=== PATIENT | male | born 1970 | race Two or more races ===

== ENCOUNTER 2024-02-06 07:05 | Day surgery (SDC) | payer OTHER ==
[2024-02-04 11:35] LABS: Urine Bacteria None Seen /hpf (None Seen)
[2024-02-04 12:28] LABS: Basophils # (auto) 0 10 ^3/uL (0-0.2); Basophils % (auto) 0.1 % (0.0-2.0); Eosinophils # (auto) 0 10 ^3/uL (0-0.8); Neutrophils # (auto) 8.6 10 ^3/uL (1.6-8.6); White Blood Cell 10.5 10^3/uL (4.4-10.8)
[2024-02-04 12:31] LABS: Eosinophils % (auto) 0.2 % (0.0-7.0); Lymphocytes # (auto) 0.7 10 ^3/uL (0.4-5.4); Lymphocytes % (auto) 7.1 % (10.0-50.0); Mean Corpuscular Hemoglobin 35.4 pg (28.0-32.0); Mean Corpuscular Hgb Conc. 34.2 g/dL (32.0-36.0); Mean Corpuscular Volume 103.3 fL (80.0-100.0); Monocytes # (auto) 1.1 10 ^3/uL (0-1.3); Monocytes % (auto) 10.5 % (0.0-12.0); Neutrophils % (auto) 82.1 % (37.0-80.0); Nucleated Red Blood Cells % 0.3 %; Red Blood Cells 6.05 10^6/uL (4.5-5.90)
[2024-02-04 12:39] LABS: Urine Blood Negative /uL (Negative); Urine Clarity Clear (Clear); Urine Color Yellow (Yellow); Urine Protein, UAD TRACE (Negative); Urine Specific Gravity 1.015 (1.001-1.035); Urine Urobilinogen 3 mg/dL (Negative); Urine WBC 1 /hpf (0 - 3); Urine pH 6.5 (5.0-9.0)
[2024-02-04 12:48] LABS: INR 1.25 (0.9-1.15); Partial Thromboplastin Time 25.1 SEC (24.5-34.5)
[2024-02-04 13:00] LABS: Alanine Aminotransferase 98 U/L (7-40); Albumin 3.8 g/dL (3.2-4.8); Alkaline Phosphatase 66 U/L (46-116); Anion Gap 4 (5-15); Aspartate Aminotransferase 37 U/L (13-40); BUN/Creatinine Ratio 11.1 (10.0-20.0); Blood Urea Nitrogen 11 mg/dL (9-23); Calcium 8.7 mg/dL (8.5-10.1); Carbon Dioxide 26 mmol/L (20-30); Chloride 106 mmol/L (98-107); Glucose 106 mg/dL (74-106); Sodium 136 mmol/L (136-145)
[2024-02-04 13:01] LABS: Bilirubin, Total 1.3 mg/dL (0.2-1.0); Total Protein 5.9 g/dL (5.7-8.2)
[2024-02-04 13:03] LABS: Hematocrit 62.5 % (41.0-53.0)
[2024-02-04 13:07] LABS: Hemoglobin 21.4 g/dL (13.5-17.5)
[2024-02-04 13:29] LABS: Macrocytosis Slight; Platelet Estimate Decreased
[~2024-02-06] VITALS: Ht 180.3 cm; Wt 68.0 kg
[~2024-02-06 07:05] MED LIST: ASPI1TAB20 PO; CARV3.1240 PO; LISI40TA16 PO; ROSU5TAB5 PO
[2024-02-06] MEDS ORDERED: ceFAZolin 2 GM/D5W50ml 50 ML IV ONE (07:14)
[2024-02-06] MEDS ORDERED: LIDOCAINE 2% (LOCAL ANESTH.) PF 5ml SDV ONE ×2 (07:23→08:10)
[2024-02-06] MEDS ORDERED: PROPOFOL 10 MG/ML 20 ML IV ONE ×3 (07:23→08:09)
[2024-02-06] MEDS ORDERED: fentaNYL CITRATE 100 MCG/2 ML VL ONE (07:23)
[2024-02-06] MEDS ORDERED: GLYCOPYRROLATE 0.2 MG/ML 1ML VIAL ONE (07:23)
[2024-02-06] MEDS ORDERED: DexAMETHasone SOD PHOS 10MG/1ML VIAL INJ ONE (07:23)
[2024-02-06] MEDS ORDERED: KETAMINE 50mg/ML 1ml syringe ONE (07:23)
[2024-02-06] MEDS ORDERED: ONDANSETRON HCL 4 MG/2 ML VIAL ONE (07:23)
[2024-02-06] MEDS ORDERED: KETOROLAC TROMETH 30 MG/ML 1ML VIAL ONE (07:23)
[2024-02-06] MEDS ORDERED: BUPIVACAINE W/ EPINEPH 0.5% INJ 50ML MDV IJ ONE (07:23)
[2024-02-06] MEDS ORDERED: POVIDONE IODINE 10 % TOPICAL OINT 30GM TOP ONE (07:24)
[2024-02-06] MEDS: CELECOXIB 100 MG CAP PO ONE (07:25)
[2024-02-06] MEDS: GABAPENTIN 400 MG CAP PO ONE (07:25)
[2024-02-06] MEDS: ACETAMINOPHEN IV 1000 MG/100ML (10MG/ML) IV ONE (07:25)
[2024-02-06] MEDS ORDERED: LIDOCAINE HCL 2% TOP JELLY 5ML TOP ONE (08:13)
[2024-02-06 08:33] VITALS: TEMP 99.3; O2SAT 99
[2024-02-06] MEDS ORDERED: ACE3T PO (08:37)
[2024-02-06] MEDS ORDERED: fentaNYL CITRATE 100 MCG/2 ML VL IV PRN (08:45)
[2024-02-06] MEDS ORDERED: LABETALOL HCL 5 MG/ML 4ML SYRINGE IV PRN (08:45)
[2024-02-06] MEDS ORDERED: NALOXONE HCL 0.4 MG/ML VIAL IV PRN (08:45)
[2024-02-06] MEDS ORDERED: hydrALAZINE HCL 20 MG/ML VL IV PRN (08:45)
[2024-02-06] MEDS ORDERED: ONDANSETRON HCL 4 MG/2 ML VIAL IV PRN (08:45)
[2024-02-06] MEDS ORDERED: FLUMAZENIL 0.1 MG/ML INJ 10ML MDV IV PRN (08:45)
[2024-02-06] MEDS ORDERED: ePHEDrine SULFATE 50 MG/ML AMP IV PRN (08:45)
[2024-02-06] MEDS ORDERED: HYDROmorphone HCL 2 MG/ML VL/or syr ONE (08:54)
[2024-02-06] MEDS: HYDROmorphone HCL 2 MG/ML VL/or syr IV PRN (08:57)
[2024-02-06] MEDS: oxyCODONE HCL 5MG TAB PO PRN (09:45)
[2024-02-06 10:10] VITALS: BP 138/85; PULSE 63; RESP 11; O2SAT 98
== END 2024-02-06 10:20 | disposition home or self-care (01) ==
LOC: SUR 07:05
PROVIDERS: ATTEND Surgery
DX: K40.90 Unilateral inguinal hernia, without obstruction or gangrene, not specified as recurrent (principal); I10 Essential (primary) hypertension; I25.2 Old myocardial infarction; G89.29 Other chronic pain; E78.5 Hyperlipidemia, unspecified; F17.210 Nicotine dependence, cigarettes, uncomplicated; Z79.01 Long term (current) use of anticoagulants; Z79.82 Long term (current) use of aspirin; Z79.899 Other long term (current) drug therapy; Z98.61 Coronary angioplasty status; Z98.890 Other specified postprocedural states
CPT/HCPCS: 36415; 49505; 80053; 81001; 85025; 85610; 85730; 86850; 86900; 86901; J0131; J0690; J1100; J1170; J1885; J2001; J2405; J2704; C1781

== ENCOUNTER 2024-10-21 10:04 | Inpatient (IN) | payer BC, OTHER ==
[2024-10-21] VITALS (36 sets, daily range): BP systolic 56–150; BP diastolic 58–100; PULSE 69–127; RESP 16–30; TEMP 97.6–100.4; O2SAT 79–100
[~2024-10-21] VITALS: Ht 182.9 cm; Wt 80.1 kg
[~2024-10-21 10:04] MED LIST changes: +ACE3T PO
[2024-10-21] MEDS ORDERED: EPINEPHrine HCL 250 ML IV ONE (10:09)
[2024-10-21] MEDS ORDERED: NOREPINEPHRINE 8 MG/250ML KIT 250 ML IV ONE (10:10)
[2024-10-21] MEDS: NOREPINEPHRINE 8 MG/250ML KIT 250 ML IV SCH (10:19)
[2024-10-21] MEDS ORDERED: NOREPINEPHRINE 8 MG/250ML KIT 250 ML IV SCH (10:30)
[2024-10-21 10:31] LABS: Urine Bacteria None Seen /hpf (None Seen)
[2024-10-21] MEDS: PROPOFOL 100 ML IV SCH (10:40)
--- NOTE | 2024-10-21 10:48 | RESUS ---
CODE BLUE ASSESSSMENT History of Events History of Events: Patient brought to ER via EMS as a secure code blue Patient was found down and unresponsive by co workers at an imaging center. Per EMS, co workers reported no palpable pulse. CPR was initiated by patients co workers. AED applied and delivered 2 shocks prior to EMS arrival. EN route to ER patient remained asystole. Epi x4 given en route to ER Initial Information Date: Oct 21, 2024 Time: 10:03 Location of Arrest: In Field Arrest Witnessed: Yes CPR started by whom: Bystander Pre-Hospital Care: ACLS Type of arrest: Cardiac Spontaneous Respirations: No Monitoring: Pulse Oximetry, Telemetry Crash Cart Opened and Supplies: Yes Airway Ventilation Breathing at Onset: Assisted Oxygen Delivery Method: Ambu-Bag Artificial Ventilation: Bag/Mask Intubation Time: 10:08 Intubation Size: 8.0 cuffed Intubated by: Dr Hidalgo Intubation Attempts: 1 Intubated orally: Yes Confirmation: Auscultation, Exhaled CO2 Comments: PATIENT SUCCESSFULLY INTUBATED AFTER ROSC ACHIEVED Circulation Circulation #1: Time: 10:03 Circulation Comment: asystole Circulation #2: Time: 10:05 Pulse Rate (adult): 127 Blood Pressure Systolic: 216 Blood Pressure Diastolic: 130 Temperature (Fahrenheit): 97.9 Circulation Comment: sinus tachycardia Procedure - IV Procedure - IV : IV start time: 10:03 IV Side: Right IV Location: Antecubital IV Catheter Type: Peripheral IV IV Placed: In Hospital IV Placed by YELITZA HIGGINS IV Line Care: Saline Flush Procedure - Intraosseous Site of Intraosseous: Tibia aletha-medial Intraosseous inserted by: EMS Medications & Response Medications and Responses #1: Medication Time: 10:03 ADULT Medications Given ADULT: Epinephrine 1 mg Route of Administration: IV EKG Rhythm: Asystole Medications and Responses #2: Medication Time: 10:04 ADULT Medications Given ADULT: Sodium Bacarbinate 50 meq, Calcium Chloride 10 mL Route of Administration: IV Medications and Responses #3: Medication Time: 10:06 ADULT Medications Given ADULT: Sodium Bacarbinate 50 meq Route of Administration: IV EKG Rhythm: Sinus Tachycardia Procedure - Central Venous Cat Central venous catheter time: 10:15 Central venous catheter site: Rt Femoral Central Venous Catheter Insert: DR HIDALGO Nurses Notes [place] Coma Scale Eye Opening: None (1) [place] Coma Scale Verbal: None (1) [place] Coma Scale Motor: None (1) [place]ow Total: 3 Pupil Reaction: Sluggish Bedside Blood Glucose: 185 Time Code Ended Time Code Ended: 10:05 Post Arrest Status: Ventilated Outcome of code: Successful Code Team Present: DR GYPSY HIDALGO RN RONALDO RN PADMINI PELAYO RT AMY LAP CUTTER TRUER OPERATOR CASSIUS TORREHS IZABELA RN PIERCE ROSC Time of ROSC: 10:05 Izabela Bowman Oct 21, 2024 10:48
[2024-10-21 10:49] LABS: Basophils # (auto) 0 10 ^3/uL (0-0.2); Basophils % (auto) 0.3 % (0.0-2.0); Eosinophils # (auto) 0.1 10 ^3/uL (0-0.8); Eosinophils % (auto) 1.1 % (0.0-7.0); Hematocrit 61.8 % (41.0-53.0); Hemoglobin 19.7 g/dL (13.5-17.5); Lymphocytes # (auto) 3.6 10 ^3/uL (0.4-5.4); Lymphocytes % (auto) 30.4 % (10.0-50.0); Mean Corpuscular Hemoglobin 31.7 pg (28.0-32.0); Mean Corpuscular Hgb Conc. 31.9 g/dL (32.0-36.0); Mean Corpuscular Volume 99.1 fL (80.0-100.0); Monocytes # (auto) 1.1 10 ^3/uL (0-1.3); Monocytes % (auto) 9.3 % (0.0-12.0); Neutrophils # (auto) 6.9 10 ^3/uL (1.6-8.6); Neutrophils % (auto) 58.9 % (37.0-80.0); Platelet Count (auto) 95 10^3/uL (140-450); Red Blood Cells 6.23 10^6/uL (4.5-5.90); Red Cell Distribution Width 16.2 % (11.8-14.3); White Blood Cell 11.7 10^3/uL (4.4-10.8)
[2024-10-21] MEDS: PROPOFOL 100 ML IV ONE (10:50)
[2024-10-21] MEDS: fentaNYL Drip 2500mCg/250mlNS 250 ML IV ONE (10:58)
[2024-10-21] MEDS: MIDAZOLAM DRIP 50 mg/50mL 50 ML IV ONE (10:58)
[2024-10-21] MEDS: fentaNYL Drip 2500mCg/250mlNS 250 ML IV SCH (11:00)
[2024-10-21] MEDS: MIDAZOLAM DRIP 50 mg/50mL 50 ML IV SCH (11:04)
[2024-10-21 11:07] LABS: Urine Blood TRACE /uL (Negative); Urine Clarity Turbid (Clear); Urine Color Yellow (Yellow); Urine Mucus FEW (None Seen); Urine Protein, UAD 1+ (Negative); Urine Specific Gravity 1.016 (1.001-1.035); Urine Squamous Epithelial Cell None Seen /hpf (<5); Urine Urobilinogen 2 mg/dL (Negative); Urine WBC 7 /HPF (0-3); Urine pH 6.5 (5.0-9.0)
[2024-10-21 11:20] LABS: Alkaline Phosphatase 101 U/L (46-116); Anion Gap 19 (5-15); BUN/Creatinine Ratio 6.2 (10.0-20.0); Calcium 10.2 mg/dL (8.7-10.4); Carbon Dioxide 22 mmol/L (20-31); Lipase 52 U/L (12-53); Potassium 3.7 mmol/L (3.5-5.1); Sodium 138 mmol/L (136-145)
[2024-10-21 11:21] LABS: Albumin 3.9 g/dL (3.2-4.8); Bilirubin, Total 0.6 mg/dL (0.2-1.0); Total Protein 6.4 g/dL (5.7-8.2)
[2024-10-21 11:23] LABS: Lactic Acid w/Reflex 9.2 mmol/L (0.4-2.0)
--- NOTE | 2024-10-21 11:32 | ED.PDOC ---
CPR-HPI HPI Comments Camden Lewis is a 54-year-old male patient who presents to the ED via EMS due to cardiac arrest. 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 When EMS arrived on scene hospital monitor showed PEA and one opportunity and afterwards only asystole, administer 4 epinephrine and intubated with laryngeal mask. Upon arrival to the ED hospital monitor evidence asystole, when epinephrine, two bicarbonate in one calcium was administered, obtaining ROSC after two rounds of CPR. Patient was intubated with the endotracheal tube 8., right femoral A-line and central line was placed as well, patient required norepinephrine, propofol, fentanyl and Versed at this point. Planning to complete [place] CT to rule out pulmonary embolism and aortic dissection. Could not obtain review of systems due to clinical status. Obtain past medical history from son who was at bedside Past medical history: Hypertension, questionable diabetes, COPD/emphysema, [place] in 2023 with placement of two stents, chronic back pain secondary to spinal fusion Surgical history: PCI with two stents placement in 2023 Family history: Noncontributory Social history: Lives in [place]. Recently stopped smoking two months ago due to diagnosis of emphysema (40 pack-year history of smoking). Ethanol abuse (drinks Tequila most days, son can not quantify). Medicine all CBD. Denies other drug abuse Allergies: Denies Home medication: Medical CBD, opiates, questionable warfarin, Plavix Chief Complaint: CPR Time Seen by MD: 11:21 Primary Care Provider: UNKNOWN Allergies: Coded Allergies: NO KNOWN ALLERGIES (Unverified , 10/21/24) Mode of Arrival: EMS Physical Exam General Appearance: No Apparent Distress, Other (Post ROSC) HEENT: Other (Patient's pupil are pint point under fentanyl. Sluggish corneal photo reflex) Neck: Full Range of Motion, Non-Tender, Normal, Normal Inspection Respiratory: Lungs Clear, Other (Patient requires endotracheal intubation with mechanical assisted ventilation) Cardiovascular: No Edema, No JVD, No Murmur, No Gallop, Normal Peripheral Pulses, Regular Rate/Rhythm Breast Exam: Deferred Gastrointestinal: No Organomegaly, Non Tender, No Pulsatile Mass, Normal Bowel Sounds, Soft Genitalia: Deferred Pelvic: Deferred Rectal: Deferred Extremities: No calf tenderness, Normal capillary refill, Normal inspection, Normal range of motion, Non-tender, No pedal edema Neurologic: Other (Post ROSC, non responsive) Cerebellar Function: NOT DONE Reflexes: NOT DONE Skin: Cyanosis Lymphatic: No Adenopathy EKG EKG : Comments Initially sinus tachycardia with incomplete LBBB Was a procedure done? Was a procedure done?: Yes Sedation Sedation?: No Informed consent obtained: No Arterial Puncture Indication: Assess ventilatory status, Assess acid-base status Procedure: Sterile Preparation, Arterial Punct Obtained Location: Right Femoral Informed consent obtained: No Risks/benefits/alt described: No UTO Consent Could not obtain informed consent due to clinical status of cardiac arrest and no family at bedside. Procedure supervised by Dr. Malhotra Central Line Recorder of insertion practice: Bit Welder Occupation of setter off: Other (Resdient) Indication: Hypotension, CVP monitoring, Volume resuscitation Room prepared for procedure: Yes Bit Welder performed hand hygien: Yes Maximal sterile barrier precau: Mask/Eye shield, Sterile gown, Cap, Sterlie gloves, Large sterlie drape Skin Preparation: Chlorhexidine gluconate Skin preparation completely dr: Yes Insertion site: Right, Femoral, Line secured Central line catheter type: [id number] dialysis Number of lumens: 3 Central line exchanged over a: No Antiseptic ointment applied to: Yes Post Assessment: Proper placement Informed consent obtained: No Risks/benefits/alt described: No UTO Consent Could not obtain informed consent due to clinical status. Procedure supervised by Dr. Malhotra Intubation Indication: Respiratory Insufficiency, Airway Protection Prep: Preoxygenation Pretreated with: Nothing Medicated with: Nothing Intubation Approach: Orotracheal Intubation size: cm (8) Informed consent obtained: No Risks/benefits/alt described: No UTO Consent Could not obtain informed consent due to clinical status, patient came in for cardiac arrest and no family at bedside. Switch laryngeal mask to endotracheal tube after obtaining ROSC. Procedure mixing supervisor Dr. Malhotra Differential Dx CPR Differential Diagnosis: Cardiopulmonary arrest, Cardiac Tamponade, Cardiogenic shock, Electrolyte disorder, Heart Block, Myocardial Infarction, Pneumothorax, Pulmonary Embolus, Respiratory Failure, Ruptured Aortic Aneurysm X-Ray, Labs, Meds, VS Vital Signs Date Time Temp Pulse Resp B/P (MAP) Pulse Ox O2 Delivery O2 Flow Rate FiO2 10/21/24 12:00 97.9 93 30 90/63 93 70 97.9 10/21/24 11:40 93 30 93 70 10/21/24 10:48 208.2 127 Ambu-Bag 10/21/24 10:29 90 20 90/63 (72) 90 100 10/21/24 10:21 82 16 56/60 (59) 87 100 10/21/24 10:07 127 10/21/24 10:04 97.9 Lab Test 10/21/24 12:53 10/21/24 12:44 10/21/24 11:00 10/21/24 10:25 Range/Units Lactic Acid Level 2.2 *H 0.4-2.0 mmol/L Troponin I High Sensitivity 291 *H </=54 ng/L Blood Gas Specimen Type Arterial Arterial Blood Gas Sample Site Arterial line Arterial line Blood Gas Patient Temperature 37.0 37.0 Arterial Blood Date Drawn [id number] Arterial Blood pH 7.341 L 7.192 *L 7.350-7.450 Arterial Blood Partial Pressure CO2 43.4 61.0 *H 35.0-48.0 mmHg Arterial Blood Partial Pressure O2 102.5 368.4 *H 83.0-108.0 mmHg Arterial Blood HCO3 22.9 22.9 21.0-28.0 mmol/L Elvin Test N/a N/a Blood Gas Total Hemoglobin > 21.00 *H > 21.00 *H 13.5-17.5 g/dL Blood Gas Set Respiration Rate 24.0 20.0 Blood Gas Modality Vent - ac Vent - ac FiO2 % 70.0 100.0 Blood Gas Tidal Volume 500.0 500.0 Blood Gas PEEP or CPAP 5.0 8.0 Blood Gas Critical Value Read Back Yes Yes Blood Gas Notified Whom . pollo espinosa m. md Blood Gas Notified Time [id number] Blood Gas Notified By Residence Leasing Agent john chinchilla hedis abstractor Urine Color Yellow Yellow Urine Clarity Turbid H Clear Urine pH 6.5 5.0-9.0 Urine Specific [place] 1.016 1.001-1.035 Urine Protein 1+ H Negative Urine Ketones Trace Negative Urine Blood Trace H Negative /uL Urine Nitrite Negative Negative Urine Bilirubin Negative Negative Urine Urobilinogen 2 H Negative mg/dL Urine Leukocyte Esterase 1+ Negative /uL Urine RBC 15 0 - 3 /hpf Urine Microscopic WBC 7 H 0-3 /HPF Urine Squamous Epithelial Cells None seen <5 /hpf Urine Bacteria None seen None Seen /hpf Urine Mucus Few None Seen Urine Glucose Normal Normal mg/dL Urine Opiates Screen Neg NEGATIVE Urine Fentanyl Screen Neg NEGATIVE Urine Barbiturates Screen Neg NEGATIVE Urine Phencyclidine Screen Neg NEGATIVE Urine Amphetamines Screen Neg NEGATIVE Urine Benzodiazepines Screen Neg NEGATIVE Urine Cocaine Screen Neg NEGATIVE Urine Cannabinoids Screen Pos NEGATIVE Test 10/21/24 10:23 Range/Units White Blood Count 11.7 H 4.4-10.8 10^3/uL Red Blood Count 6.23 H 4.5-5.90 10^6/uL Hemoglobin 19.7 H 13.5-17.5 g/dL Hematocrit 61.8 H 41.0-53.0 % Mean Corpuscular Volume 99.1 80.0-100.0 fL Mean Corpuscular Hemoglobin 31.7 28.0-32.0 pg Mean Corpuscular Hemoglobin Concent 31.9 L 32.0-36.0 g/dL Red Cell Distribution Width 16.2 H 11.8-14.3 % Platelet Count 95 L 140-450 10^3/uL Mean Platelet Volume 10.6 6.9-10.8 fL Neutrophils (%) (Auto) 58.9 37.0-80.0 % Lymphocytes (%) (Auto) 30.4 10.0-50.0 % Monocytes (%) (Auto) 9.3 0.0-12.0 % Eosinophils (%) (Auto) 1.1 0.0-7.0 % Basophils (%) (Auto) 0.3 0.0-2.0 % Neutrophils # (Auto) 6.9 1.6-8.6 10 ^3/uL Lymphocytes # (Auto) 3.6 0.4-5.4 10 ^3/uL Monocytes # (Auto) 1.1 0-1.3 10 ^3/uL Eosinophils # (Auto) 0.1 0-0.8 10 ^3/uL Basophils # (Auto) 0 0-0.2 10 ^3/uL Nucleated Red Blood Cells 0.0 % Sodium Level 138 136-145 mmol/L Potassium Level 3.7 3.5-5.1 mmol/L Chloride Level 97 L 98-107 mmol/L Carbon Dioxide Level 22 20-31 mmol/L Anion Gap 19 H 5-15 Blood Urea Nitrogen 8 L 9-23 mg/dL Creatinine 1.30 0.700-1.30 mg/dL Glomerular Filtration Rate Calc 65 >90 mL/min BUN/Creatinine Ratio 6.2 L 10.0-20.0 Serum Glucose 233 H 74-106 mg/dL Lactic Acid Level 9.2 *H 0.4-2.0 mmol/L Calcium Level 10.2 8.7-10.4 mg/dL Total Bilirubin 0.6 0.2-1.0 mg/dL Aspartate Amino Transferase (AST) 66 H 13-40 U/L Alanine Aminotransferase (ALT) 53 H 7-40 U/L Alkaline Phosphatase 101 46-116 U/L Troponin I High Sensitivity 16 </=54 ng/L B-Type Natriuretic Peptide 93.92 0-100 pg/mL Total Protein 6.4 5.7-8.2 g/dL Albumin 3.9 3.2-4.8 g/dL Lipase 52 12-53 U/L X-Ray, Labs, Meds, VS Comment Obtained laboratory work up, urine, chest x-ray, head CT and [place] CT abdomen pelvis and chest. Time of 1ST Reevaluation: 13:44 Reevaluation 1ST: Unchanged Patient Education/Counseling: Diagnosis, Treatment, Pt Unresponsive Family Education/Counseling: Diagnosis, Treatment, Prognosis Departure 1 Departure Time of Disposition: 13:44 Impression: Primary Impression: Cardiac arrest Disposition: ADMITTED INPATIENT Admit to: ICU Condition: Critical Additional Instructions: Completed complementary workup, ruled out STEMI, intracranial bleed, pulmonary embolism and aortic dissection. Pending echocardiogram to evaluate tamponade. Recommend admission patient for further workup and for eventual repeat of his CT in 48 hours to evaluate anoxic brain injury. Of completing CT and during echocardiogram, patient presented to episodes of lower GI bleed, send stool occult blood and indicated rectal tube. Patient has poor prognosis Critical Care Note Critical Care Time?: No Heart Score Heart Score: Heart Score Response (Comments) Value History N/A 0 EKG N/A 0 Age N/A 0 Risk Factors N/A 0 Troponin N/A 0 Total 0 Stability Stability form required: ANGELO Rowell RESIDENT Oct 21, 2024 11:32
[2024-10-21 11:34] LABS: Alanine Aminotransferase 53 U/L (7-40); Aspartate Aminotransferase 66 U/L (13-40); Blood Urea Nitrogen 8 mg/dL (9-23); Chloride 97 mmol/L (98-107); Glucose 233 mg/dL (74-106)
[2024-10-21 11:35] LABS: Amphetamine Screen, Urine Neg (NEGATIVE); Barbiturate Scree,Urine Neg (NEGATIVE); Benzodiazephine Screen, Urine Neg (NEGATIVE); Cannabinoid Screen, Urine Pos (NEGATIVE); Cocaine Screen, Urine Neg (NEGATIVE); Opiate Scree,Urine Neg (NEGATIVE); Phencyclidine Screen, Urine Neg (NEGATIVE)
--- NOTE | 2024-10-21 11:47 | DVH ---
EXAM: XY CHEST XRAY 1 VIEW HISTORY: OG and ET tube placement COMPARISON: None TECHNIQUE: Portable AP views of the chest were performed. FINDINGS: Endotracheal tube is identified with its tip 7.5 cm above the joy. OG tube is identified with its tip at least 11 cm distal to the GE junction. Probable emphysematous changes of the upper lobes. The re is mild interstitial prominence centrally and in the lung bases. Probable left lung base scarring. No pneumothorax. The heart is borderline enlarged. There are postoperative changes of ACDF. IMPRESSION: 1. Endotracheal and OG tubes as above. The endotracheal tube could be advanced 3 cm followed by repea t chest x-ray. 2. Interstitial prominence centrally and in the lung bases which may be due to reactive airways disea se or mild CHF.
[2024-10-21] MEDS: IOHEXOL 350 MG/ML 100ML IJ ONE (11:49)
--- NOTE | 2024-10-21 12:23 | DVH ---
EXAM: CT HEAD WITHOUT CONTRAST HISTORY: cardiac arrest COMPARISON: None TECHNIQUE: Axial images of the head were obtained and reformatted in coronal and sagittal planes. All CT scans at this medical facility are performed using dose modulation techniques as appropriate t o a performed exam including the following: Automated exposure control was utilized; adjustment of th e MA and/or KV according to patient size; and use of iterative reconstruction technique. CT Dose: CTDI volume is 66 mGy. Dose-length product is 1180 mGy*cm FINDINGS: There is no evidence of acute intracranial hemorrhage, mass, mass effect midline shift. There is no h ydrocephalus or extra-axial fluid collection. Li-white matter differentiation is maintained. There is intravascular contrast noted. There is patchy mucosal thickening in the ethmoid and sphenoid sinuses. The mastoid air cells are cl ear. The calvarium is intact. IMPRESSION: 1. No acute intracranial process. HS:Y
--- NOTE | 2024-10-21 13:25 | DVH ---
CTA CHEST and CT ABDOMEN AND PELVIS CLINICAL HISTORY: cardiac arrest, please do PE study and angio of abdomen TECHNIQUE: Multiple contiguous axial images of the chest, abdomen and pelvis with intravenous contras t. The images were reformatted degenerate coronal and sagittal reconstructions. 100 cc of Omnipaque 300 contrast was injected intravenously. All CT scans at this medical facility are performed using dose modulation techniques as appropriate t o a performed exam including the following:Automated exposure control was utilized; adjustment of the MA and/or KV according to patient size; and use of iterative reconstruction technique. Radiation Dose Information: CT Dose: CTDI volume is 15 mGy. Dose-length product is 05/06/2073 mGy*cm FINDINGS: There is no evidence of a pulmonary arterial filling defect to suggest pulmonary embolism. The main p ulmonary artery appears normal in size. The thoracic aorta demonstrates normal caliber. The heart si ze is within normal limits. There is no pericardial effusion. There are moderate upper lobe predominant emphysematous changes in the lungs. There is curvilinear sc arring versus atelectasis in the bilateral posterior lung bases. There is no focal lung consolidation . There is no pleural effusion or pneumothorax. There is no evidence of mediastinal mass or lymphadenopathy. There is no axillary lymphadenopathy. An endotracheal tube terminates above the joy. There is an NG tube in the esophagus terminating in t he stomach. The liver, gallbladder, pancreas, kidneys, adrenal glands, and spleen appear within normal limits. There is no evidence of abdominal lymphadenopathy. There is no free fluid or free air. The stomach grossly appears unremarkable.The small and large bowel loops demonstrate normal caliber a nd appear within normal limits. Air intermixed with stool is seen throughout the colon. There are calcified atherosclerotic changes in the abdominal aorta. The IVC appears within normal li mits. There is a Smith catheter in the bladder which is poorly filled. There is small amount of air in the bladder. Pelvic organ appears within normal limits. There is no evidence of a pelvic mass or lymphad enopathy. There is no free fluid collection. There is a central venous catheter in the right common f emoral vein. There is no acute osseous abnormality. IMPRESSION: 1. There is no evidence of a pulmonary arterial filling defect to suggest pulmonary embolism. 2. Moderate upper lobe predominant emphysematous changes in the lungs. There is scarring versus atele ctasis in the bilateral lung bases. 3. There is no acute process in the abdomen and pelvis. HS:Y
[2024-10-21] MEDS: AMIODARONE 360mg/200mL PREMIX 200 ML IV ONE (14:28)
--- NOTE | 2024-10-21 14:29 | ECG ---
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
--- NOTE | 2024-10-21 14:43 | ECG ---
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
[2024-10-21] MEDS ORDERED: ONDANSETRON HCL 4 MG/2 ML VIAL IV PRN (14:45)
[2024-10-21] MEDS ORDERED: DEXTROSE (50%) 50ML SYRG IV PRN (14:45)
[2024-10-21] MEDS: AMIODARONE 360mg/200mL PREMIX 200 ML IV NR (14:45)
[2024-10-21] MEDS ORDERED: IBUPROFEN 100MG/5ML ORAL SUSP 100 MG/5 ML UD GT PRN (14:45)
--- NOTE | 2024-10-21 15:07 | DVHINCON2 ---
Date Seen: Oct 21, 2024 Referring Physician MD Roscoe Reason for Consultation Cardiac arrest History of Present Illness This is a 54-year-old man who presented to the emergency room via EMS as a secure code blue secondary to cardiopulmonary arrest. At time of assessment the patient was found mechanically ventilated, chemically sedated, and off vasopressors. Information obtained from records and medical staff which report the patient was found unresponsive by coworkers at an imaging center with CPR initiated and AED shocks x 2 delivered prior to EMS arrival. ACLS protocol was implemented by EMS including 4 rounds of Epinephrine. ROSC was subsequently achieved with the patient being emergently endotracheally intubated upon arrival to the Emergency Room. During admission the patient transitioned from a sinus rhythm to sustained pulseless ventricular tachycardia undergoing defibrillation at 200 J with successful ROSC. Cardiology consulted STAT for further evaluation. Upon arrival the patient underwent an initial twelve lead electrocardiogram revealing a sinus tachycardia rhythm with ischemia present to anteroseptal and inferior wall. Post 2nd cardiac arrest 12 lead electrocardiogram revealed global ischemia mostly to inferior wall. Troponin levels are trending up with latest in the 200s ng/L. Per , the patient complaint of SOB, chest discomfort, and poor appetite yesterday. Significant medical history includes coronary artery disease status post PTCA including two CATALINO (2016, 2020) on ASA therapy, hypertension, dyslipidemia, chronic thrombocytopenia, prediabetes, peripheral neuropathy, chronic back pain, anxiety, depression, history of GI bleed, PUD, and a smoking history of 30 pack-years. Past Medical History Past medical history reviewed. No other significant than mentioned above. Past Surgical History PTCA including two CATALINO (2017, 2020) Hernia repair Vertebral fusion Anterior cervical vertebral fusion Right shoulder Lumbar Family History Family history reviewed. Social History Unable to retrieve at this time. Allergies: Coded Allergies: NO KNOWN ALLERGIES (Unverified , 10/21/24) Home Meds Home medications reviewed. Current Medications Current Medications Medications (Trade) Dose Ordered Sig/Abundio Route PRN Reason Start Time Stop Time Status Last Admin Norepinephrine Bitartrate 250 ml @ 3.75 mls/hr Q24H IV 10/21/24 10:30 10/21/24 10:32 DC Propofol 100 ml @ 2.4 mls/hr Q24H IV 10/21/24 10:45 Norepinephrine Bitartrate 250 ml @ 3.75 mls/hr Q24H IV 10/21/24 11:00 Midazolam HCl 50 ml @ 1 mls/hr Q24H IV 10/21/24 11:00 Fentanyl Citrate 250 ml @ 2.5 mls/hr Q24H IV 10/21/24 11:00 Sodium Chloride 1,000 ml @ 100 mls/hr Q10H IV 10/21/24 11:30 Ondansetron HCl (Zofran) 4 mg Q4HP PRN IV NAUSEA / VOMITING 10/21/24 14:45 Diagnostic Test (Pha) (Accu-Chek Comfort Curve T) 1 strip ACHS 10/21/24 17:00 Insulin Human Regular (InsuLIN R) ACHS SC 10/21/24 17:00 Dextrose 50 ml UD PRN IV Blood Sugar LESS THAN 60 10/21/24 14:45 Ceftriaxone Sodium 50 ml @ 100 mls/hr DAILY@09 IV 10/22/24 09:00 Ibuprofen (MOTRIN 100MG/5 mL ORAL SUSP) 600 mg Q6HP PRN GT TEMP GREATER THAN 100.4 10/21/24 14:45 Heparin Sodium (Porcine) 5,000 units Q12HR SC 10/21/24 22:00 Review of Systems Constitutional: No symptom reported Ears, Nose, & Throat: No symptom reported Eyes: No symptom reported Neurological: No symptoms reported Pulmonary/Respiratory: SOB Cardiovascular: Cardiopulmonary arrest, chest pain Gastrointestinal: No symptom reported Genitourinary: No symptom reported Musculoskeletal: No symptom reported Skin: No symptom reported Psychiatric: No symptom reported Endocrine: No symptom reported Hemotologic/Lymphatic: No symptom reported Vital Signs Vital Signs Date Time Temp Pulse Resp B/P (MAP) Pulse Ox O2 Delivery O2 Flow Rate FiO2 10/21/24 14:28 88 10/21/24 12:00 97.9 30 90/63 93 70 97.9 10/21/24 10:48 Ambu-Bag Physical Exam General Appearance: Withdrawn. Chemically sedated. Off vasopressors. Mechanically ventilated Head Exam: Normal inspection Neck Exam: Normal inspection. Normal alignment Pulmonary/Respiratory: Clear bilateral breath sounds. Mechanically ventilated with 30% FiO2 Cardiovascular/Chest: Regular rate and rhythm. S1, S2. Sinus rhythm with global ischemia present mostly to inferior wall Peripheral Pulses: 2+ Radial (R). 2+ Radial (L). 2+ Pedal (R). 2+ Pedal (L) Abdominal Exam: Normal bowel sounds. Soft. Ankle Exam: Negative ankle edema Lower extremities: Negative lower extremity edema Neuro/Mental Status: Chemically sedated. Withdrawn Thoughts/Psych: Unable to assess at this time Appearance: In no acute distress Skin Exam: Normal inspection. Normal color. Warm. Dry Labs/Diagnostic Data Labs Test 10/21/24 14:38 10/21/24 12:53 10/21/24 12:44 10/21/24 10:25 Range/Units Lactic Acid Level 2.2 *H 0.4-2.0 mmol/L Blood Gas Specimen Type Arterial Blood Gas Sample Site Arterial line Blood Gas Patient Temperature 37.0 Arterial Blood Date Drawn [id number] Arterial Blood pH 7.341 L 7.350-7.450 Arterial Blood Partial Pressure CO2 43.4 35.0-48.0 mmHg Arterial Blood Partial Pressure O2 102.5 83.0-108.0 mmHg Arterial Blood HCO3 22.9 21.0-28.0 mmol/L Elvin Test N/a Blood Gas Total Hemoglobin > 21.00 *H 13.5-17.5 g/dL Blood Gas Set Respiration Rate 24.0 Blood Gas Modality Vent - ac FiO2 % 70.0 Blood Gas Tidal Volume 500.0 Blood Gas PEEP or CPAP 5.0 Blood Gas Critical Value Read Back Yes Blood Gas Notified Whom pollo Panda Blood Gas Notified Time [id number] Blood Gas Notified By Walter frank Urine Color Yellow Yellow Urine Clarity Turbid H Clear Urine pH 6.5 5.0-9.0 Urine Specific [place] 1.016 1.001-1.035 Urine Protein 1+ H Negative Urine Ketones Trace Negative Urine Blood Trace H Negative /uL Urine Nitrite Negative Negative Urine Bilirubin Negative Negative Urine Urobilinogen 2 H Negative mg/dL Urine Leukocyte Esterase 1+ Negative /uL Urine RBC 15 0 - 3 /hpf Urine Microscopic WBC 7 H 0-3 /HPF Urine Squamous Epithelial Cells None seen <5 /hpf Urine Bacteria None seen None Seen /hpf Urine Mucus Few None Seen Urine Glucose Normal Normal mg/dL Urine Opiates Screen Neg NEGATIVE Urine Fentanyl Screen Neg NEGATIVE Urine Barbiturates Screen Neg NEGATIVE Urine Phencyclidine Screen Neg NEGATIVE Urine Amphetamines Screen Neg NEGATIVE Urine Benzodiazepines Screen Neg NEGATIVE Urine Cocaine Screen Neg NEGATIVE Urine Cannabinoids Screen Pos NEGATIVE Test 10/21/24 10:23 Range/Units Eosinophils (%) (Auto) 1.1 0.0-7.0 % Eosinophils # (Auto) 0.1 0-0.8 10 ^3/uL Basophils # (Auto) 0 0-0.2 10 ^3/uL Nucleated Red Blood Cells 0.0 % Sodium Level 138 136-145 mmol/L Potassium Level 3.7 3.5-5.1 mmol/L Chloride Level 97 L 98-107 mmol/L Carbon Dioxide Level 22 20-31 mmol/L Anion Gap 19 H 5-15 Blood Urea Nitrogen 8 L 9-23 mg/dL Creatinine 1.30 0.700-1.30 mg/dL Glomerular Filtration Rate Calc 65 >90 mL/min BUN/Creatinine Ratio 6.2 L 10.0-20.0 Serum Glucose 233 H 74-106 mg/dL Calcium Level 10.2 8.7-10.4 mg/dL Total Bilirubin 0.6 0.2-1.0 mg/dL Aspartate Amino Transferase (AST) 66 H 13-40 U/L Alanine Aminotransferase (ALT) 53 H 7-40 U/L Alkaline Phosphatase 101 46-116 U/L B-Type Natriuretic Peptide 93.92 0-100 pg/mL Total Protein 6.4 5.7-8.2 g/dL Albumin 3.9 3.2-4.8 g/dL Lipase 52 12-53 U/L Assessment Non ST-elevation myocardial infarction Pulseless ventricular fibrillation arrest Cardiopulmonary arrest with ROSC Rule out progressive coronary artery disease Coronary artery disease status post PTCA x2 CATALINO, on ASA Ischemic cardiomyopathy with LVEF <40% Thrombocytopenia Hypertension Dyslipidemia Pre-DM HX of tobacco use Plan/Recommendation (Dr. Davis) The patient with ventricular tachycardia arrest has been emergently scheduled for a cardiac catheterization and coronary angiogram at first available. All risks and benefits of the procedure were discussed with next of kin () as we ll as rest of family who agreed to proceed with intervention. All questions answered. In the meantime, continue with a transthoracic echocardiogram to evaluate cardiac function. Initiate heparin drip per pharmacy protocol including loading dose as well as nitroglycerin drip. Monitor H&H and platelet count closely. Rest of plan per clinical course. Thank you for allowing us to participate in this patient's care. Please call if you have any questions or concerns. Critical care time: 50 min. This medical document was created using an electronic medical record system with voice recognition software and computerized dictation system. Although this document has been carefully reviewed, there might still be some phonetic and typographical errors. Occasional wrong-word or ``sound-alike substitutions may have occurred due to the inherent limitations of voice recognition software. These areas are purely typographical due to imperfections of the software programs and do not reflect any compromise in the patient's medical care. Please read the chart carefully and recognize, using context, where these substitutions have occurred. Plan discussed with: Spouse, Daughter, Son, Other NYHA Physical activity limitations: Class3(Marked) ordinary Date of Service: Oct 21, 2024 Billing Provider: PATRICIA SUMMERS Cardiology Common Codes: 61292-[id number] CARE 30-74 MIN PATRICIA SUMMERS Oct 21, 2024 15:07
[2024-10-21 15:08] LABS: Basophils # (auto) 0 10 ^3/uL (0-0.2); Eosinophils # (auto) 0 10 ^3/uL (0-0.8); Eosinophils % (auto) 0.1 % (0.0-7.0)
[2024-10-21 15:09] LABS: Basophils % (auto) 0.3 % (0.0-2.0); Hemoglobin 20.1 g/dL (13.5-17.5); Lymphocytes # (auto) 0.8 10 ^3/uL (0.4-5.4); Lymphocytes % (auto) 4.9 % (10.0-50.0); Mean Corpuscular Hemoglobin 30.9 pg (28.0-32.0); Mean Corpuscular Hgb Conc. 32.3 g/dL (32.0-36.0); Mean Corpuscular Volume 95.6 fL (80.0-100.0); Monocytes # (auto) 1.5 10 ^3/uL (0-1.3); Monocytes % (auto) 9.2 % (0.0-12.0); Neutrophils # (auto) 14.4 10 ^3/uL (1.6-8.6); Neutrophils % (auto) 85.5 % (37.0-80.0); Nucleated Red Blood Cells % 0.1 %; Platelet Count (auto) 116 10^3/uL (140-450); Red Cell Distribution Width 14.8 % (11.8-14.3); White Blood Cell 16.8 10^3/uL (4.4-10.8)
[2024-10-21] MEDS ORDERED: NITROGLYCERIN 50MG/250ML 250 ML IV ONE (15:15)
[2024-10-21] MEDS ORDERED: HEPARIN DRIP/D5W 100UNITS/ML 250 ML IV SCH (15:15)
[2024-10-21] MEDS: HEPARIN IN NS 1000Units/500mL 1,500 ML ONE (15:26)
[2024-10-21] MEDS: IODIXANOL 320MG/ML 100ML BTL IV ONE (15:26)
--- NOTE | 2024-10-21 15:26 | RESUS ---
CODE BLUE ASSESSSMENT History of Events History of Events: PT WENT INTO PULSELESS VTACH. CPR INTIATED. Initial Information Date: Oct 21, 2024 Time: : Location of Arrest: ER Arrest Witnessed: Yes CPR started initial time: : CPR started by whom: Hospital Staff Type of arrest: Cardiac Pulse Present: No Monitoring: ECG, Pulse Oximetry, Capnography, Telemetry Crash Cart Opened and Supplies: Yes Airway Ventilation Breathing at Onset: Assisted Artificial Ventilation: Bag/Endo tube Circulation Circulation : Time: 14: Pulse Rate (adult): 79 Blood Pressure Systolic: 152 Blood Pressure Diastolic: 96 Defibrillation Defbrillation : EKG Rhythm: V-Tachycardia Compressions: Manual Time Defibrillator Shocked Pt.: : Defib. Joules: 200 Pulse Present: No Medications & Response Medications and Responses : Medication Time: 14: ADULT Medications Given ADULT: Amiodarone 300 mg Route of Administration: IV Heart Rate: 79 EKG Rhythm: Sinus Rhythm Nurses Notes Petty Coma Scale Eye Opening: None (1) Petty Coma Scale Verbal: None (1) Petty Coma Scale Motor: None (1) Time Code Ended Time Code Ended: 14:26 Post Arrest Status: Ventilated Outcome of code: Successful Code Team Present: RONALDO PELAYO RN RT DR BETANCUR ROSC Time of ROSC: 14:25 CASSIUS CUMMINGS Oct 21, 2024 15:26
[2024-10-21] MEDS: LIDOCAINE 2%HCL (LOCAL ANESTH.) INJ 20ML MDV ONE (15:34)
[2024-10-21] MEDS: ANGIOMAX 250 MG VIAL IV ONE (15:34)
[2024-10-21] MEDS: SODIUM CHL 0.9% 50 ML ONE (15:34)
[2024-10-21 15:36] LABS: Hematocrit 62.1 % (41.0-53.0)
[2024-10-21] MEDS: VERAPAMIL 2.5MG/ML INJ 2ML VIAL IV ONE ×2 (15:37→16:05)
[2024-10-21 15:44] LABS: LDL Cholesterol 41 mg/dL (< 100)
[2024-10-21 15:45] LABS: Cholesterol 102 mg/dL (< 200)
[2024-10-21] MEDS ORDERED: MORPHINE SULFATE INJ 2 MG/ml SYRG IV PRN (15:45)
[2024-10-21] MEDS ORDERED: NITROGLYCERIN 0.4 MG SL TAB SL PRN (15:45)
--- NOTE | 2024-10-21 15:45 | DVHHP2 ---
History of Present Illness Reason for Visit: Cardiac arrest History of Present Illness The patient is a 54-year-old male with past medical history of emphysema, COPD, UT, and hypertension who presented to [facility] ED for evaluation of cardiac arrest. Family member reports patient was complaining of chest pain this morning before he went to work, not feeling good. 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 Initial CPR started and connected AED that administered one shock. When EMS arrived on scene, hooking machine operator showed PEA, 1 opportunity, and afterwards only asystole. Patient was administer 4 epinephrine and intubated with laryngeal mask. On arrival to the ED hooking machine operator evidence asystole, when epinephrine, two bicarbonate in one calcium was administered, obtaining ROSC after two rounds of CPR. Patient was intubated with the endotracheal tube 8. Patient was seen and evaluated in the ED, laboratory data shows WBC 11.7, hemoglobin 19.7, hematocrit 61.8, platelets 02326, sodium 138, potassium 3.7, BUN 8, creatinine 1.30, glucose 233, lactic acid 9.2 trending down to 2.2, lipase 52, AST 66, ALT 53, troponin to 291, blood pressure 90/63, heart rate 127 trending down to 94, temperature 97.9 F, O2 saturation 93% on ventilator. Urinalysis positive for urinary tract infection. CT of the chest/abdomen/pelvis shows no evidence of pulmonary arterial filling defect to suggest pulmonary embolism, no acute process in the abdomen and pelvis; moderate upper lobe predominant emphysematous changes in the lungs, there is scarring versus atelectasis in the bilateral lung bases. Patient was started on IV antibiotic regimen Rocephin, please see medication orders section in the computer. Cardiology will follow the patient, angiogram scheduled for today. On my assessment, patient is fully intubated, no diaphoresis, no diarrhea, no vomiting, no fever, no chills. Patient was admitted for further evaluation and medical management. Past Medical History COPD, DM, Emphysema (40 pack-year history of smoking). UT, hypertension As reported by family member Past Surgical History Stent placement x2 Family History Reviewed, noncontributory to the management of this case. Past Social History Patient lives at home, quit smoking cigarettes 2 months ago, Ethanol abuse (drinks Tequila most days, son cannot quantify), no illicit drugs abuse on file. Review of Systems Constitutional: Yes: Weakness; No: Fever, Chills, Sweats, Malaise, Other Eyes: No: Pain, Vision change, Conjunctivae inflammation, Eyelid inflammation, Other, Redness ENT: No: Ear pain, Ear discharge, Nose pain, Nose discharge, Nose congestion, Mouth pain, Mouth swelling, Throat pain, Throat swelling, Other Respiratory: Shortness of breath; No: Cough, Dry, SOB with excertion, Wheezing, Hemoptysis, Pleuritic Pain, Sputum, Wheezing, Other Cardiovascular: Chest Pain, Other (Cardiac arrest); No: Palpitations, Orthopne a, Paroxysmal Noc. Dyspnea, Edema, Lt Headedness Gastrointestinal: No: Nausea, Vomiting, Abdominal Pain, Diarrhea, Constipation, Melena, Hematochezia, Other Genitourinary: No Dysuria, No Frequency, No Incontinence, No Hematuria, No Retention, No Other Musculoskeletal: No: other, neck pain, shoulder pain, arm pain, back pain, hand pain, leg pain, foot pain Skin: No: Rash, Lesions, Jaundice, Bruising, Other Neurological: Weakness, Other (Altered level of consciousness); No: Numbness, Incoordination, Change in speech, Confusion, Seizures Allergies: Coded Allergies: NO KNOWN ALLERGIES (Unverified , 02/01/24) Medications Current Medications Medications Dose Ordered Sig/Abundio Route Start Time Stop Time Status Last Admin Dose Admin Propofol 100 ml @ 2.4 mls/hr Q24H IV 10/21/24 10:45 Norepinephrine Bitartrate 250 ml @ 3.75 mls/hr Q24H IV 10/21/24 11:00 Midazolam HCl 50 ml @ 1 mls/hr Q24H IV 10/21/24 11:00 Fentanyl Citrate 250 ml @ 2.5 mls/hr Q24H IV 10/21/24 11:00 Sodium Chloride 1,000 ml @ 100 mls/hr Q10H IV 10/21/24 11:30 Ondansetron HCl 4 mg Q4HP PRN IV 10/21/24 14:45 Diagnostic Test (Pha) 1 strip ACHS 10/21/24 17:00 Insulin Human Regular ACHS SC 10/21/24 17:00 Dextrose 50 ml UD PRN IV 10/21/24 14:45 Ceftriaxone Sodium 50 ml @ 100 mls/hr DAILY@09 IV 10/22/24 09:00 Ibuprofen 600 mg Q6HP PRN GT 10/21/24 14:45 Heparin Sodium (Porcine) 5,000 units Q12HR SC 10/21/24 22:00 Heparin Sodium/ Dextrose 250 ml @ 10 mls/hr Q24H IV 10/21/24 15:15 Exam Vital Signs Vital Signs Date Time Temp Pulse Resp B/P (MAP) Pulse Ox O2 Delivery O2 Flow Rate FiO2 10/21/24 15:26 79 79 10/21/24 13:48 21 150/98 (115) 100 50 10/21/24 12:00 97.9 97.9 10/21/24 10:48 Ambu-Bag General Appearance: Other (Fully intubated) HEENT: Atraumatic, EOMI, Mucous membr. moist/pink Respiratory: Normal air movement, Other (On ventilator) Cardiovascular: Regular rate, Normal S1, Normal S2, No murmurs Abdominal: Normal bowel sounds, Soft, No tenderness, No hepatospenomegaly, No masses Extremities: No clubbing, No cyanosis, No edema, Normal pulses, No tenderness/swelling Skin: No rashes, No breakdown, No significant lesion Neuro: Other (Generalized weakness) Psych/Mental Status: Other (Unobtainable) Labs/Xrays Labs Test 10/21/24 14:38 10/21/24 14:31 10/21/24 12:53 10/21/24 12:44 Range/Units White Blood Count 16.8 #H 4.4-10.8 10^3/uL Red Blood Count 6.50 H 4.5-5.90 10^6/uL Hemoglobin 20.1 H 13.5-17.5 g/dL Hematocrit 62.1 H 41.0-53.0 % Mean Corpuscular Volume 95.6 80.0-100.0 fL Mean Corpuscular Hemoglobin 30.9 28.0-32.0 pg Mean Corpuscular Hemoglobin Concent 32.3 32.0-36.0 g/dL Red Cell Distribution Width 14.8 H 11.8-14.3 % Platelet Count 116 L 140-450 10^3/uL Mean Platelet Volume 10.4 6.9-10.8 fL Neutrophils (%) (Auto) 85.5 H 37.0-80.0 % Lymphocytes (%) (Auto) 4.9 L 10.0-50.0 % Monocytes (%) (Auto) 9.2 0.0-12.0 % Eosinophils (%) (Auto) 0.1 0.0-7.0 % Basophils (%) (Auto) 0.3 0.0-2.0 % Neutrophils # (Auto) 14.4 H 1.6-8.6 10 ^3/uL Lymphocytes # (Auto) 0.8 0.4-5.4 10 ^3/uL Monocytes # (Auto) 1.5 H 0-1.3 10 ^3/uL Eosinophils # (Auto) 0 0-0.8 10 ^3/uL Basophils # (Auto) 0 0-0.2 10 ^3/uL Nucleated Red Blood Cells 0.1 % Iron Level 151 65-175 ug/dL Total Iron Binding Capacity 296 250-425 ug/dL Percent Iron Saturation 51.0 20-55 % Troponin I High Sensitivity 462 *H </=54 ng/L Lactic Acid Level 2.2 *H 0.4-2.0 mmol/L Blood Gas Specimen Type Arterial Blood Gas Sample Site Arterial line Blood Gas Patient Temperature 37.0 Arterial Blood Date Drawn [id number] Arterial Blood pH 7.341 L 7.350-7.450 Arterial Blood Partial Pressure CO2 43.4 35.0-48.0 mmHg Arterial Blood Partial Pressure O2 102.5 83.0-108.0 mmHg Arterial Blood HCO3 22.9 21.0-28.0 mmol/L Elvin Test N/a Blood Gas Total Hemoglobin > 21.00 *H 13.5-17.5 g/dL Blood Gas Set Respiration Rate 24.0 Blood Gas Modality Vent - ac FiO2 % 70.0 Blood Gas Tidal Volume 500.0 Blood Gas PEEP or CPAP 5.0 Blood Gas Critical Value Read Back Yes Blood Gas Notified Whom pollo Panda Blood Gas Notified Time [id number] Blood Gas Notified By Household Cook john frank Test 10/21/24 10:25 10/21/24 10:23 Range/Units Urine Color Yellow Yellow Urine Clarity Turbid H Clear Urine pH 6.5 5.0-9.0 Urine Specific Cades 1.016 1.001-1.035 Urine Protein 1+ H Negative Urine Ketones Trace Negative Urine Blood Trace H Negative /uL Urine Nitrite Negative Negative Urine Bilirubin Negative Negative Urine Urobilinogen 2 H Negative mg/dL Urine Leukocyte Esterase 1+ Negative /uL Urine RBC 15 0 - 3 /hpf Urine Microscopic WBC 7 H 0-3 /HPF Urine Squamous Epithelial Cells None seen <5 /hpf Urine Bacteria None seen None Seen /hpf Urine Mucus Few None Seen Urine Glucose Normal Normal mg/dL Urine Opiates Screen Neg NEGATIVE Urine Fentanyl Screen Neg NEGATIVE Urine Barbiturates Screen Neg NEGATIVE Urine Phencyclidine Screen Neg NEGATIVE Urine Amphetamines Screen Neg NEGATIVE Urine Benzodiazepines Screen Neg NEGATIVE Urine Cocaine Screen Neg NEGATIVE Urine Cannabinoids Screen Pos NEGATIVE Sodium Level 138 136-145 mmol/L Potassium Level 3.7 3.5-5.1 mmol/L Chloride Level 97 L 98-107 mmol/L Carbon Dioxide Level 22 20-31 mmol/L Anion Gap 19 H 5-15 Blood Urea Nitrogen 8 L 9-23 mg/dL Creatinine 1.30 0.700-1.30 mg/dL Glomerular Filtration Rate Calc 65 >90 mL/min BUN/Creatinine Ratio 6.2 L 10.0-20.0 Serum Glucose 233 H 74-106 mg/dL Calcium Level 10.2 8.7-10.4 mg/dL Total Bilirubin 0.6 0.2-1.0 mg/dL Aspartate Amino Transferase (AST) 66 H 13-40 U/L Alanine Aminotransferase (ALT) 53 H 7-40 U/L Alkaline Phosphatase 101 46-116 U/L B-Type Natriuretic Peptide 93.92 0-100 pg/mL Total Protein 6.4 5.7-8.2 g/dL Albumin 3.9 3.2-4.8 g/dL Lipase 52 12-53 U/L PATIENT: DEBBIE SANTORO ACCT: [id number] UNIT: [id number] : 1970 LOC: ER ROOM / BED: / AGE / SEX: 54 / M ADM STATUS: REG ER SERVICE [id number] ORDERING PHYSICIAN: MOUNIKA BETANCUR MD PROCEDURE(s): CAPIV - CT CHEST/AB/PL W CON- IV ONLY REASON: cardiac arrest, please do PE study and angio of abdomen ORDER NUMBER(s): [id number], ACCESSION NUMBER(s): [id number] CTA CHEST and CT ABDOMEN AND PELVIS CLINICAL HISTORY: cardiac arrest, please do PE study and angio of abdomen TECHNIQUE: Multiple contiguous axial images of the chest, abdomen and pelvis with intravenous contrast. The images were reformatted degenerate coronal and sagittal reconstructions. 100 cc of Omnipaque 300 contrast was injected intravenously. All CT scans at this medical facility are performed using dose modulation techniques as appropriate to a performed exam including the following:Automated exposure control was utilized; adjustment of the MA and/or KV according to patient size; and use of iterative reconstruction technique. Radiation Dose Information: CT Dose: CTDI volume is 15 mGy. Dose-length product is 05/06/2073 mGy*cm FINDINGS: There is no evidence of a pulmonary arterial filling defect to suggest pulmonary embolism. The main pulmonary artery appears normal in size. The thoracic aorta demonstrates normal caliber. The heart size is within normal limits. There is no pericardial effusion. There are moderate upper lobe predominant emphysematous changes in the lungs. There is curvilinear scarring versus atelectasis in the bilateral posterior lung bases. There is no focal lung consolidation. There is no pleural effusion or pneumothorax. There is no evidence of mediastinal mass or lymphadenopathy. There is no axillary lymphadenopathy. An endotracheal tube terminates above the joy. Ther e is an NG tube in the esophagus terminating in the stomach. The liver, gallbladder, pancreas, kidneys, adrenal glands, and spleen appear within normal limits. There is no evidence of abdominal lymphadenopathy. There is no free fluid or free air. The stomach grossly appears unremarkable.The small and large bowel loops demonstrate normal caliber and appear within normal limits. Air intermixed with stool is seen throughout the colon. There are calcified atherosclerotic changes in the abdominal aorta. The IVC appears within normal limits. There is a Smith catheter in the bladder which is poorly filled. There is small amount of air in the bladder. Pelvic organ appears within normal limits. There is no evidence of a pelvic mass or lymphadenopathy. There is no free fluid collection. There is a central venous catheter in the right common femoral vein. There is no acute osseous abnormality. IMPRESSION: 1. There is no evidence of a pulmonary arterial filling defect to suggest pulmonary embolism. 2. Moderate upper lobe predominant emphysematous changes in the lungs. There is scarring versus atelectasis in the bilateral lung bases. 3. There is no acute process in the abdomen and pelvis. ORDERING PHYSICIAN: MOUNIKA BETANCUR MD PROCEDURE(s): HWOCT - HEAD WITHOUT CONTRAST REASON: cardiac arrest ORDER NUMBER(s): [id number], ACCESSION NUMBER(s): [id number] EXAM: CT HEAD WITHOUT CONTRAST HISTORY: cardiac arrest COMPARISON: None TECHNIQUE: Axial images of the head were obtained and reformatted in coronal and sagittal planes. All CT scans at this medical facility are performed using dose modulation techniques as appropriate to a performed exam including the following: Automated exposure control was utilized; adjustment of the MA and/or KV according to patient size; and use of iterative reconstruction technique. CT Dose: CTDI volume is 66 mGy. Dose-length product is 1180 mGy*cm FINDINGS: There is no evidence of acute intracranial hemorrhage, mass, mass effect midline shift. There is no hydrocephalus or extra-axial fluid collection. Li-white matter differentiation is maintained. There is intravascular contrast noted. There is patchy mucosal thickening in the ethmoid and sphenoid sinuses. The mastoid air cells are clear. The calvarium is intact. IMPRESSION: 1. No acute intracranial process. ORDERING PHYSICIAN: MOUNIKA BETANCUR MD PROCEDURE(s): CXR1 - CHEST XRAY 1 VIEW REASON: OG and ET tube placement ORDER NUMBER(s): [id number], ACCESSION NUMBER(s): [id number] EXAM: XY CHEST XRAY 1 VIEW HISTORY: OG and ET tube placement COMPARISON: None TECHNIQUE: Portable AP views of the chest were performed. FINDINGS: Endotracheal tube is identified with its tip 7.5 cm above the joy. OG tube is identified with its tip at least 11 cm distal to the GE junction. Probable emphysematous changes of the upper lobes. There is mild interstitial prominence centrally and in the lung bases. Probable left lung base scarring. No pneumothorax. The heart is borderline enlarged. There are postoperative changes of ACDF. IMPRESSION: 1. Endotracheal and OG tubes as above. The endotracheal tube could be advanced 3 cm followed by repeat chest x-ray. 2. Interstitial prominence centrally and in the lung bases which may be due to reactive airways disease or mild CHF. Assessment/Plan Assessment/Plan Cardiac arrest Hyperglycemia Urinary tract infection Elevated troponin Leukocytosis, unspecified Thrombocytopenia Generalized weakness Polycythemia vera Elevated lactic acid level Plan 1. Admit to intensive care unit 2. Breathing treatment 3. Pain control management 4. IV antibiotic management 5. Management of fluids and electrolytes 6. Consultation for cardiology/pulmonology 7. Diagnostic test CT of the chest/abdomen/pelvis 8. DVT prophylaxis on heparin 9. Repeat labs CBC, CMP in a.m. 10. Home medication reviewed and reconciled 11. Continue with current medical management 12. Treatment plan discussed with patient and RN. Patient is fully intubated. Plan discussed with: Patient, Son, Other (RN) My Orders Orders - SLIM CASTANON DNP Procedure Category Date Status Time * Cardiology Consult CONS 10/21/24 Transmitted 14:31 Allergies ANGEL 10/21/24 In Process 14:31 Code Status CODE 10/21/24 Transmitted 14:31 Oxygen Per Hour RT 10/21/24 Transmitted 14:31 Ondansetron Hcl PHA 10/21/24 In Process (Zofran) 14:45 Fall Risk Precautions ANGEL 10/21/[address] 14:31 Complete Blood Count LAB 10/22/24 Verified 04:00 Comprehensive LAB 10/22/24 Verified Metabolic Panel 04:00 Npo (Nothing By DIET 10/21/24 Transmitted Mouth) Diet Dinner Condition: Critical ANGEL 10/21/24 In Process 14:31 Sequential ANGEL 10/21/24 In Process Compression Device Glucose Blood PHA 10/21/24 In Process (Accu-Chek Comfort 17:00 Insulin R (Human) PHA 10/21/24 In Process (Insulin R) 17:00 Dextrose 50% Syringe PHA 10/21/24 In Process 14:45 Ceftriaxone 1gm/50ml PHA 10/22/24 In Process D5w (Rocephin) 09:00 Ibuprofen 100mg/5 Ml PHA 10/21/24 In Process Oral Susp (Motrin 1 14:45 Heparin Sodium PHA 10/21/24 In Process (Porcine) 22:00 Admit ADMIT 10/21/24 Transmitted 15:41 Nitroglycerin PHA 10/21/24 Transmitted Sublingual (Ntrostat 15:45 Morphine Sulfate PHA 10/21/24 Transmitted Injection 15:45 Notify Of Changes ANGEL 10/21/24 Transmitted From Base 15:41 [place] Regulator For ANGEL 10/21/24 Transmitted 24 Hours 15:41 Emergency Dysrhythmia ANGEL 10/21/24 Transmitted Protocol 15:41 Rhythm Strips Once ANGEL 10/21/24 Transmitted Every Shift 15:41 Oxygen By Nasal RT 10/21/24 Transmitted Cannula 15:41 Problem List: (1) Cardiac arrest (2) Urinary tract infection (3) Polycythemia vera (4) Elevated lactic acid level (5) Generalized weakness (6) Elevated troponin (7) Hyperglycemia (8) Leukocytosis, unspecified (9) Thrombocytopenia Date of Service: Oct 21, 2024 Billing Provider: SLIM CASTANON DNP Common Visit Codes: 99972-[id number] INP/OBS CARE (HIGH) SLIM CASTANON DNP Oct 21, 2024 15:45
[2024-10-21] MEDS: HEPARIN SODIUM (PORCINE) 5000 UNITS/ML 1ML VIAL ONE (15:46)
[2024-10-21 15:56] LABS: HDL Cholesterol 36 mg/dL (40-59); Triglycerides 163 mg/dL (< 150)
[2024-10-21] MEDS: TICAGRELOR 90 MG TAB ONE (16:39)
[2024-10-21] MEDS: ASPirin 325 MG TAB ONE (16:40)
[2024-10-21] MEDS ORDERED: SODIUM BICARB 8.4% 50Meq/50ml SYR INJ IV ONE (16:49)
[2024-10-21] MEDS: InsuLIN REG 1unit/0.01ml Soln (100units/ml) SC SCH (17:19)
[2024-10-21] MEDS: ACCU-CHEK COMFORT CURVE STRIP VI SCH (17:19)
[2024-10-21] MEDS ORDERED: CALCIUM CHLOR(10%) 100MG/ML 10ML SYRINGE IV ONE (17:24)
[2024-10-21] MEDS: cefTRIAXone 1GM/50ML D5W 50 ML IV ONE (17:27)
--- NOTE | 2024-10-21 17:34 | DVHOP2 ---
Operative Report - 2 Report Details Date: 10/21/24 Preop Diagnosis: Sudden syndrome Postop Diagnosis: . CAD. Severe cardiomyopathy Surgeon: Indio Davis MD Anesthesiologist: Patient on ventilator. Conscious sedation and propofol infusion Anesthesia: General Consent: The patient was informed of the risks and benefits of the procedure. These include but are not limited to complications of anesthesia, postoperative infection, incomplete relief of symptoms, recurrence of symptoms, damage to blood vessels, nerves and tendons, deep venous thrombosis, pulmonary embolism a nd possible need for repeat surgery in the future. Complications: No complications Estimated Blood Loss: 10 cc Findings: CAD. Cardiomyopathy. Indications for Surgery: Acute cardiac arrest Name of Procedure Performed Bilateral cine coronary angiography. Left ventriculography. PTCA and stenting of the circumflex coronary artery. Procedure Details Procedure Details: Prior local anesthesia with 2% lidocaine to the right wrist and full informed consent obtained patient was prepped and draped in usual fashion followed by placement of a six [place] sheath into the radial artery through which a 3.5 EBU guiding catheter was used for ventriculography and cannulation of both right and left coronary ostium as well as angioplasty of the Circumflex coronary artery. Hemodynamics: Aortic blood pressure was 90/50 MmHg. with an end-diastolic of 7 mmHg. There was no gradient across the aortic valve on pullback. Coronary anatomy: RCA is a Medium vessel it is normal in its proximal mid and distal segments PDA and posterolateral branches are normal. Left main is large and normal. Left anterior descending coronary artery is a large vessel it is normal in its proximal mid and distal segments. It has sluggish flow throughout. Noted endothelial dysfunction. Septals are free of significant disease. The 2nd diagonal has a 60-70% ostial lesion. It does not appear to be flow limiting. The circumflex is a large vessel it is normal in its proximal and mid section. The 1st obtuse marginal branch distally has a long tubular 80-90% stenosis. Prior to that there is a stent without in stent restenosis. Ventriculography performed in the DOE projection shows severe global hypokinesis with an EF of 25-30% at best. Angioplasty was performed for which a Specter wire was placed across the area of stenosis in the circumflex and a two 5 x 20 mm balloon was used to pre dilate followed by a 3-0 by 26 mm sabine Medtronic drug-eluting stent was used. This was inflated distally at approximately nine atmospheres. Proximally we post dilated with 14 atmospheres. There was excellent antegrade flow without thrombus formation and/ or dissection. Impression: Normal left ventricular end-diastolic pressure at rest with markedly decreased left ventricular ejection fraction and a dilated left ventricle. Significant CAD involving the circumflex with a de Ene lesion in the circumflex marginal distal to the previously stented segment. Recommendations: Dual antiplatelet therapy. Risk factor modification to continue. Guarded prognosis. Condition Critical Disposition Still a Patient Date of Service: Oct 21, 2024 Billing Provider: INDIO DAVIS Sr., MD Cardiology Common Codes: [id number] INP/OBS CARE (High) Cardiology Procedure Codes: 24253-[id number] VESSEL W/I VASC FAM, 95075 -PTCA W/STENT PLACEMENT, 21281-WQFN FOR STEMI W/STENT INDIO DAVIS Sr., MD Oct 21, 2024 17:34
[2024-10-21] MEDS: SODIUM CHLORIDE 0.9% 500 ML IV ONE (17:45)
[2024-10-21] MEDS: SODIUM CHLORIDE 0.9% 1,000 ML IV SCH (17:48)
[2024-10-21] MEDS: OCTREOTIDE ACETATE 100 MCG in SODIUM CHL 0.9% 50 ML IV ONE (17:53)
[2024-10-21] MEDS: OCTREOTIDE ACETATE 500 MCG in SODIUM CHL 0.9% 99 ML IV SCH (18:04)
[2024-10-21 18:37] LABS: Hematocrit 65.8 % (41.0-53.0)
--- NOTE | 2024-10-21 18:38 | DVHSR ---
APPROVED REPORT EXAM: Two-dimensional and M-mode echocardiogram with Doppler and color Doppler. Blood Pressure: 90/63 mmHg INDICATION Post cardiac arrest s/p ROSC RISK FACTORS Height: 6'0", Weight: 176 DIMENSIONS LVDd5.7 (3.8-5.7cm)LA (2D) (1.9-4.0cm)Aortic Root3.6 (2.0-3.7cm) LVDs5.3 (2.5-4.0cm)LA (MM) (1.9-4.0cm)Aortic Cusp Exc1.9 (1.5-2.0cm) EF (%) 20.0 (55-70%)Rt. Atrium (1.9-4.0cm)Asc. Aorta cm IVSd1.1 (0.7-1.1cm)RV (D) (1.8-2.4cm) PWd0.9 (0.7-1.1cm) Mitral Valve MitralMitral Stenosis E wave0.83m/sMV Mean GR.mmHg E/A ratio0.02D MVAcm2 Aortic Valve Aortic ValveAortic Stenosis V10.69m/Neal Mean GR.2mmHg V21.07m/Neal Peak GR.5mmHg LVOT Diameter2.2 (1.8-2.4cm)Doppler AVA2.45cm2 Pulmonic Valve V20.76m/s Tricuspid Valve TR Velocity2.55m/s [id number] Other Information Technically limited study due to body habitus, patient lying flat and on vent. Conclusion Technically good study. Sinus rhythm. Left ventricular enlargement. Left atrial enlargement. Valves appear to be structurally normal. Left ventricular function is markedly diminished. EF is around 20-25% at best with severe global hyp okinesis especially of the inferior and lateral nicholson. Dopplers unremarkable. No pericardial effusion masses or vegetations discernible.
[2024-10-21 18:39] LABS: Hemoglobin 21.4 g/dL (13.5-17.5)
[2024-10-21] MEDS: AMIODARONE 360mg/200mL PREMIX 200 ML IV SCH (19:11)
[2024-10-21 19:46] LABS: INR 2.41 (0.9-1.15); Prothrombin Time 23.4 sec (9.3-11.8)
[2024-10-21 19:47] LABS: Partial Thromboplastin Time 68.4 SEC (24.5-34.5)
--- NOTE | 2024-10-21 19:57 | DVHINCON2 ---
Date of service: Oct 21, 2024 Referring Physician Darya kramer Reason for Consultation Rectal bleeding History of Present Illness This is a 54-year-old man who presented to the emergency room via EMS as a secure code blue secondary to cardiopulmonary arrest. The patient was found unresponsive by coworkers at an imaging center with CPR initiated and AED shocks x 2 delivered prior to EMS arrival. ACLS protocol was implemented by EMS including 4 rounds of Epinephrine. ROSC was subsequently achieved with the patient being emergently endotracheally intubated upon arrival to the Emergency Room. During admission the patient transitioned from a sinus rhythm to sustained pulseless ventricular tachycardia undergoing defibrillation at 200 J with successful ROSC. Pt had ischemia present to anteroseptal and inferior wall. Post 2nd cardiac arrest 12 lead electrocardiogram revealed global ischemia mostly to inferior wall. Troponin levels are trending up with latest in the 200s ng/L. Per , the patient complaint of SOB, chest discomfort, and poor appetite yesterday. Pt underwent urgent cardiac catheterization with angioplasty and stent placement EF 25 % GI was consulted due to moderate diarrhoea requiring rectal tube followed by rectal bleeding. Nurse reports a small amount of bleeding which mostly appears old. Hb is stable at 21 ! 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 Allergies: Coded Allergies: NO KNOWN ALLERGIES (Unverified , 02/01/24) Home Meds Active Scripts Acetaminophen W/ Codeine (Tylenol W/Cod #3) 1 Tab Tb, 1 TAB PO Q4HP PRN for 10 Days, #50 TAB Prov:KAR DOS SANTOS DIRECTOR OCCUPATIONAL 02/06/24 Reported Medications Lisinopril (Lisinopril) 40 Mg Tab, 40 MG PO DAILY, TAB 02/01/24 Aspirin (Aspir-81) 81 Mg Tab, 81 MG PO DAILY, TAB 02/01/24 Rosuvastatin Calcium (Crestor) 5 Mg Tab, 5 MG PO QPM, TAB 02/01/24 Carvedilol (Carvedilol) 3.125 Mg Tab, 3.125 MG PO BID, TAB 02/01/24 Current Medications Current Medications Medications (Trade) Dose Ordered Sig/Abundio Route PRN Reason Start Time Stop Time Status Last Admin Norepinephrine Bitartrate 250 ml @ 3.75 mls/hr Q24H IV 10/21/24 10:30 10/21/24 10:32 DC Propofol 100 ml @ 2.4 mls/hr Q24H IV 10/21/24 10:45 10/21/24 10:40 Norepinephrine Bitartrate 250 ml @ 3.75 mls/hr Q24H IV 10/21/24 11:00 10/21/24 17:01 DC 10/21/24 10:19 Midazolam HCl 50 ml @ 1 mls/hr Q24H IV 10/21/24 11:00 10/21/24 19:35 Fentanyl Citrate 250 ml @ 2.5 mls/hr Q24H IV 10/21/24 11:00 10/21/24 11:00 Sodium Chloride 1,000 ml @ 100 mls/hr Q10H IV 10/21/24 11:30 10/21/24 17:48 Ondansetron HCl (Zofran) 4 mg Q4HP PRN IV NAUSEA / VOMITING 10/21/24 14:45 Diagnostic Test (Pha) (Accu-Chek Comfort Curve T) 1 strip ACHS 10/21/24 17:00 10/21/24 17:19 Insulin Human Regular (InsuLIN R) ACHS SC 10/21/24 17:00 10/21/24 17:19 Dextrose 50 ml UD PRN IV Blood Sugar LESS THAN 60 10/21/24 14:45 Ceftriaxone Sodium 50 ml @ 100 mls/hr DAILY@09 IV 10/22/24 09:00 Ibuprofen (MOTRIN 100MG/5 mL ORAL SUSP) 600 mg Q6HP PRN GT TEMP GREATER THAN 100.4 10/21/24 14:45 10/21/24 17:52 DC Heparin Sodium (Porcine) 5,000 units Q12HR SC 10/21/24 22:00 10/21/24 17:52 DC Heparin Sodium/ Dextrose 250 ml @ 10 mls/hr Q24H IV 10/21/24 15:15 10/21/24 17:01 DC Nitroglycerin (Ntrostat Sublingual) 0.4 mg Q5MINP PRN SL FOR CHEST PAIN 10/21/24 15:45 Morphine Sulfate 2 mg Q30M PRN IV FOR CHEST PAIN 10/21/24 15:45 Aspirin 81 mg DAILY PO 10/22/24 10:00 Ticagrelor (Brilinta) 90 mg BID PO 10/21/24 22:00 Octreotide Acetate 500 mcg/ Sodium Chloride 100 ml @ 10 mls/hr Q10H IV 10/21/24 17:00 10/21/24 18:04 Norepinephrine Bitartrate 32 mg/ Sodium Chloride 250 ml @ 0.938 mls/ hr Q24H IV 10/21/24 17:00 Vasopressin 20 units/Sodium Chloride 100 ml @ 9 mls/hr Q11H7M IV 10/21/24 17:00 Vital Signs Vital Signs Date Time Temp Pulse Resp B/P (MAP) Pulse Ox O2 Delivery O2 Flow Rate FiO2 10/21/24 19:35 128/93 10/21/24 18:22 70 24 100 10/21/24 17:07 97.6 97.6 10/21/24 15:49 50 10/21/24 10:48 Ambu-Bag Physical Exam General Appearance: Other (Fully intubated);sedated in quality lab technician ic Cardiovascular: Regular rate, Normal S1, Normal S2, No murmurs Abdominal: Normal bowel sounds, Soft, No tenderness, No hepatospenomegaly, No masses Extremities: No clubbing, No cyanosis, No edema, Normal pulses, No tenderness/swelling Rectal tube in place Labs/Diagnostic Data Labs Test 10/21/24 17:54 10/21/24 17:13 10/21/24 14:38 10/21/24 14:31 Range/Units Hemoglobin 21.4 *H 13.5-17.5 g/dL Hematocrit 65.8 H 41.0-53.0 % Fibrinogen 357 177-375 mg/dL Troponin I High Sensitivity 951 *H </=54 ng/L POC Glucose 142 H 70-106 mg/dl White Blood Count 16.8 #H 4.4-10.8 10^3/uL Red Blood Count 6.50 H 4.5-5.90 10^6/uL Mean Corpuscular Volume 95.6 80.0-100.0 fL Mean Corpuscular Hemoglobin 30.9 28.0-32.0 pg Mean Corpuscular Hemoglobin Concent 32.3 32.0-36.0 g/dL Red Cell Distribution Width 14.8 H 11.8-14.3 % Platelet Count 116 L 140-450 10^3/uL Mean Platelet Volume 10.4 6.9-10.8 fL Neutrophils (%) (Auto) 85.5 H 37.0-80.0 % Lymphocytes (%) (Auto) 4.9 L 10.0-50.0 % Monocytes (%) (Auto) 9.2 0.0-12.0 % Eosinophils (%) (Auto) 0.1 0.0-7.0 % Basophils (%) (Auto) 0.3 0.0-2.0 % Neutrophils # (Auto) 14.4 H 1.6-8.6 10 ^3/uL Lymphocytes # (Auto) 0.8 0.4-5.4 10 ^3/uL Monocytes # (Auto) 1.5 H 0-1.3 10 ^3/uL Eosinophils # (Auto) 0 0-0.8 10 ^3/uL Basophils # (Auto) 0 0-0.2 10 ^3/uL Nucleated Red Blood Cells 0.1 % Iron Level 151 65-175 ug/dL Total Iron Binding Capacity 296 250-425 ug/dL Percent Iron Saturation 51.0 20-55 % Triglycerides Level 163 H < 150 mg/dL Cholesterol Level 102 < 200 mg/dL LDL Cholesterol 41 < 100 mg/dL HDL Cholesterol 36 L 40-59 mg/dL Folic Acid 18.22 >5.38 ng/mL Thyroid Stimulating Hormone (TSH) 0.85 0.55-4.78 uIU/mL Test 10/21/24 12:53 10/21/24 12:44 10/21/24 10:25 10/21/24 10:23 Range/Units Lactic Acid Level 2.2 *H 0.4-2.0 mmol/L Blood Gas Specimen Type Arterial Blood Gas Sample Site Arterial line Blood Gas Patient Temperature 37.0 Arterial Blood Date Drawn [id number] Arterial Blood pH 7.341 L 7.350-7.450 Arterial Blood Partial Pressure CO2 43.4 35.0-48.0 mmHg Arterial Blood Partial Pressure O2 102.5 83.0-108.0 mmHg Arterial Blood HCO3 22.9 21.0-28.0 mmol/L Elvin Test N/a Blood Gas Total Hemoglobin > 21.00 *H 13.5-17.5 g/dL Blood Gas Set Respiration Rate 24.0 Blood Gas Modality Vent - ac FiO2 % 70.0 Blood Gas Tidal Volume 500.0 Blood Gas PEEP or CPAP 5.0 Blood Gas Critical Value Read Back Yes Blood Gas Notified Whom pollo Panda Blood Gas Notified Time [id number] Blood Gas Notified By Director Prospect john frank Urine Color Yellow Yellow Urine Clarity Turbid H Clear Urine pH 6.5 5.0-9.0 Urine Specific [place] 1.016 1.001-1.035 Urine Protein 1+ H Negative Urine Ketones Trace Negative Urine Blood Trace H Negative /uL Urine Nitrite Negative Negative Urine Bilirubin Negative Negative Urine Urobilinogen 2 H Negative mg/dL Urine Leukocyte Esterase 1+ Negative /uL Urine RBC 15 0 - 3 /hpf Urine Microscopic WBC 7 H 0-3 /HPF Urine Squamous Epithelial Cells None seen <5 /hpf Urine Bacteria None seen None Seen /hpf Urine Mucus Few None Seen Urine Glucose Normal Normal mg/dL Urine Opiates Screen Neg NEGATIVE Urine Fentanyl Screen Neg NEGATIVE Urine Barbiturates Screen Neg NEGATIVE Urine Phencyclidine Screen Neg NEGATIVE Urine Amphetamines Screen Neg NEGATIVE Urine Benzodiazepines Screen Neg NEGATIVE Urine Cocaine Screen Neg NEGATIVE Urine Cannabinoids Screen Pos NEGATIVE Sodium Level 138 136-145 mmol/L Potassium Level 3.7 3.5-5.1 mmol/L Chloride Level 97 L 98-107 mmol/L Carbon Dioxide Level 22 20-31 mmol/L Anion Gap 19 H 5-15 Blood Urea Nitrogen 8 L 9-23 mg/dL Creatinine 1.30 0.700-1.30 mg/dL Glomerular Filtration Rate Calc 65 >90 mL/min BUN/Creatinine Ratio 6.2 L 10.0-20.0 Serum Glucose 233 H 74-106 mg/dL Calcium Level 10.2 8.7-10.4 mg/dL Total Bilirubin 0.6 0.2-1.0 mg/dL Aspartate Amino Transferase (AST) 66 H 13-40 U/L Alanine Aminotransferase (ALT) 53 H 7-40 U/L Alkaline Phosphatase 101 46-116 U/L B-Type Natriuretic Peptide 93.92 0-100 pg/mL Total Protein 6.4 5.7-8.2 g/dL Albumin 3.9 3.2-4.8 g/dL Lipase 52 12-53 U/L CT CHEST ABD PELVIS IMPRESSION: 1. There is no evidence of a pulmonary arterial filling defect to suggest pulmonary embolism. 2. Moderate upper lobe predominant emphysematous changes in the lungs. There is scarring versus atelectasis in the bilateral lung bases. 3. There is no acute process in the abdomen and pelvis. Problems(with codes): (1) Rectal bleeding (2) Cardiomyopathy (3) CAD (coronary artery disease) (4) Thrombocytopenia (5) Elevated lactic acid level (6) Elevated troponin (7) Leukocytosis, unspecified (8) Generalized weakness (9) Polycythemia vera (10) Urinary tract infection (11) Cardiac arrest Plan/Recommendation Plan At this point in time the patient's bleeding is of small amount and is H&H is stable Continue conservative management and monitoring of his lab tests Patient is in a critical condition and not stable for any endoscopic workup IV Protonix 40 mg daily Patient is currently on Brilinta and aspirin Overall his prognosis is guarded We will review history with his if he has had a previous colonoscopy Plan discussed with: Other (ICU Nurse Heidi) TON YORK MD Oct 21, 2024 19:57
[2024-10-21] MEDS ORDERED: HEPARIN SODIUM (PORCINE) 5000 UNITS/ML 1ML VIAL SC SCH (22:00)
[2024-10-21 22:12] LABS: Hematocrit 61.5 % (41.0-53.0); Hemoglobin 20.2 g/dL (13.5-17.5)
[2024-10-21 22:29] LABS: INR 1.33 (0.9-1.15); Partial Thromboplastin Time 30.8 SEC (24.5-34.5); Prothrombin Time 13.7 sec (9.3-11.8)
[2024-10-21] MEDS: TICAGRELOR 90 MG TAB PO SCH (23:00)
[2024-10-21] MEDS: NOREPINEPHRINE BITARTRATE 32 MG in SODIUM CHL 0.9% 218 ML IV SCH (23:30)
[2024-10-22] VITALS (109 sets, daily range): BP systolic 88–136; BP diastolic 56–88; PULSE 64–101; RESP 17–32; TEMP 97.4–100; O2SAT 93–100
[2024-10-22] MEDS: VASOPRESSIN 20 UNITS in SODIUM CHL 0.9% 99 ML IV SCH (01:48)
[2024-10-22 03:52] LABS: Eosinophils # (auto) 0 10 ^3/uL (0-0.8); Hemoglobin 19.3 g/dL (13.5-17.5); Lymphocytes # (auto) 0.7 10 ^3/uL (0.4-5.4); Red Cell Distribution Width 15.1 % (11.8-14.3)
[2024-10-22 03:59] LABS: Basophils # (auto) 0.2 10 ^3/uL (0-0.2); Basophils % (auto) 1.1 % (0.0-2.0); Eosinophils % (auto) 0.2 % (0.0-7.0); Lymphocytes % (auto) 3.6 % (10.0-50.0); Mean Corpuscular Hemoglobin 31.4 pg (28.0-32.0); Mean Corpuscular Hgb Conc. 32.9 g/dL (32.0-36.0); Mean Corpuscular Volume 95.5 fL (80.0-100.0); Monocytes % (auto) 5.4 % (0.0-12.0); Neutrophils # (auto) 16.3 10 ^3/uL (1.6-8.6); Neutrophils % (auto) 89.7 % (37.0-80.0); Platelet Count (auto) 110 10^3/uL (140-450); Red Blood Cells 6.14 10^6/uL (4.5-5.90); White Blood Cell 18.1 10^3/uL (4.4-10.8)
[2024-10-22 04:08] LABS: Albumin 3.2 g/dL (3.2-4.8); Alkaline Phosphatase 69 U/L (46-116); Anion Gap 14 (5-15); BUN/Creatinine Ratio 8.7 (10.0-20.0); Bilirubin, Total 0.6 mg/dL (0.2-1.0); Blood Urea Nitrogen 10 mg/dL (9-23); Chloride 106 mmol/L (98-107); Potassium 4.9 mmol/L (3.5-5.1); Sodium 139 mmol/L (136-145); Total Protein 5.7 g/dL (5.7-8.2)
[2024-10-22 04:21] LABS: Hematocrit 58.6 % (41.0-53.0)
[2024-10-22] MEDS: OCTREOTIDE ACETATE 100 MCG/ML VL ONE (04:29)
[2024-10-22 04:38] LABS: Alanine Aminotransferase 43 U/L (7-40); Aspartate Aminotransferase 70 U/L (13-40); Calcium 8.5 mg/dL (8.7-10.4); Carbon Dioxide 19 mmol/L (20-31); Glucose 124 mg/dL (74-106)
--- NOTE | 2024-10-22 06:22 | DVH ---
EXAM: XR Chest, 1 View CLINICAL INDICATION: intubated TECHNIQUE: Frontal view of the chest. COMPARISON: None FINDINGS: LUNGS AND PLEURAL SPACES: Bibasilar atelectasis or pneumonia. No pneumothorax. HEART: Unremarkable. No cardiomegaly. MEDIASTINUM: Unremarkable. Normal mediastinal contour. BONES/JOINTS: Unremarkable. No acute fracture. TUBES, LINES AND DEVICES: The endotracheal tube (ETT) is in satisfactory position. Enteric tube ti p in the stomach. OTHER FINDINGS: None. . . .. IMPRESSION: Bibasilar atelectasis or pneumonia.
--- NOTE | 2024-10-22 09:05 | DVHPN2 ---
Consult Progress Note Date Seen: Oct 22, 2024 Subjective Other Systems: No overnight cardiac events reported Objective vital signs Vital Sign Date Time Temp Pulse Resp B/P (MAP) Pulse Ox O2 Delivery O2 Flow Rate FiO2 10/22/24 08:47 101/57 10/22/24 08:05 72 25 98 50 10/22/24 06:56 Mechanical Ventilator+ 10/22/24 04:15 98.8 98.8 Total Intake and Output 10/21/24 10/21/24 10/22/24 15:00 23:00 07:00 Intake Total 1567.70 ml 1095.311 ml Output Total 850 ml 2740 ml Balance 717.70 ml -1644.689 ml medications Current Medications Medications Dose Ordered Sig/Abundio Route Start Time Stop Time Status Last Admin Dose Admin Propofol 100 ml @ 2.4 mls/hr Q24H IV 10/21/24 10:45 10/22/24 04:31 9.6 MLS/HR Midazolam HCl 50 ml @ 1 mls/hr Q24H IV 10/21/24 11:00 10/22/24 08:47 15 MLS/HR Fentanyl Citrate 250 ml @ 2.5 mls/hr Q24H IV 10/21/24 11:00 10/22/24 06:56 10 MLS/HR Sodium Chloride 1,000 ml @ 100 mls/hr Q10H IV 10/21/24 11:30 10/22/24 01:46 100 MLS/HR Ondansetron HCl 4 mg Q4HP PRN IV 10/21/24 14:45 Diagnostic Test (Pha) 1 strip ACHS 10/21/24 17:00 10/22/24 06:56 1 STRIP Insulin Human Regular ACHS SC 10/21/24 17:00 10/21/24 17:19 2 UNITS Dextrose 50 ml UD PRN IV 10/21/24 14:45 Ceftriaxone Sodium 50 ml @ 100 mls/hr DAILY@09 IV 10/22/24 09:00 Nitroglycerin 0.4 mg Q5MINP PRN SL 10/21/24 15:45 Morphine Sulfate 2 mg Q30M PRN IV 10/21/24 15:45 Aspirin 81 mg DAILY PO 10/22/24 10:00 Ticagrelor 90 mg BID PO 10/21/24 22:00 Octreotide Acetate 500 mcg/ Sodium Chloride 100 ml @ 10 mls/hr Q10H IV 10/21/24 17:00 10/22/24 01:46 10 MLS/HR Norepinephrine Bitartrate 32 mg/ Sodium Chloride 250 ml @ 0.938 mls/ hr Q24H IV 10/21/24 17:00 10/22/24 08:42 3.75 MLS/HR Vasopressin 20 units/Sodium Chloride 100 ml @ 9 mls/hr Q11H7M IV 10/21/24 17:00 Examination: GENERAL:Abnormal, LUNGS:Abnormal (Mechanically ventilated), CVS:Abnormal (SR with T-wave inversion on monitor. On single-vasopressor), ABDOMEN:Abnormal (Rectal tube with dark tarry loose stool. Suction canister with coffee ground contents), NEURO:Abnormal (Chemically sedated) laboratory and microbiology Laboratory Tests 10/22/24 03:10 Test 10/22/24 03:10 Range/Units Serum Glucose 124 #H 74-106 mg/dL Problem List/Assessment/Plan Problem List/Assessment/Plan Non ST-elevation myocardial infarction s/p PCI to the LCx x 1DES Pulseless ventricular fibrillation arrest Cardiopulmonary arrest with ROSC Coronary artery disease status post PTCA x2 CATALINO, on ASA Ischemic cardiomyopathy with LVEF <20-25% Thrombocytopenia Hypertension Dyslipidemia Pre-DM HX of tobacco use Alcohol dependance Plan/Recommendation (Dr. Davis) The patient with ventricular tachycardia arrest underwent a cardiac catheterization and coronary angiogram with successful balloon angioplasty and stent placement of the LCx. Intra-procedure the patient developed an upper/lower GI bleed. Transthoracic echocardiogram revealed an EF of 20-25% with severe global hypokinesis of the inferior and lateral nicholson. Continue DAPT with Brillinta therapy as discussed with Dr. Davis. Initiate lipid-lowering agent when off NGT to LIS. Continue vasopressor for hemodynamic support. Monitor H&H and platelet count closely. Continue GI recommendations. DVT/VTE prophylaxis with SCDs. Rest of plan per clinical course. Thank you for allowing us to participate in this patient's care. Please call if you have any questions or concerns. Critical care time: 30 min. This medical document was created using an electronic medical record system with voice recognition software and computerized dictation system. Although this document has been carefully reviewed, there might still be some phonetic and typographical errors. Occasional wrong-word or ``sound-alike substitutions may have occurred due to the inherent limitations of voice recognition software. These areas are purely typographical due to imperfections of the software programs and do not reflect any compromise in the patient's medical care. Please read the chart carefully and recognize, using context, where these substitutions have occurred. Plan discussed with: Other Date of Service: Oct 22, 2024 Billing Provider: PATRICIA SUMMERS Cardiology Common Codes: 52472-GJRVEBJO CARE 30-74 MIN PATRICIA SUMMERS Oct 22, 2024 09:05
[2024-10-22] MEDS: ASPirin 81 mg TAB PO SCH (09:30)
[2024-10-22] MEDS: cefTRIAXone 1GM/50ML D5W 50 ML IV SCH (09:31)
[2024-10-22] MEDS ORDERED: VANCOMYCIN PER PHARMACY 0 MG IV SCH (11:15)
[2024-10-22] MEDS: PIPERACILLIN-TAZOB 3.375GM 100 ML IV SCH (12:00)
--- NOTE | 2024-10-22 13:52 | DVHPN2 ---
Progress Note Date Seen: Oct 22, 2024 Resident Creating Document: TY REYNOLDS RESIDENT Medical Necessity Reason Pt with a Central, PICC or Fol: Yes The following are medically ne: Central Line, Smith Catheter Subjective Review of Systems This is a 54-year-old man who presented to the emergency room via EMS as a secure code blue secondary to cardiopulmonary arrest. The patient was found unresponsive by coworkers at an imaging center with CPR initiated and AED shocks x 2 delivered prior to EMS arrival. ACLS protocol was implemented by EMS including 4 rounds of Epinephrine. ROSC was subsequently achieved with the patient being emergently endotracheally intubated upon arrival to the Emergency Room. During admission the patient transitioned from a sinus rhythm to sustained pulseless ventricular tachycardia undergoing defibrillation at 200 J with successful ROSC. Pt had ischemia present to anteroseptal and inferior wall. Post 2nd cardiac arrest 12 lead electrocardiogram revealed global ischemia mostly to inferior wall. Troponin levels are trending up with latest in the 200s ng/L. Per , the patient complaint of SOB, chest discomfort, and poor appetite yesterday. Pt underwent urgent cardiac catheterization with angioplasty and stent placement EF 25 % GI was consulted due to moderate diarrhoea requiring rectal tube followed by rectal bleeding. Nurse reports a small amount of bleeding which mostly appears old. Hb is stable at 21 ! 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 500cc of coffee ground emesis overnight, 210cc since am. Objective vital signs Vital Sign Date Time Temp Pulse Resp B/P (MAP) Pulse Ox O2 Delivery O2 Flow Rate FiO2 10/22/24 12:39 105/59 10/22/24 12:00 72 10/22/24 12:00 50 10/22/24 12:00 98.2 20 97 98.2 10/22/24 12:00 Mechanical Ventilator+ Total Intake and Output 10/21/24 10/21/24 10/22/24 14:59 22:59 06:59 Intake Total 1404.04 ml 1258.971 ml Output Total 850 ml 2740 ml Balance 554.04 ml -1481.029 ml medications Current Medications Medications Dose Ordered Sig/Abundio Route Start Time Stop Time Status Last Admin Dose Admin Propofol 100 ml @ 2.4 mls/hr Q24H IV 10/21/24 10:45 10/22/24 04:31 9.6 MLS/HR Midazolam HCl 50 ml @ 1 mls/hr Q24H IV 10/21/24 11:00 10/22/24 12:39 10 MLS/HR Fentanyl Citrate 250 ml @ 2.5 mls/hr Q24H IV 10/21/24 11:00 10/22/24 06:56 10 MLS/HR Diagnostic Test (Pha) 1 strip ACHS 10/21/24 17:00 10/22/24 11:30 1 STRIP Insulin Human Regular ACHS SC 10/21/24 17:00 10/21/24 17:19 2 UNITS Dextrose 50 ml UD PRN IV 10/21/24 14:45 Aspirin 81 mg DAILY PO 10/22/24 10:00 10/22/24 09:30 81 MG Ticagrelor 90 mg BID PO 10/21/24 22:00 10/22/24 09:30 90 MG Norepinephrine Bitartrate 32 mg/ Sodium Chloride 250 ml @ 0.938 mls/ hr Q24H IV 10/21/24 17:00 10/22/24 08:42 3.75 MLS/HR Vasopressin 20 units/Sodium Chloride 100 ml @ 9 mls/hr Q11H7M IV 10/21/24 17:00 Pantoprazole Sodium 40 mg DAILY IV 10/23/24 10:00 Vancomycin HCl 0 ml @ 0 mls/hr UD IV 10/22/24 11:15 UNV Piperacillin Sod/ Tazobactam Sod 100 ml @ 25 mls/hr Q6HR IV 10/22/24 12:00 Enteral Nutritional Formula 1,000 ml 30ML/HR GT 10/22/24 11:15 Docusate Sodium 100 mg BID GT 10/22/24 22:00 Vancomycin HCl 250 ml @ 250 mls/hr Q1H IV 10/22/24 14:00 10/22/24 15:59 Examination Patient lying in bed, intubated and mechanically ventilated General: Well-built, afebrile, palor, mucosae are moist Cardiovascular: Regular S1 and S2. No murmurs, gallops or rubs. No JVD elevation. No pedal edema Respiratory: Normal B/L air entry on room air. Clear lung sounds on auscultation Abdomen: Soft, nontender, nondistended, normoactive bowel sounds, no rebound tenderness, no organomegaly, no masses Genitourinary: Deferred MSK/skin: Skin is dry and warm laboratory and microbiology Laboratory Tests 10/22/24 03:10 Test 10/22/24 03:10 Range/Units Serum Glucose 124 #H 74-106 mg/dL Microbiology Date/Time Source Procedure Growth Status 10/21/24 10:25 Voided Urine Urine Culture - Preliminary Resulted Labs and/or images reviewed: Labs reviewed by me, Image(s) reviewed by me Problem List/Assessment/Plan Problem List/Assessment/Plan Active UGIB NSTEMI status post PCI with 1 CATALINO 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 Continue supportive management for now. H&H stable. Continue NGT to LIS Pantoprazole 40 mg IV b.i.d. Follow up with hepatitis panel Patient is currently on Brilinta and aspirin Avoid anticoagulation Overall his prognosis is guarded We will review history with his if he has had a previous colonoscopy Case discussed with nurse and Dr. Coto Plan discussed with: Patient TY REYNOLDS RESIDENT Oct 22, 2024 13:52
[2024-10-22] MEDS: PANTOPRAZOLE 40 MG/10 ML VIAL INJ IV ONE (14:11)
[2024-10-22] MEDS: PIPERACILLIN-TAZO 4.5GM 100 ML IV ONE (14:11)
[2024-10-22] MEDS: VANCOMYCIN 1GM/250ML KIT 250 ML IV SCH (15:51)
[2024-10-22 15:52] LABS: Base Excess -4.3 mmol/L (-2.0-3.0)
--- NOTE | 2024-10-22 19:01 | DVH ---
INDICATION: Transaminitis TECHNIQUE: Multiple real-time sonographic images were obtained of the right upper quadrant. COMPARISON: None FINDINGS: The liver demonstrates homogenous echotexture without focal mass lesions. The liver measure s 17 cm. There is no intrahepatic or extrahepatic ductal dilatation. The common duct measures 4 mm . The gallbladder is without evidence of stone or sludge. The gallbladder wall measures 2 mm and is w ithin normal limits. The right kidney measures 12.1 cm. The right kidney is normal in contour, size, and shape. The ech ogenicity is normal. There is no hydronephrosis. The pancreas is not well visualized due to overlying bowel gas. IMPRESSION: No sonographic evidence of gallstones or acute cholecystitis.
--- NOTE | 2024-10-22 22:25 | DVHPNRES ---
Progress Note Date Seen: Oct 22, 2024 Resident Creating Document: RIKI CORDERO RESIDENT Medical Necessity Reason Pt with a Central, PICC or Fol: Yes The following are medically ne: Central Line, Smith Catheter Subjective Review of Systems pt seen and examined at bedside currently sedated and intubated ROS could not be done as pt is sedated and intubated Objective vital signs Vital Sign Date Time Temp Pulse Resp B/P (MAP) Pulse Ox O2 Delivery O2 Flow Rate FiO2 10/22/24 21:51 99 27 126/70 (88) 93 30 10/22/24 21:15 99.0 210.2 10/22/24 20:00 Mechanical Ventilator+ Total Intake and Output 10/21/24 10/21/24 10/22/24 15:00 23:00 07:00 Intake Total 1567.70 ml 1260.321 ml Output Total 850 ml 2740 ml Balance 717.70 ml -1479.679 ml medications Current Medications Medications Dose Ordered Sig/Abundio Route Start Time Stop Time Status Last Admin Dose Admin Propofol 100 ml @ 2.4 mls/hr Q24H IV 10/21/24 10:45 10/22/24 15:57 2.4 MLS/HR Midazolam HCl 50 ml @ 1 mls/hr Q24H IV 10/21/24 11:00 10/22/24 17:08 7 MLS/HR Fentanyl Citrate 250 ml @ 2.5 mls/hr Q24H IV 10/21/24 11:00 10/22/24 06:56 10 MLS/HR Diagnostic Test (Pha) 1 strip ACHS 10/21/24 17:00 10/22/24 17:19 1 STRIP Insulin Human Regular ACHS SC 10/21/24 17:00 10/22/24 17:19 3 UNITS Dextrose 50 ml UD PRN IV 10/21/24 14:45 Aspirin 81 mg DAILY PO 10/22/24 10:00 10/22/24 09:30 81 MG Ticagrelor 90 mg BID PO 10/21/24 22:00 10/22/24 09:30 90 MG Norepinephrine Bitartrate 32 mg/ Sodium Chloride 250 ml @ 0.938 mls/ hr Q24H IV 10/21/24 17:00 10/22/24 08:42 3.75 MLS/HR Vasopressin 20 units/Sodium Chloride 100 ml @ 9 mls/hr Q11H7M IV 10/21/24 17:00 Vancomycin HCl 0 ml @ 0 mls/hr UD IV 10/22/24 11:15 Piperacillin Sod/ Tazobactam Sod 100 ml @ 25 mls/hr Q6HR IV 10/22/24 12:00 10/22/24 18:20 25 MLS/HR Enteral Nutritional Formula 1,000 ml 30ML/HR GT 10/22/24 11:15 Docusate Sodium 100 mg BID GT 10/22/24 22:00 Atorvastatin Calcium 40 mg HS PO 10/22/24 22:00 Pantoprazole Sodium 40 mg BID IV 10/22/24 22:00 Vancomycin HCl 250 ml @ 200 mls/hr Q12H IV 10/23/24 05:00 Examination Examination General Appearance: Sedated and intubated HEENT: EOMI Respiratory: Clear to auscultation, Normal air movement Cardiovascular: Regular rate, Normal S1, Normal S2 Abdominal: Normal bowel sounds Extremities: No cyanosis, No edema, Normal pulses, No tenderness/swelling Skin: No rashes, No breakdown Neuro: Sedated intubated laboratory and microbiology Laboratory Tests 10/22/24 03:10 Test 10/22/24 03:10 Range/Units Serum Glucose 124 #H 74-106 mg/dL Microbiology Date/Time Source Procedure Growth Status 10/21/24 14:56 Blood Blood Culture - Preliminary NO GROWTH AFTER 24 HOURS OF INCUBATION. Resulted 10/21/24 10:25 Voided Urine Urine Culture - Preliminary Resulted 10/21/24 10:24 Sputum Gram Stain - Final Resulted 10/21/24 10:24 Sputum Respiratory Culture - Preliminary Resulted Labs and/or images reviewed: Labs reviewed by me, Image(s) reviewed by me Problem List/Assessment/Plan Problem List/Assessment/Plan Assessment/plan Neurology # sedation Versed, propofol, fentanyl Cardiology # shock likely cardiogenic Currently on norepinephrine drip # cardiac arrest status post ROSC due to ? Arrhythmia ? ACS -had cardiac arrest 2 times -head CT # acute on chronic heart failure with reduced ejection fraction ischemic cardiopathy, ? Alcoholic cardiomyopathy Echocardiogram Currently on IV norepinephrine drip # coronary artery disease, history of CT status post PCI 2 times -continue aspirin and Brilinta -continue statin # NSTEMI status post cardiac catheterization and PCI -continue statins Continue aspirin and Brilinta -cardiac catheterization report: Bilateral cine coronary angiography. Left ventriculography. PTCA and stenting of the circumflex coronary artery. Respiratory # acute hypoxic respiratory failure due to cardiac arrest Currently on mechanical ventilator #? acute exacerbation of COPD -currently on mechanical ventilator GI # GI bleed, upper GI/lower GI bleed, history of upper GI ulcers as per family, history of hemorrhoids -IV Protonix b.i.d. Discontinue octreotide drip considering no evidence of cirrhosis on imaging GI on board # history of gastric/duodenal ulcers -IV Protonix b.i.d. # history of hemorrhoids Monitor CBC # transaminitis likely due to alcohol use disorder -monitor Infectious disease # sepsis with septic shock likely due to? Aspiration pneumonia, the source of infection not ruled out yet IV antibiotic Pancultures Hematology # polycythemia likely secondary to excessive smoking Monitor CBC # coagulopathy -monitor # thrombocytopenia, likely chronic as per past medical history -Monitor Nephrology # metabolic acidosis with compensatory respiratory alkalosis Monitor ABG in the a.m. Psychiatry # tobacco use disorder We will rehabilitation services counselor on cessation once he is alert # alcohol use disorder We will rehabilitation services counselor on cessation once he is alert # cannabis use disorder We will rehabilitation services counselor on cessation once patient is alert DVT prophylaxis Lovenox Currently on hold because of GI bleed SCDs PUD prophylaxis IV Protonix 40 mg b.i.d. Nutrition NPO considering GI bleed Bowel regimen NPO considering GI bleed Lines Right femoral triple-lumen catheter Right femoral A-line Drips Norepinephrine Fentanyl Propofol Versed Code status discussed with the family for greater than 21 minutes, full code Case discussion with Dr. fraga Critical care time excluding procedures 97 minutes Plan discussed with: Other My Orders My Orders Orders - RIKI CORDERO RESIDENT Procedure Category Date Status Time Vancomycin Per PHA 10/22/24 In Process Pharmacy 11:15 Piperacillin-Tazob PHA 10/22/24 In Process 3.375gm (Zosyn 3.375g 12:00 Mrsa Screen MARIA VICTORIA 10/22/24 In Process 18:00 Nutritional PHA 10/22/24 In Process Supplements (Jevity 11:15 Docusate Sodium PHA 10/22/24 In Process Liquid (Colace Liquid) 22:00 Vancomycin PHA 10/23/24 In Process 1.25gm/250ml 05:00 Vancomycin,[facility] 10/24/24 Verified 04:00 Vancomycin Per ANGEL 10/24/24 In Process Pharmacy Protoc 05:00 Covid19 Antigen [facility] 10/22/24 Logged Rapid Influenza A&B LAB 10/22/24 Logged 21:40 Date of Service: Oct 22, 2024 Billing Provider: NICK FRAGA MD Common Visit Codes: 78698-[id number] CARE 30-74 MIN, 59575-[id number] CARE-EACH +30MIN RIKI CORDERO RESIDENT Oct 22, 2024 22:25 NICK FRAGA MD Oct 23, 2024 11:41
[2024-10-22] MEDS: DOCUSATE ORAL LIQUID 100 MG/10 ML UD GT SCH (23:07)
[2024-10-22] MEDS: PANTOPRAZOLE 40 MG/10 ML VIAL INJ IV SCH (23:07)
[2024-10-22] MEDS: ATORVASTATIN 20 MG TAB PO SCH (23:07)
[2024-10-22] MEDS: AMIODARONE 360mg/200mL PREMIX 200 ML IV SCH (23:30)
[2024-10-23] VITALS (105 sets, daily range): BP systolic 92–147; BP diastolic 51–88; PULSE 68–99; RESP 18–26; TEMP 96.4–100; O2SAT 92–100
[2024-10-23 00:22] LABS: COVID19 ANTIGEN SOFIA FIA NEGATIVE (NEGATIVE)
[2024-10-23 03:37] LABS: Rapid Influenza A Negative (Negative); Rapid Influenza B Negative (Negative)
[2024-10-23 03:41] LABS: Alanine Aminotransferase 32 U/L (7-40); Albumin 3.2 g/dL (3.2-4.8); Alkaline Phosphatase 57 U/L (46-116); Anion Gap 10 (5-15); BUN/Creatinine Ratio 9.9 (10.0-20.0); Bilirubin, Total 0.7 mg/dL (0.2-1.0); Blood Urea Nitrogen 9 mg/dL (9-23); Calcium 8.8 mg/dL (8.7-10.4); Carbon Dioxide 23 mmol/L (20-31); Chloride 106 mmol/L (98-107); Magnesium 1.7 mg/dL (1.6-2.6); Sodium 139 mmol/L (136-145)
[2024-10-23 03:46] LABS: Basophils # (auto) 0.1 10 ^3/uL (0-0.2); Basophils % (auto) 0.7 % (0.0-2.0); Eosinophils # (auto) 0 10 ^3/uL (0-0.8)
[2024-10-23 03:48] LABS: Eosinophils % (auto) 0.2 % (0.0-7.0); Hematocrit 54.8 % (41.0-53.0); Hemoglobin 18.1 g/dL (13.5-17.5); Lymphocytes # (auto) 0.9 10 ^3/uL (0.4-5.4); Lymphocytes % (auto) 5.8 % (10.0-50.0); Mean Corpuscular Hemoglobin 31.4 pg (28.0-32.0); Mean Corpuscular Hgb Conc. 32.9 g/dL (32.0-36.0); Mean Corpuscular Volume 95.4 fL (80.0-100.0); Monocytes # (auto) 1.1 10 ^3/uL (0-1.3); Monocytes % (auto) 7.1 % (0.0-12.0); Neutrophils # (auto) 12.8 10 ^3/uL (1.6-8.6); Neutrophils % (auto) 86.2 % (37.0-80.0); Nucleated Red Blood Cells % 0.1 %; Platelet Count (auto) 100 10^3/uL (140-450); Red Blood Cells 5.75 10^6/uL (4.5-5.90); Red Cell Distribution Width 15.5 % (11.8-14.3); White Blood Cell 14.9 10^3/uL (4.4-10.8)
[2024-10-23 04:02] LABS: Aspartate Aminotransferase 112 U/L (13-40); Glucose 133 mg/dL (74-106); Potassium 3.5 mmol/L (3.5-5.1); Total Protein 5.5 g/dL (5.7-8.2)
[2024-10-23] MEDS: POTASSIUM CHL 20MEQ/100ML 100 ML IV SCH (05:08)
[2024-10-23] MEDS: MAGNESIUM SULFATE 1GM/100ML 100 ML IV SCH (05:08)
--- NOTE | 2024-10-23 05:09 | DVH ---
CHEST RADIOGRAPH Indication: intubated Technique: Single frontal view of the chest was obtained Comparison: XY CHEST PORTABLE on DOS: 10/22/24 FINDINGS: Lines and Tubes: Endotracheal tube terminates 5.4 cm above the joy. The enteric tube courses below the left hemidiaphragm and the tip extends outside the field of view. Lungs: Bibasilar consolidation. Pleura: No effusion. No pneumothorax. Cardiomediastinal contours: Unremarkable Bones: No acute osseous abnormality. ACDF. IMPRESSION: 1. Bibasilar consolidation which may reflect atelectasis or pneumonia. No significant interval change .
[2024-10-23] MEDS: VANCOMYCIN 1.25GM/250ML 250 ML IV SCH (05:46)
--- NOTE | 2024-10-23 07:12 | ECG ---
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
[2024-10-23] MEDS: AMIODARONE 360mg/200mL PREMIX 200 ML IV ONE (08:00)
[2024-10-23 08:14] LABS: Base Excess -0.9 mmol/L (-2.0-3.0)
[2024-10-23] MEDS: AMIODARONE 360mg/200mL PREMIX 200 ML IV SCH (08:47)
[2024-10-23 08:57] LABS: Hepatitis B Surface Antibody Positive (Negative); Hepatitis B Surface Antigen Negative (Negative)
[2024-10-23 09:17] LABS: Hepatitis C Antibody Negative (Negative)
[2024-10-23 09:39] LABS: INR 1.18 (0.9-1.15); Partial Thromboplastin Time 29.4 SEC (24.5-34.5); Prothrombin Time 12.3 sec (9.3-11.8)
[2024-10-23] MEDS ORDERED: PANTOPRAZOLE 40 MG/10 ML VIAL INJ IV SCH (10:00)
[2024-10-23 11:37] LABS: Potassium 3.8 mmol/L (3.5-5.1)
--- NOTE | 2024-10-23 11:40 | DVHPN2 ---
Progress Note Date Seen: Oct 23, 2024 Resident Creating Document: TY REYNOLDS RESIDENT Medical Necessity Reason Pt with a Central, PICC or Fol: Yes The following are medically ne: Central Line, Smith Catheter Subjective Review of Systems This is a 54-year-old man who presented to the emergency room via EMS as a secure code blue secondary to cardiopulmonary arrest. The patient was found unresponsive by coworkers at an imaging center with CPR initiated and AED shocks x 2 delivered prior to EMS arrival. ACLS protocol was implemented by EMS including 4 rounds of Epinephrine. ROSC was subsequently achieved with the patient being emergently endotracheally intubated upon arrival to the Emergency Room. During admission the patient transitioned from a sinus rhythm to sustained pulseless ventricular tachycardia undergoing defibrillation at 200 J with successful ROSC. Pt had ischemia present to anteroseptal and inferior wall. Post 2nd cardiac arrest 12 lead electrocardiogram revealed global ischemia mostly to inferior wall. Troponin levels are trending up with latest in the 200s ng/L. Per , the patient complaint of SOB, chest discomfort, and poor appetite yesterday. Pt underwent urgent cardiac catheterization with angioplasty and stent placement EF 25 % GI was consulted due to moderate diarrhoea requiring rectal tube followed by rectal bleeding. Nurse reports a small amount of bleeding which mostly appears old. Hb is stable at 21 ! 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 20 cc of coffee-ground emesis. Episode of V-tach last night. Dark brown stool in the rectal vault. Okay to start enteral feeding. Objective vital signs Vital Sign Date Time Temp Pulse Resp B/P (MAP) Pulse Ox O2 Delivery O2 Flow Rate FiO2 10/23/24 11:00 119/65 10/23/24 09:53 84 24 96 30 10/23/24 09:51 Mechanical Ventilator 10/23/24 09:45 99.7 211.5 Total Intake and Output 10/22/24 10/22/24 10/23/24 15:00 23:00 07:00 Intake Total 754.081 ml 697.28 ml 896.314 ml Output Total 730 ml 930 ml Balance 754.081 ml -32.72 ml -33.686 ml medications Current Medications Medications Dose Ordered Sig/Abundio Route Start Time Stop Time Status Last Admin Dose Admin Propofol 100 ml @ 2.4 mls/hr Q24H IV 10/21/24 10:45 10/23/24 06:36 7.2 MLS/HR Midazolam HCl 50 ml @ 1 mls/hr Q24H IV 10/21/24 11:00 10/23/24 06:36 7 MLS/HR Fentanyl Citrate 250 ml @ 2.5 mls/hr Q24H IV 10/21/24 11:00 10/23/24 06:35 10 MLS/HR Diagnostic Test (Pha) 1 strip ACHS 10/21/24 17:00 10/23/24 07:29 1 STRIP Insulin Human Regular ACHS SC 10/21/24 17:00 10/23/24 05:28 2 UNITS Dextrose 50 ml UD PRN IV 10/21/24 14:45 Aspirin 81 mg DAILY PO 10/22/24 10:00 10/23/24 08:57 81 MG Ticagrelor 90 mg BID PO 10/21/24 22:00 10/23/24 08:57 90 MG Norepinephrine Bitartrate 32 mg/ Sodium Chloride 250 ml @ 0.938 mls/ hr Q24H IV 10/21/24 17:00 10/22/24 08:42 3.75 MLS/HR Vasopressin 20 units/Sodium Chloride 100 ml @ 9 mls/hr Q11H7M IV 10/21/24 17:00 Vancomycin HCl 0 ml @ 0 mls/hr UD IV 10/22/24 11:15 Piperacillin Sod/ Tazobactam Sod 100 ml @ 25 mls/hr Q6HR IV 10/22/24 12:00 10/23/24 08:28 25 MLS/HR Enteral Nutritional Formula 1,000 ml 30ML/HR GT 10/22/24 11:15 Docusate Sodium 100 mg BID GT 10/22/24 22:00 10/23/24 08:57 100 MG Atorvastatin Calcium 40 mg HS PO 10/22/24 22:00 10/22/24 23:07 40 MG Pantoprazole Sodium 40 mg BID IV 10/22/24 22:00 10/23/24 08:57 40 MG Vancomycin HCl 250 ml @ 200 mls/hr Q12H IV 10/23/24 05:00 10/23/24 05:46 200 MLS/HR Examination Patient lying in bed, intubated and mechanically ventilated General: Well-built, afebrile, palor, mucosae are moist Cardiovascular: Regular S1 and S2. No murmurs, gallops or rubs. No JVD elevation. No pedal edema Respiratory: Normal B/L air entry on room air. Clear lung sounds on auscultation Abdomen: Soft, nontender, nondistended, normoactive bowel sounds, no rebound tenderness, no organomegaly, no masses Genitourinary: Deferred MSK/skin: Skin is dry and warm laboratory and microbiology Laboratory Tests 10/23/24 02:53 Test 10/23/24 02:53 Range/Units Serum Glucose 133 H 74-106 mg/dL Microbiology Date/Time Source Procedure Growth Status 10/21/24 14:56 Blood Blood Culture - Preliminary NO GROWTH AFTER 24 HOURS OF INCUBATION. 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 Continue supportive management for now. H&H stable. Okay to start enteral feeding, started 10 cc/hour and advanced as tolerated. WBC trending down, hemoglobin stable at 18. Pantoprazole 40 mg IV b.i.d. Follow up with hepatitis panel Patient is currently on Brilinta and aspirin Avoid anticoagulation Overall his prognosis is guarded We will review history with his if he has had a previous colonoscopy Attempted to call family, unable to reach out Case discussed with nurse and Dr. Coto Plan discussed with: Other (Nurse) My Orders My Orders Orders - TY REYNOLDS Procedure Category Date Status Time Pantoprazole PHA 10/22/24 In Process (Protonix) 22:00 LIVER US 10/22/24 Resulted 17:37 Mrsa Screen MARIA VICTORIA 10/23/24 Logged 09:47 TY REYNOLDS Oct 23, 2024 11:40
[2024-10-23 11:42] LABS: Magnesium 2.1 mg/dL (1.6-2.6)
[2024-10-23] MEDS ORDERED: AMIODARONE 360mg/200mL PREMIX 200 ML IV SCH (12:00)
--- NOTE | 2024-10-23 13:16 | DVHPN2 ---
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 Objective vital signs Vital Sign Date Time Temp Pulse Resp B/P (MAP) Pulse Ox O2 Delivery O2 Flow Rate FiO2 10/23/24 12:00 122/74 10/23/24 11:52 80 24 100 30 10/23/24 09:51 Mechanical Ventilator 10/23/24 09:45 99.7 211.5 Total Intake and Output 10/22/24 10/22/24 10/23/24 15:00 23:00 07:00 Intake Total 754.081 ml 697.28 ml 896.314 ml Output Total 730 ml 930 ml Balance 754.081 ml -32.72 ml -33.686 ml medications Current Medications Medications Dose Ordered Sig/Abundio Route Start Time Stop Time Status Last Admin Dose Admin Propofol 100 ml @ 2.4 mls/hr Q24H IV 10/21/24 10:45 10/23/24 06:36 7.2 MLS/HR Midazolam HCl 50 ml @ 1 mls/hr Q24H IV 10/21/24 11:00 10/23/24 06:36 7 MLS/HR Fentanyl Citrate 250 ml @ 2.5 mls/hr Q24H IV 10/21/24 11:00 10/23/24 06:35 10 MLS/HR Diagnostic Test (Pha) 1 strip ACHS 10/21/24 17:00 10/23/24 11:30 1 STRIP Insulin Human Regular ACHS SC 10/21/24 17:00 10/23/24 05:28 2 UNITS Dextrose 50 ml UD PRN IV 10/21/24 14:45 Aspirin 81 mg DAILY PO 10/22/24 10:00 10/23/24 08:57 81 MG Ticagrelor 90 mg BID PO 10/21/24 22:00 10/23/24 08:57 90 MG Norepinephrine Bitartrate 32 mg/ Sodium Chloride 250 ml @ 0.938 mls/ hr Q24H IV 10/21/24 17:00 10/22/24 08:42 3.75 MLS/HR Vasopressin 20 units/Sodium Chloride 100 ml @ 9 mls/hr Q11H7M IV 10/21/24 17:00 Vancomycin HCl 0 ml @ 0 mls/hr UD IV 10/22/24 11:15 Piperacillin Sod/ Tazobactam Sod 100 ml @ 25 mls/hr Q6HR IV 10/22/24 12:00 10/23/24 12:57 25 MLS/HR Enteral Nutritional Formula 1,000 ml 30ML/HR GT 10/22/24 11:15 Docusate Sodium 100 mg BID GT 10/22/24 22:00 10/23/24 08:57 100 MG Atorvastatin Calcium 40 mg HS PO 10/22/24 22:00 10/22/24 23:07 40 MG Pantoprazole Sodium 40 mg BID IV 10/22/24 22:00 10/23/24 08:57 40 MG Vancomycin HCl 250 ml @ 200 mls/hr Q12H IV 10/23/24 05:00 10/23/24 05:46 200 MLS/HR Examination: GENERAL:Abnormal, LUNGS:Abnormal (Mechanically ventilated), CVS:Abnormal (Episodes of V-tach on monitor), NEURO:Abnormal (Chemically sedated) laboratory and microbiology Laboratory Tests 10/23/24 11:00 10/23/24 02:53 Test 10/23/24 02:53 Range/Units Serum Glucose 133 H 74-106 mg/dL Problem List/Assessment/Plan Problem List/Assessment/Plan Non ST-elevation myocardial infarction s/p PCI to the LCx x 1 CATALINO Pulseless ventricular fibrillation arrest Sustained ventricular tachycardia status post direct current cardioversion Cardiopulmonary arrest with ROSC Coronary artery disease status post PTCA x2 CATALINO, on ASA Ischemic cardiomyopathy with LVEF <20-25% Thrombocytopenia Hypertension Dyslipidemia Pre-DM HX of tobacco use Alcohol dependance Plan/Recommendation (Dr. Davis) The patient with ventricular tachycardia arrest underwent a cardiac catheterization and coronary angiogram with successful balloon angioplasty and stent placement of the LCx. Intra-procedure the patient developed an upper/lower GI bleed. Transthoracic echocardiogram revealed an EF of 20-25% with severe global hypokinesis of the inferior and lateral nicholson. Continue DAPT with Brillinta therapy as discussed with Dr. Davis. Continue lipid-lowering agent. Patient now off of vasopressor therapy. The patient had an episode of sustained V-tach overnight in which the patient was cardioverted. He now remains in normal sinus rhythm and is on an amiodarone drip. Monitor H&H and platelet count closely. Continue GI recommendations. DVT/VTE prophylaxis with SCDs. Rest of plan per clinical course. Thank you for allowing us to participate in this patient's care. Please call if you have any questions or concerns. Critical care time: 30 min. This medical document was created using an electronic medical record system with voice recognition software and computerized dictation system. Although this document has been carefully reviewed, there might still be some phonetic and typographical errors. Occasional wrong-word or ``sound-alike substitutions may have occurred due to the inherent limitations of voice recognition software. These areas are purely typographical due to imperfections of the software programs and do not reflect any compromise in the patient's medical care. Please read the chart carefully and recognize, using context, where these substitutions have occurred. Plan discussed with: Other (Bedside RN) Date of Service: Oct 23, 2024 Billing Provider: YANNICK VILLALTA Common Visit Codes: [id number] CARE 30-74 MIN YANNICK VILLALTA Oct 23, 2024 13:16
[2024-10-23] MEDS: Jevity 1.2 Cal/Fiber 1 Liter GT SCH (13:38)
[2024-10-23] MEDS ORDERED: AMIODARONE HCL (50 MG/ ML) 3 ML VIAL IV ONE (13:38)
--- NOTE | 2024-10-23 14:57 | ECG ---
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
[2024-10-23] MEDS: POTASSIUM CHL 20MEQ/100ML 100 ML IV ONE (21:06)
--- NOTE | 2024-10-23 21:13 | DVHPNRES ---
Progress Note Date Seen: Oct 23, 2024 Resident Creating Document: RIKI CORDERO RESIDENT Medical Necessity Reason Pt with a Central, PICC or Fol: Yes The following are medically ne: Central Line, Smith Catheter Subjective Review of Systems pt seen and examined at bedside currently sedated and intubated pt had an episode of VTACH last night where he had sync cardioversion and later Amiodarone was increased to 1 from 0.5 ROS could not be done as pt is sedated and intubated Objective vital signs Vital Sign Date Time Temp Pulse Resp B/P (MAP) Pulse Ox O2 Delivery O2 Flow Rate FiO2 10/23/24 20:18 72 24 131/83 (99) 99 30 10/23/24 19:00 99.5 211.1 10/23/24 18:00 Mechanical Ventilator+ Total Intake and Output 10/22/24 10/22/24 10/23/24 15:00 23:00 07:00 Intake Total 754.081 ml 697.28 ml 896.314 ml Output Total 730 ml 930 ml Balance 754.081 ml -32.72 ml -33.686 ml medications Current Medications Medications Dose Ordered Sig/Abundio Route Start Time Stop Time Status Last Admin Dose Admin Propofol 100 ml @ 2.4 mls/hr Q24H IV 10/21/24 10:45 10/23/24 14:47 2.4 MLS/HR Midazolam HCl 50 ml @ 1 mls/hr Q24H IV 10/21/24 11:00 10/23/24 06:36 7 MLS/HR Fentanyl Citrate 250 ml @ 2.5 mls/hr Q24H IV 10/21/24 11:00 10/23/24 06:35 10 MLS/HR Diagnostic Test (Pha) 1 strip ACHS 10/21/24 17:00 10/23/24 17:43 1 STRIP Insulin Human Regular ACHS SC 10/21/24 17:00 10/23/24 05:28 2 UNITS Dextrose 50 ml UD PRN IV 10/21/24 14:45 Aspirin 81 mg DAILY PO 10/22/24 10:00 10/23/24 08:57 81 MG Ticagrelor 90 mg BID PO 10/21/24 22:00 10/23/24 08:57 90 MG Norepinephrine Bitartrate 32 mg/ Sodium Chloride 250 ml @ 0.938 mls/ hr Q24H IV 10/21/24 17:00 10/22/24 08:42 3.75 MLS/HR Vasopressin 20 units/Sodium Chloride 100 ml @ 9 mls/hr Q11H7M IV 10/21/24 17:00 Vancomycin HCl 0 ml @ 0 mls/hr UD IV 10/22/24 11:15 Piperacillin Sod/ Tazobactam Sod 100 ml @ 25 mls/hr Q6HR IV 10/22/24 12:00 10/23/24 17:15 25 MLS/HR Enteral Nutritional Formula 1,000 ml 30ML/HR GT 10/22/24 11:15 10/23/24 13:38 1,000 ML Docusate Sodium 100 mg BID GT 10/22/24 22:00 10/23/24 08:57 100 MG Atorvastatin Calcium 40 mg HS PO 10/22/24 22:00 10/22/24 23:07 40 MG Pantoprazole Sodium 40 mg BID IV 10/22/24 22:00 10/23/24 08:57 40 MG Vancomycin HCl 250 ml @ 200 mls/hr Q12H IV 10/23/24 05:00 10/23/24 05:46 200 MLS/HR Examination Examination General Appearance: Sedated and intubated HEENT: EOMI Respiratory: Clear to auscultation, Normal air movement Cardiovascular: Regular rate, Normal S1, Normal S2 Abdominal: Normal bowel sounds Extremities: No cyanosis, No edema, Normal pulses, No tenderness/swelling Skin: No rashes, No breakdown Neuro: Sedated intubated laboratory and microbiology Laboratory Tests 10/23/24 11:00 10/23/24 02:53 Test 10/23/24 02:53 Range/Units Serum Glucose 133 H 74-106 mg/dL Microbiology Date/Time Source Procedure Growth Status 10/22/24 18:25 Nose MRSA Screen - Final Complete 10/21/24 14:56 Blood Blood Culture - Preliminary NO GROWTH AFTER 48 HOURS OF INCUBATION. Resulted 10/21/24 10:25 Voided Urine Urine Culture - Final Complete 10/21/24 10:24 Sputum Gram Stain - Final Complete 10/21/24 10:24 Respiratory Culture - Final Escherichia coli Complete Labs and/or images reviewed: Labs reviewed by me, Image(s) reviewed by me Problem List/Assessment/Plan Problem List/Assessment/Plan Assessment/plan Neurology # sedation Versed, propofol, fentanyl Cardiology # shock likely cardiogenic Currently on norepinephrine drip # cardiac arrest status post ROSC due to ? Arrhythmia ? ACS -had cardiac arrest 2 times -head CT # acute on chronic heart failure with reduced ejection fraction ischemic cardiopathy, ? Alcoholic cardiomyopathy Echocardiogram Currently on IV norepinephrine drip # coronary artery disease, history of [place] status post PCI 2 times -continue aspirin and Brilinta -continue statin # NSTEMI status post cardiac catheterization and PCI -continue statins Continue aspirin and Brilinta -cardiac catheterization report: Bilateral cine coronary angiography. Left ventriculography. PTCA and stenting of the circumflex coronary artery. #V-tach, sustained, currently sinus rhythm -pt had cardioversion -amiodarone drip increased to 1 -keep potassium >4, mag >2 Respiratory # acute hypoxic respiratory failure due to cardiac arrest Currently on mechanical ventilator #? acute exacerbation of COPD -currently on mechanical ventilator GI # GI bleed, upper GI/lower GI bleed, history of upper GI ulcers as per family, history of hemorrhoids -IV Protonix b.i.d. Discontinue octreotide drip considering no evidence of cirrhosis on imaging GI on board # history of gastric/duodenal ulcers -IV Protonix b.i.d. # history of hemorrhoids Monitor CBC # transaminitis likely due to alcohol use disorder -monitor Infectious disease # sepsis with septic shock likely due to? Aspiration pneumonia, the source of infection not ruled out yet IV antibiotic Panculture Hematology # polycythemia likely secondary to excessive smoking Monitor CBC # coagulopathy -monitor # thrombocytopenia, likely chronic as per past medical history -Monitor Nephrology # metabolic acidosis with compensatory respiratory alkalosis Monitor ABG in the a.m. Psychiatry # tobacco use disorder We will rehabilitation services counselor on cessation once he is alert # alcohol use disorder We will rehabilitation services counselor on cessation once he is alert # cannabis use disorder We will rehabilitation services counselor on cessation once patient is alert DVT prophylaxis Lovenox Currently on hold because of GI bleed SCDs PUD prophylaxis IV Protonix 40 mg b.i.d. Nutrition NPO considering GI bleed Bowel regimen NPO considering GI bleed Lines Right femoral triple-lumen catheter Right femoral A-line ordered PICC line Drips Norepinephrine Fentanyl Propofol Versed Code status discussed with the family for greater than 21 minutes, full code Case discussion with Dr. fraga Critical care time excluding procedures, family discussion was 87 minutes Plan discussed with: Other My Orders My Orders Orders - RIKI CORDERO Procedure Category Date Status Time Abg W/ Co-Ox RT 10/23/24 Logged 04:00 Date of Service: Oct 23, 2024 Billing Provider: NICK FRAGA MD Common Visit Codes: 54828-RZOCIPTM CARE 30-74 MIN, 54981-ADCOXVND CARE-EACH +30MIN RIKI CORDERO RESIDENT Oct 23, 2024 21:13 NICK FRAGA MD Oct 26, 2024 13:08
[2024-10-24] VITALS (109 sets, daily range): BP systolic 110–154; BP diastolic 57–89; PULSE 65–83; RESP 14–35; TEMP 98.1–99.7; O2SAT 92–100
[2024-10-24 04:11] LABS: Basophils # (auto) 0 10 ^3/uL (0-0.2); Basophils % (auto) 0.1 % (0.0-2.0); Eosinophils # (auto) 0 10 ^3/uL (0-0.8); Eosinophils % (auto) 0.2 % (0.0-7.0); Hemoglobin 16.9 g/dL (13.5-17.5); Lymphocytes # (auto) 0.7 10 ^3/uL (0.4-5.4); Mean Corpuscular Hemoglobin 31.6 pg (28.0-32.0); Mean Corpuscular Hgb Conc. 33.1 g/dL (32.0-36.0); Mean Corpuscular Volume 95.4 fL (80.0-100.0); Neutrophils # (auto) 12.8 10 ^3/uL (1.6-8.6); Neutrophils % (auto) 87.7 % (37.0-80.0); Platelet Count (auto) 85 10^3/uL (140-450); Red Blood Cells 5.35 10^6/uL (4.5-5.90); Red Cell Distribution Width 15.3 % (11.8-14.3); White Blood Cell 14.6 10^3/uL (4.4-10.8)
[2024-10-24 04:35] LABS: Anion Gap 9 (5-15); Carbon Dioxide 24 mmol/L (20-31); Chloride 105 mmol/L (98-107); Potassium 3.5 mmol/L (3.5-5.1); Sodium 138 mmol/L (136-145)
[2024-10-24 04:41] LABS: BUN/Creatinine Ratio 9.6 (10.0-20.0); Blood Urea Nitrogen 7 mg/dL (9-23); Calcium 8.4 mg/dL (8.7-10.4); Glucose 149 mg/dL (74-106)
--- NOTE | 2024-10-24 05:22 | DVH ---
EXAM: XR Chest, 1 View CLINICAL INDICATION: mech vent TECHNIQUE: Frontal view of the chest. COMPARISON: XY CHEST PORTABLE on DOS: 10/23/24, XY CHEST PORTABLE on DOS: 10/22/24 FINDINGS: LUNGS AND PLEURAL SPACES: Unremarkable. No consolidation. No pneumothorax. HEART: Mild CHF MEDIASTINUM: Unremarkable. Normal mediastinal contour. BONES/JOINTS: Unremarkable. No acute fracture. TUBES, LINES AND DEVICES: The endotracheal tube (ETT) is in satisfactory position. Enteric tube ti p in the stomach. OTHER FINDINGS: . Mild CHF. . . .. IMPRESSION: No significant change from the prior exam.
[2024-10-24] MEDS: POTASSIUM CHL 20MEQ/100ML 100 ML IV ONE (05:36)
[2024-10-24 06:33] LABS: Base Excess 0.1 mmol/L (-2.0-3.0)
[2024-10-24] MEDS: LIDOCAINE 1% (LOCAL ANESTH.) PF 5ml SDV ID ONE (09:19)
[2024-10-24] MEDS: SODIUM CHLOR 0.9% PF (SALINE LOCK) 10ML VIAL/SYR IV SCH (09:48)
--- NOTE | 2024-10-24 11:09 | DVHPN2 ---
Consult Progress Note Subjective Other Systems: Patient in normal sinus rhythm at time of assessment. One episode of nonsustained V-tach seen on monitor from this morning. Objective vital signs Vital Sign Date Time Temp Pulse Resp B/P (MAP) Pulse Ox O2 Delivery O2 Flow Rate FiO2 10/24/24 10:30 99.0 74 24 118/65 (82) 97 210.2 125/76 (92) 10/24/24 10:00 Mechanical Ventilator+ 30 30 Total Intake and Output 10/23/24 10/23/24 10/24/24 15:00 23:00 07:00 Intake Total 552.415 ml 560.84 ml 901.64 ml Output Total 725 ml 655 ml Balance 552.415 ml -164.16 ml 246.64 ml medications Current Medications Medications Dose Ordered Sig/Abundio Route Start Time Stop Time Status Last Admin Dose Admin Propofol 100 ml @ 2.4 mls/hr Q24H IV 10/21/24 10:45 10/24/24 07:53 Midazolam HCl 50 ml @ 1 mls/hr Q24H IV 10/21/24 11:00 10/23/24 06:36 Fentanyl Citrate 250 ml @ 2.5 mls/hr Q24H IV 10/21/24 11:00 10/24/24 01:20 Diagnostic Test (Pha) 1 strip ACHS 10/21/24 17:00 10/24/24 05:51 Insulin Human Regular ACHS SC 10/21/24 17:00 10/23/24 05:28 Dextrose 50 ml UD PRN IV 10/21/24 14:45 Aspirin 81 mg DAILY PO 10/22/24 10:00 10/24/24 10:49 Ticagrelor 90 mg BID PO 10/21/24 22:00 10/24/24 10:49 Norepinephrine Bitartrate 32 mg/ Sodium Chloride 250 ml @ 0.938 mls/ hr Q24H IV 10/21/24 17:00 10/22/24 08:42 Vasopressin 20 units/Sodium Chloride 100 ml @ 9 mls/hr Q11H7M IV 10/21/24 17:00 Vancomycin HCl 0 ml @ 0 mls/hr UD IV 10/22/24 11:15 Piperacillin Sod/ Tazobactam Sod 100 ml @ 25 mls/hr Q6HR IV 10/22/24 12:00 10/24/24 05:43 Enteral Nutritional Formula 1,000 ml 30ML/HR GT 10/22/24 11:15 10/23/24 13:38 Docusate Sodium 100 mg BID GT 10/22/24 22:00 10/23/24 08:57 Atorvastatin Calcium 40 mg HS PO 10/22/24 22:00 10/23/24 21:10 Pantoprazole Sodium 40 mg BID IV 10/22/24 22:00 10/24/24 09:47 Vancomycin HCl 250 ml @ 200 mls/hr Q12H IV 10/23/24 05:00 10/24/24 05:08 Sodium Chloride 10 ml QSHIFT@10,22 IV 10/24/24 10:00 10/24/24 09:48 Examination: GENERAL:Abnormal, LUNGS:Abnormal (mechanically ventilated ), CVS:Normal, NEURO:Abnormal (chemically sedated ) laboratory and microbiology Laboratory Tests 10/24/24 03:44 Test 10/24/24 03:44 Range/Units Serum Glucose 149 H 74-106 mg/dL Problem List/Assessment/Plan Problem List/Assessment/Plan Non ST-elevation myocardial infarction s/p PCI to the LCx x 1 CATALINO Pulseless ventricular fibrillation arrest Sustained ventricular tachycardia status post direct current cardioversion Cardiopulmonary arrest with ROSC Coronary artery disease status post PTCA x2 CATALINO, on ASA Ischemic cardiomyopathy with LVEF <20-25% Thrombocytopenia Hypertension Dyslipidemia Pre-DM HX of tobacco use Alcohol dependance Plan/Recommendation (Dr. Davis) The patient with ventricular tachycardia arrest underwent a cardiac catheterization and coronary angiogram with successful balloon angioplasty and stent placement of the LCx. Intra-procedure the patient developed an upper/lower GI bleed. Transthoracic echocardiogram revealed an EF of 20-25% with severe global hypokinesis of the inferior and lateral nicholson. Consider GDMT with optimal BP. Continue DAPT therapy as discussed with Dr. Davis. Continue lipid-lowering agent. He now remains in normal sinus rhythm, continue Amiodarone. Monitor H&H and platelet count closely. Continue GI recommendations. DVT/VTE prophylaxis with SCDs. Patient being weaned off of sedation for possible CPAP attempt tomorrow per RN. Thank you for allowing us to participate in this patient's care. Please call if you have any questions or concerns. Critical care time: 30 min. This medical document was created using an electronic medical record system with voice recognition software and computerized dictation system. Although this document has been carefully reviewed, there might still be some phonetic and typographical errors. Occasional wrong-word or ``sound-alike substitutions may have occurred due to the inherent limitations of voice recognition software. These areas are purely typographical due to imperfections of the software programs and do not reflect any compromise in the patient's medical care. Please read the chart carefully and recognize, using context, where these substitutions have occurred. Plan discussed with: Other (Bedside RN ) Date of Service: Oct 24, 2024 Billing Provider: YANNICK VILLALTA Common Visit Codes: [id number] CARE 30-74 MIN YANNICK VILLALTA Oct 24, 2024 11:09
[2024-10-24 12:46] LABS: Albumin 3.3 g/dL (3.2-4.8); Bilirubin, Direct 0.2 mg/dL (<0.3); Bilirubin, Total 0.4 mg/dL (0.2-1.0); Total Protein 5.5 g/dL (5.7-8.2)
[2024-10-24] MEDS: AMIODARONE HCL 200 MG TAB PO ONE (13:45)
--- NOTE | 2024-10-24 17:09 | DVHPN2 ---
Progress Note Date Seen: Oct 24, 2024 Resident Creating Document: TY REYNOLDS RESIDENT Medical Necessity Reason Pt with a Central, PICC or Fol: Yes The following are medically ne: Central Line, Smith Catheter Subjective Review of Systems This is a 54-year-old man who presented to the emergency room via EMS as a secure code blue secondary to cardiopulmonary arrest. The patient was found unresponsive by coworkers at an imaging center with CPR initiated and AED shocks x 2 delivered prior to EMS arrival. ACLS protocol was implemented by EMS including 4 rounds of Epinephrine. ROSC was subsequently achieved with the patient being emergently endotracheally intubated upon arrival to the Emergency Room. During admission the patient transitioned from a sinus rhythm to sustained pulseless ventricular tachycardia undergoing defibrillation at 200 J with successful ROSC. Pt had ischemia present to anteroseptal and inferior wall. Post 2nd cardiac arrest 12 lead electrocardiogram revealed global ischemia mostly to inferior wall. Troponin levels are trending up with latest in the 200s ng/L. Per , the patient complaint of SOB, chest discomfort, and poor appetite yesterday. Pt underwent urgent cardiac catheterization with angioplasty and stent placement EF 25 % GI was consulted due to moderate diarrhoea requiring rectal tube followed by rectal bleeding. Nurse reports a small amount of bleeding which mostly appears old. Hb is stable at 21 ! Pt is currently intubated sedated in director of cath lab ICU Patient seen examined at the bedside. Tolerating enteral feeding. Emesis has resolved. Objective vital signs Vital Sign Date Time Temp Pulse Resp B/P (MAP) Pulse Ox O2 Delivery O2 Flow Rate FiO2 10/24/24 16:00 24 100 Mechanical Ventilator+ 30 30 10/24/24 16:00 68 10/24/24 16:00 131/78 (95) 10/24/24 15:30 98.8 209.8 Total Intake and Output 10/23/24 10/23/24 10/24/24 15:00 23:00 07:00 Intake Total 552.415 ml 560.84 ml 901.64 ml Output Total 725 ml 655 ml Balance 552.415 ml -164.16 ml 246.64 ml medications Current Medications Medications Dose Ordered Sig/Abundio Route Start Time Stop Time Status Last Admin Dose Admin Propofol 100 ml @ 2.4 mls/hr Q24H IV 10/21/24 10:45 10/24/24 12:02 16.8 MLS/HR Midazolam HCl 50 ml @ 1 mls/hr Q24H IV 10/21/24 11:00 10/23/24 06:36 7 MLS/HR Fentanyl Citrate 250 ml @ 2.5 mls/hr Q24H IV 10/21/24 11:00 10/24/24 01:20 2.5 MLS/HR Diagnostic Test (Pha) 1 strip ACHS 10/21/24 17:00 10/24/24 11:17 1 STRIP Insulin Human Regular ACHS SC 10/21/24 17:00 10/24/24 11:19 2 UNITS Dextrose 50 ml UD PRN IV 10/21/24 14:45 Aspirin 81 mg DAILY PO 10/22/24 10:00 10/24/24 10:49 81 MG Ticagrelor 90 mg BID PO 10/21/24 22:00 10/24/24 10:49 90 MG Norepinephrine Bitartrate 32 mg/ Sodium Chloride 250 ml @ 0.938 mls/ hr Q24H IV 10/21/24 17:00 10/22/24 08:42 3.75 MLS/HR Vasopressin 20 units/Sodium Chloride 100 ml @ 9 mls/hr Q11H7M IV 10/21/24 17:00 Vancomycin HCl 0 ml @ 0 mls/hr UD IV 10/22/24 11:15 Piperacillin Sod/ Tazobactam Sod 100 ml @ 25 mls/hr Q6HR IV 10/22/24 12:00 10/24/24 11:42 25 MLS/HR Enteral Nutritional Formula 1,000 ml 30ML/HR GT 10/22/24 11:15 10/23/24 13:38 1,000 ML Docusate Sodium 100 mg BID GT 10/22/24 22:00 10/23/24 08:57 100 MG Atorvastatin Calcium 40 mg HS PO 10/22/24 22:00 10/23/24 21:10 40 MG Pantoprazole Sodium 40 mg BID IV 10/22/24 22:00 10/24/24 09:47 40 MG Vancomycin HCl 250 ml @ 200 mls/hr Q12H IV 10/23/24 05:00 10/24/24 16:38 200 MLS/HR Sodium Chloride 10 ml QSHIFT@10,22 IV 10/24/24 10:00 10/24/24 09:48 10 ML Amiodarone HCl 200 mg Q12HR PO 10/24/24 22:00 Examination Patient lying in bed, intubated and mechanically ventilated General: Well-built, afebrile, palor, mucosae are moist Cardiovascular: Regular S1 and S2. No murmurs, gallops or rubs. No JVD elevation. No pedal edema Respiratory: Normal B/L air entry on room air. Clear lung sounds on auscultation Abdomen: Soft, nontender, nondistended, normoactive bowel sounds, no rebound tenderness, no organomegaly, no masses Genitourinary: Deferred MSK/skin: Skin is dry and warm laboratory and microbiology Laboratory Tests 10/24/24 03:44 Test 10/24/24 03:44 Range/Units Serum Glucose 149 H 74-106 mg/dL Microbiology Date/Time Source Procedure Growth Status 10/22/24 18:25 Nose MRSA Screen - Final Complete 10/21/24 14:56 Blood Blood Culture - Preliminary NO GROWTH AFTER 72 HOURS OF INCUBATION. 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 Continue supportive management for now. Continue enteral feeding, advanced as tolerated. WBC trending down, H&H trending down. Pantoprazole 40 mg IV b.i.d. Negative Hepatitis panel Patient is currently on Brilinta and aspirin Avoid anticoagulation Overall his prognosis is guarded We will review history with his if he has had a previous colonoscopy Attempted to call family, unable to reach out Case discussed with nurse and Dr. Coto Plan discussed with: Patient TY REYNOLDS RESIDENT Oct 24, 2024 17:09
--- NOTE | 2024-10-24 22:24 | DVHPNRES ---
Progress Note Date Seen: Oct 24, 2024 Resident Creating Document: RIKI CORDERO RESIDENT Medical Necessity Reason Pt with a Central, PICC or Fol: Yes The following are medically ne: Central Line, Smith Catheter Subjective Review of Systems pt seen and examined at bedside sedated and intubated on [facility] vent ROS could not be obtained as pt is sedated Objective vital signs Vital Sign Date Time Temp Pulse Resp B/P (MAP) Pulse Ox O2 Delivery O2 Flow Rate FiO2 10/24/24 20:33 67 26 131/80 (97) 98 30 10/24/24 18:45 98.6 209.5 10/24/24 17:39 Mechanical Ventilator+ Total Intake and Output 10/23/24 10/23/24 10/24/24 15:00 23:00 07:00 Intake Total 552.415 ml 560.84 ml 901.64 ml Output Total 725 ml 655 ml Balance 552.415 ml -164.16 ml 246.64 ml medications Current Medications Medications Dose Ordered Sig/Abundio Route Start Time Stop Time Status Last Admin Dose Admin Propofol 100 ml @ 2.4 mls/hr Q24H IV 10/21/24 10:45 10/24/24 17:24 16.8 MLS/HR Midazolam HCl 50 ml @ 1 mls/hr Q24H IV 10/21/24 11:00 10/23/24 06:36 7 MLS/HR Fentanyl Citrate 250 ml @ 2.5 mls/hr Q24H IV 10/21/24 11:00 10/24/24 01:20 2.5 MLS/HR Diagnostic Test (Pha) 1 strip ACHS 10/21/24 17:00 10/24/24 16:46 1 STRIP Insulin Human Regular ACHS SC 10/21/24 17:00 10/24/24 16:46 2 UNITS Dextrose 50 ml UD PRN IV 10/21/24 14:45 Aspirin 81 mg DAILY PO 10/22/24 10:00 10/24/24 10:49 81 MG Ticagrelor 90 mg BID PO 10/21/24 22:00 10/24/24 10:49 90 MG Norepinephrine Bitartrate 32 mg/ Sodium Chloride 250 ml @ 0.938 mls/ hr Q24H IV 10/21/24 17:00 10/22/24 08:42 3.75 MLS/HR Vasopressin 20 units/Sodium Chloride 100 ml @ 9 mls/hr Q11H7M IV 10/21/24 17:00 Vancomycin HCl 0 ml @ 0 mls/hr UD IV 10/22/24 11:15 Piperacillin Sod/ Tazobactam Sod 100 ml @ 25 mls/hr Q6HR IV 10/22/24 12:00 10/24/24 17:53 25 MLS/HR Enteral Nutritional Formula 1,000 ml 30ML/HR GT 10/22/24 11:15 10/23/24 13:38 1,000 ML Docusate Sodium 100 mg BID GT 10/22/24 22:00 10/23/24 08:57 100 MG Atorvastatin Calcium 40 mg HS PO 10/22/24 22:00 10/23/24 21:10 40 MG Pantoprazole Sodium 40 mg BID IV 10/22/24 22:00 10/24/24 09:47 40 MG Vancomycin HCl 250 ml @ 200 mls/hr Q12H IV 10/23/24 05:00 10/24/24 16:38 200 MLS/HR Sodium Chloride 10 ml QSHIFT@10,22 IV 10/24/24 10:00 10/24/24 09:48 10 ML Amiodarone HCl 200 mg Q12HR PO 10/24/24 22:00 Examination Examination General Appearance: Sedated and intubated HEENT: EOMI Respiratory: Clear to auscultation, Normal air movement Cardiovascular: Regular rate, Normal S1, Normal S2 Abdominal: Normal bowel sounds Extremities: No cyanosis, No edema, Normal pulses, No tenderness/swelling Skin: No rashes, No breakdown Neuro: Sedated intubated laboratory and microbiology Laboratory Tests 10/24/24 03:44 Test 10/24/24 03:44 Range/Units Serum Glucose 149 H 74-106 mg/dL Microbiology Date/Time Source Procedure Growth Status 10/22/24 18:25 Nose MRSA Screen - Final Complete 10/21/24 14:56 Blood Blood Culture - Preliminary NO GROWTH AFTER 72 HOURS OF INCUBATION. Resulted 10/21/24 10:25 Voided Urine Urine Culture - Final Complete 10/21/24 10:24 Sputum Gram Stain - Final Complete 10/21/24 10:24 Respiratory Culture - Final Escherichia coli Complete Labs and/or images reviewed: Labs reviewed by me, Image(s) reviewed by me Problem List/Assessment/Plan Problem List/Assessment/Plan Assessment/plan Neurology # sedation Versed, propofol, fentanyl Cardiology # shock likely cardiogenic Currently on norepinephrine drip # cardiac arrest status post ROSC due to ? Arrhythmia ? ACS -had cardiac arrest 2 times -head CT # acute on chronic heart failure with reduced ejection fraction ischemic cardiopathy, ? Alcoholic cardiomyopathy Echocardiogram Currently on IV norepinephrine drip # coronary artery disease, history of [place] status post PCI 2 times -continue aspirin and Brilinta -continue statin # NSTEMI status post cardiac catheterization and PCI -continue statins Continue aspirin and Brilinta -cardiac catheterization report: Bilateral cine coronary angiography. Left ventriculography. PTCA and stenting of the circumflex coronary artery. #V-tach, sustained, currently sinus rhythm -pt had cardioversion -amiodarone drip switched to oral amiodarone -keep potassium >4, mag >2 Respiratory # acute hypoxic respiratory failure due to cardiac arrest Currently on mechanical ventilator #? acute exacerbation of COPD -currently on mechanical ventilator GI # GI bleed, upper GI/lower GI bleed, history of upper GI ulcers as per family, history of hemorrhoids -IV Protonix b.i.d. Discontinue octreotide drip considering no evidence of cirrhosis on imaging GI on board # history of gastric/duodenal ulcers -IV Protonix b.i.d. # history of hemorrhoids Monitor CBC # transaminitis likely due to alcohol use disorder -monitor Infectious disease # sepsis with septic shock likely due to? Aspiration pneumonia, the source of infection not ruled out yet IV antibiotic Panculture Hematology # polycythemia likely secondary to excessive smoking Monitor CBC # coagulopathy -monitor # thrombocytopenia, likely chronic as per past medical history -Monitor Nephrology # metabolic acidosis with compensatory respiratory alkalosis Monitor ABG in the a.m. Psychiatry # tobacco use disorder We will counselor camp on cessation once he is alert # alcohol use disorder We will counselor camp on cessation once he is alert # cannabis use disorder We will counselor camp on cessation once patient is alert DVT prophylaxis Lovenox Currently on hold because of GI bleed SCDs PUD prophylaxis IV Protonix 40 mg b.i.d. Nutrition started on enteral nutrition Bowel regimen colace Lines Right femoral triple-lumen catheter Right femoral A-line ordered PICC line Drips Norepinephrine Fentanyl Propofol Versed Code status discussed with the family for greater than 21 minutes, full code Case discussion with Dr. Otto Critical care time excluding procedures 67 minutes CPAP trial AM Plan discussed with: Other My Orders My Orders Orders - RIKI CORDERO Procedure Category Date Status Time Communication Order ORDERS 10/24/24 Transmitted 09:20 Creatinine LAB 10/25/24 Verified 16:00 Vancomycin,Trough LAB 10/25/24 Verified 16:00 Vancomycin Per ANGEL 10/25/24 In Process Pharmacy Protoc 17:00 Magnesium LAB 10/25/24 Verified 04:00 Chest Portable XY 10/25/24 Logged 04:00 Abg W/ Co-Ox RT 10/25/24 Logged 04:00 Cpap Trial For Am ORDERS 10/24/24 Transmitted 22:18 Cpap/Sed Vacation Med ORDERS 10/24/24 Transmitted Weaning 22:18 RIKI CORDERO RESIDENT Oct 24, 2024 22:24
[2024-10-24] MEDS: AMIODARONE HCL 200 MG TAB PO SCH (22:25)
--- NOTE | 2024-10-24 23:03 | DVHTSRES ---
Transfer Summary Transfer Summary Resident Creating Document: RIKI CORDERO RESIDENT Date of Admission Oct 21, 2024 at 15:41 Brief Hx & Hospital Course: 54-year-old male patient with past medical history of coronary artery disease status post PCI 2 x 20 and 2020, COPD, gastric and duodenal ulcer, hemorrhoids, tobacco use disorder, alcohol use disorder, cannabis use disorder presented with complaints of cardiac arrest. As per family patient was at work, had chest pain and had cardiac arrest, EMS was called and cardiopulmonary resuscitation was started, patient got ROSC after two rounds of CPR and identified rhythm was asystole. Patient presented to the hospital intubated and patient did not another cardiac arrest, identified rhythm was VFib after which defibrillation was done and patient had two rounds of CPR and patient got ROSC. Cardiology was consulted. Patient was started on sedative medications and vasopressors/inotropes. Patient underwent coronary angiogram with procedures done: bilateral sign coronary angiography, left ventriculography and PTCA and stenting of circumflex coronary artery. Patient was started on IV amiodarone. Patient initially had white cell count elevation after which patient was started on IV antibiotics for possible sepsis likely due to aspiration pneumonia. He was started on aspirin and berlinta. Echocardiogram was done, which revealed ejection fraction of 25-30%. Patient was started on statins. Patient had episode of V-tach after which patient had synchronized cardioversion. During the cardiac catheterization patient had episode of rectal bleeding after which patient was started on IV Protonix b.i.d. and GI was consulted. Later patient d id not have any further active bleeding. Patient was started on enteral feeding. Family at bedside was updated on the condition of the patient. After Cardiology clearance, patient will be planned to have a CPAP trial tomorrow. Care services will be transferred to the upcoming ICU resident team including Dr Romero, Dr Balderas and Dr Hanks. RIKI CORDERO RESIDENT Oct 24, 2024 23:03
[2024-10-25] VITALS (108 sets, daily range): BP systolic 95–160; BP diastolic 51–87; PULSE 60–76; RESP 10–31; TEMP 97.7–99.1; O2SAT 93–100
[2024-10-25 04:26] LABS: Basophils # (auto) 0 10 ^3/uL (0-0.2); Basophils % (auto) 0.3 % (0.0-2.0); Eosinophils # (auto) 0.1 10 ^3/uL (0-0.8); Eosinophils % (auto) 0.8 % (0.0-7.0); Hematocrit 49.7 % (41.0-53.0); Hemoglobin 16.7 g/dL (13.5-17.5); Lymphocytes # (auto) 0.6 10 ^3/uL (0.4-5.4); Mean Corpuscular Hemoglobin 31.7 pg (28.0-32.0); Mean Corpuscular Hgb Conc. 33.6 g/dL (32.0-36.0); Mean Corpuscular Volume 94.1 fL (80.0-100.0); Monocytes # (auto) 0.9 10 ^3/uL (0-1.3); Monocytes % (auto) 7.7 % (0.0-12.0); Neutrophils # (auto) 10.6 10 ^3/uL (1.6-8.6); Neutrophils % (auto) 86.2 % (37.0-80.0); Platelet Count (auto) 95 10^3/uL (140-450); Red Blood Cells 5.28 10^6/uL (4.5-5.90); Red Cell Distribution Width 14.8 % (11.8-14.3); White Blood Cell 12.3 10^3/uL (4.4-10.8)
[2024-10-25 04:38] LABS: Alanine Aminotransferase 22 U/L (7-40); Albumin 3.4 g/dL (3.2-4.8); Alkaline Phosphatase 49 U/L (46-116); Anion Gap 9 (5-15); BUN/Creatinine Ratio 9.9 (10.0-20.0); Bilirubin, Total 0.6 mg/dL (0.2-1.0); Calcium 8.8 mg/dL (8.7-10.4); Carbon Dioxide 26 mmol/L (20-31); Chloride 105 mmol/L (98-107); Sodium 140 mmol/L (136-145)
[2024-10-25 04:39] LABS: Potassium 3.3 mmol/L (3.5-5.1)
[2024-10-25 04:40] LABS: Aspartate Aminotransferase 109 U/L (13-40); Blood Urea Nitrogen 7 mg/dL (9-23); Glucose 120 mg/dL (74-106); Total Protein 5.7 g/dL (5.7-8.2)
[2024-10-25 07:15] LABS: Base Excess 2.9 mmol/L (-2.0-3.0)
--- NOTE | 2024-10-25 08:51 | DVH ---
EXAM: XR Chest, 1 View CLINICAL INDICATION: mech vent TECHNIQUE: Frontal view of the chest. COMPARISON: XY CHEST PORTABLE on DOS: 10/24/24, XY CHEST PORTABLE on DOS: 10/23/24, XY CHEST PORTABLE o n DOS: 10/22/24 FINDINGS: LUNGS AND PLEURAL SPACES: Bibasilar atelectasis scarring. HEART: Unremarkable. No cardiomegaly. MEDIASTINUM: Unremarkable. Normal mediastinal contour. BONES/JOINTS: Unremarkable. No acute fracture. TUBES, LINES AND DEVICES: Right-sided Mediport with the distal tip in the SVC. No pneumothorax. Th e endotracheal tube (ETT) is in satisfactory position. Enteric tube tip in the stomach. OTHER FINDINGS: . . . .. IMPRESSION: Bibasilar atelectasis scarring.
--- NOTE | 2024-10-25 08:56 | DVH ---
Exam: US US GUIDED VASCULAR ACCESS Date: 10/24/2024 08:27 AM Clinical History: PICC placement Comparison: None Findings: Targeted sonographic evaluation of the bascillic vein was obtained utilizing grayscale and color Dop pler imaging. IMPRESSION: Sonographic assistance for central line placement. Please refer to procedural report for detailed fin dings.
--- NOTE | 2024-10-25 09:37 | DVHPN2 ---
Consult Progress Note Subjective Review of Systems: Deferred (Currently intubated and sedated) Objective vital signs Vital Sign Date Time Temp Pulse Resp B/P (MAP) Pulse Ox O2 Delivery O2 Flow Rate FiO2 10/25/24 07:37 69 30 147/79 (101) 96 30 10/25/24 06:45 98.1 208.6 10/25/24 06:00 Mechanical Ventilator+ Total Intake and Output 10/24/24 10/24/24 10/25/24 15:00 23:00 07:00 Intake Total 660.34 ml 1057.63 ml 712.4 ml Output Total 550 ml 700 ml Balance 660.34 ml 507.63 ml 12.4 ml medications Current Medications Medications Dose Ordered Sig/Abundio Route Start Time Stop Time Status Last Admin Dose Admin Propofol 100 ml @ 2.4 mls/hr Q24H IV 10/21/24 10:45 10/25/24 06:31 14.4 MLS/HR Midazolam HCl 50 ml @ 1 mls/hr Q24H IV 10/21/24 11:00 10/23/24 06:36 7 MLS/HR Fentanyl Citrate 250 ml @ 2.5 mls/hr Q24H IV 10/21/24 11:00 10/25/24 01:00 12.5 MLS/HR Diagnostic Test (Pha) 1 strip ACHS 10/21/24 17:00 10/25/24 06:27 1 STRIP Insulin Human Regular ACHS SC 10/21/24 17:00 10/24/24 16:46 2 UNITS Dextrose 50 ml UD PRN IV 10/21/24 14:45 Aspirin 81 mg DAILY PO 10/22/24 10:00 10/24/24 10:49 81 MG Ticagrelor 90 mg BID PO 10/21/24 22:00 10/24/24 22:24 90 MG Norepinephrine Bitartrate 32 mg/ Sodium Chloride 250 ml @ 0.938 mls/ hr Q24H IV 10/21/24 17:00 10/22/24 08:42 3.75 MLS/HR Vasopressin 20 units/Sodium Chloride 100 ml @ 9 mls/hr Q11H7M IV 10/21/24 17:00 Vancomycin HCl 0 ml @ 0 mls/hr UD IV 10/22/24 11:15 Piperacillin Sod/ Tazobactam Sod 100 ml @ 25 mls/hr Q6HR IV 10/22/24 12:00 10/25/24 06:27 25 MLS/HR Enteral Nutritional Formula 1,000 ml 30ML/HR GT 10/22/24 11:15 10/23/24 13:38 1,000 ML Docusate Sodium 100 mg BID GT 10/22/24 22:00 10/24/24 22:25 100 MG Atorvastatin Calcium 40 mg HS PO 10/22/24 22:00 10/24/24 22:24 40 MG Pantoprazole Sodium 40 mg BID IV 10/22/24 22:00 10/24/24 22:25 40 MG Vancomycin HCl 250 ml @ 200 mls/hr Q12H IV 10/23/24 05:00 10/25/24 04:11 200 MLS/HR Sodium Chloride 10 ml QSHIFT@10,22 IV 10/24/24 10:00 10/24/24 22:26 10 ML Amiodarone HCl 200 mg Q12HR PO 10/24/24 22:00 10/24/24 22:25 200 MG Potassium Chloride 100 ml @ 50 mls/hr Q2H IV 10/25/24 07:00 10/25/24 10:59 Examination: NECK:Abnormal (Sedated), LUNGS:Abnormal (Continues to be intubated on vent with FiO2 30%), CVS:Normal (Telemetry reviewed consistent with sinus rhythm 71 beats per minute.) laboratory and microbiology Laboratory Tests 10/25/24 03:48 Test 10/25/24 03:48 Range/Units Serum Glucose 120 H 74-106 mg/dL Problem List/Assessment/Plan Problem List/Assessment/Plan Problem List/Assessment/Plan Non ST-elevation myocardial infarction s/p PCI to the LCx x 1 CATALINO Pulseless ventricular fibrillation arrest Sustained ventricular tachycardia status post direct current cardioversion Cardiopulmonary arrest with ROSC Coronary artery disease status post PTCA x2 CATALINO, on ASA Ischemic cardiomyopathy with LVEF <20-25% Thrombocytopenia Hypertension Dyslipidemia Pre-DM HX of tobacco use Alcohol dependance Plan/Recommendation (Dr. Davis) Case Discussed with Dr Davis. . VFib arrest s/p cardiac catheterization and coronary angiogram with successful balloon angioplasty and stent placement of the LCx. Echo reviewed and shows EF of 20-25% with severe global hypokinesis of the inferior and lateral nicholson. Consider GDMT with optimal BP. Continue DAPT therapy as discussed with Dr. Davis. Upper GI bleed, monitor H&H, transfuse for hemoglobin less than 7. Hemoglobin stable at 16.7 hematocrit 49.7. Platelets 95 today. GI on board. Continue lipid-lowering agent. Continues to be in sinus rhythm. continue Amiodarone. Continue GI recommendations. DVT/VTE prophylaxis with SCDs. Patient being weaned off of sedation for possible CPAP trial today. Thank you for allowing us to participate in this patient's care. Please call if you have any questions or concerns. Critical care, time spent: 48 minutes This medical document was created using an electronic medical record system with voice recognition software and computerized dictation system. Although this document has been carefully reviewed, there might still be some phonetic and typographical errors. Occasional wrong-word or ``sound-alike substitutions may have occurred due to the inherent limitations of voice recognition software. These areas are purely typographical due to imperfections of the software programs and do not reflect any compromise in the patient's medical care. Please read the chart carefully and recognize, using context, where these substitutions have occurred. Thank you for allowing me to participate in the management of this patient. The treatment plan was discussed with and agreed upon by patient/family including requesting consultants and ordering of imaging/procedures. Plan discussed with: Other (Bedside RN) Date of Service: Oct 25, 2024 Billing Provider: INDIO DAVIS Sr., MD Common Visit Codes: 16301-[id number] INP/OBS CARE(HIGH), [id number] CARE 30-74 MIN JANUARY [facility] Oct 25, 2024 09:37
[2024-10-25] MEDS: POTASSIUM CHL 20MEQ/100ML 100 ML IV SCH (09:50)
--- NOTE | 2024-10-25 12:54 | DVHPN2 ---
Subjective Intubated, and sedated Reviewed: Care Plan, H&P, Labs, Medications, Previous Orders, Radiology, Other (Consultations) Changes from previous H/P or p: No Changes Objective Vitals Vital Signs Date Time Temp Pulse Resp B/P (MAP) Pulse Ox O2 Delivery O2 Flow Rate FiO2 10/25/24 12:26 73 30 124/70 (88) 96 30 10/25/24 06:45 98.1 208.6 10/25/24 06:00 Mechanical Ventilator+ Intake/Output Intake and Output 10/25/24 07:00 Intake Total 2430.37 ml Output Total 1250 ml Balance 1180.37 ml Intake Oral 561 ml IV Total 1689.37 ml Tube Feeding 180 ml Output Urine Total 1250 ml Stool Total 0 ml General Appearance: Other (Intubated, and sedated) HEENT: Atraumatic Lungs: Other (MV sounds) Cardiovascular: Regular rate, Normal S1, Normal S2 Abdomen: Soft, Other (continuous abdominal wall movements) Genitourinary: Other (Smith's) Neuro: Other (Sedated) Psych/Mental Status: Other (Sedated) Medications Current Medications Medications Dose Ordered Sig/Abundio Route Start Time Stop Time Status Last Admin Dose Admin Propofol 100 ml @ 2.4 mls/hr Q24H IV 10/21/24 10:45 10/25/24 06:31 14.4 MLS/HR Midazolam HCl 50 ml @ 1 mls/hr Q24H IV 10/21/24 11:00 10/23/24 06:36 7 MLS/HR Fentanyl Citrate 250 ml @ 2.5 mls/hr Q24H IV 10/21/24 11:00 10/25/24 01:00 12.5 MLS/HR Diagnostic Test (Pha) 1 strip ACHS 10/21/24 17:00 10/25/24 06:27 1 STRIP Insulin Human Regular ACHS SC 10/21/24 17:00 10/24/24 16:46 2 UNITS Dextrose 50 ml UD PRN IV 10/21/24 14:45 Aspirin 81 mg DAILY PO 10/22/24 10:00 10/25/24 10:53 81 MG Ticagrelor 90 mg BID PO 10/21/24 22:00 10/25/24 10:52 90 MG Norepinephrine Bitartrate 32 mg/ Sodium Chloride 250 ml @ 0.938 mls/ hr Q24H IV 10/21/24 17:00 10/22/24 08:42 3.75 MLS/HR Vasopressin 20 units/Sodium Chloride 100 ml @ 9 mls/hr Q11H7M IV 10/21/24 17:00 Vancomycin HCl 0 ml @ 0 mls/hr UD IV 10/22/24 11:15 Piperacillin Sod/ Tazobactam Sod 100 ml @ 25 mls/hr Q6HR IV 10/22/24 12:00 10/25/24 06:27 25 MLS/HR Enteral Nutritional Formula 1,000 ml 30ML/HR GT 10/22/24 11:15 10/23/24 13:38 1,000 ML Docusate Sodium 100 mg BID GT 10/22/24 22:00 10/25/24 10:52 100 MG Atorvastatin Calcium 40 mg HS PO 10/22/24 22:00 10/24/24 22:24 40 MG Pantoprazole Sodium 40 mg BID IV 10/22/24 22:00 10/25/24 10:52 40 MG Vancomycin HCl 250 ml @ 200 mls/hr Q12H IV 10/23/24 05:00 10/25/24 04:11 200 MLS/HR Sodium Chloride 10 ml QSHIFT@10,22 IV 10/24/24 10:00 10/25/24 10:53 10 ML Amiodarone HCl 200 mg Q12HR PO 10/24/24 22:00 10/25/24 10:53 200 MG Laboratory Results Laboratory Tests 10/25/24 03:48 Chemistry Test 10/25/24 03:48 Albumin 3.4 g/dL (3.2-4.8) Calcium Level 8.8 mg/dL (8.7-10.4) Magnesium Level 2.0 mg/dL (1.6-2.6) Total Protein 5.7 g/dL (5.7-8.2) LFT Test 10/25/24 03:48 Alanine Aminotransferase (ALT) 22 U/L (7-40) Alkaline Phosphatase 49 U/L (46-116) Aspartate Amino Transferase (AST) 109 U/L (13-40) H Total Bilirubin 0.6 mg/dL (0.2-1.0) Urinalysis Test 10/21/24 10:25 Urine Color Yellow (Yellow) Urine Clarity Turbid (Clear) H Urine pH 6.5 (5.0-9.0) Urine Specific [place] 1.016 (1.001-1.035) Urine Protein 1+ (Negative) H Urine Ketones Trace (Negative) Urine Blood Trace /uL (Negative) H Urine Nitrite Negative (Negative) Urine Bilirubin Negative (Negative) Urine Urobilinogen 2 mg/dL (Negative) H Urine Leukocyte Esterase 1+ /uL (Negative) Urine RBC 15 /hpf (0 - 3) Urine Microscopic WBC 7 /HPF (0-3) H Urine Squamous Epithelial Cells None seen /hpf (<5) Urine Bacteria None seen /hpf (None Seen) Urine Mucus Few (None Seen) Urine Glucose Normal mg/dL (Normal) Blood Gas Results Test 10/25/24 06:53 Arterial Blood pH 7.524 (7.350-7.450) FiO2 % 30.0 Microbiology Microbiology Date/Time Source Procedure Growth Status 10/22/24 18:25 Nose MRSA Screen - Final Complete 10/21/24 14:56 Blood Blood Culture - Preliminary NO GROWTH AFTER 72 HOURS OF INCUBATION. Resulted 10/21/24 10:25 Voided Urine Urine Culture - Final Complete 10/21/24 10:24 Sputum Gram Stain - Final Complete 10/21/24 10:24 Respiratory Culture - Final Escherichia coli Complete Labs and/or images reviewed: Labs reviewed by me, Image(s) reviewed by me Assessment/Plan Assessment/Plan Covering Dr. Hanks: #Acute hypoxic/metabolic/toxic encephalopathy in the setting of cardiac arrest, and septic shock #Acute hypoxic respiratory failure due to E coli pneumonia #Septic shock with leukocytosi, and lactic acidosis due to E coli pneumonia #NSTEMI s/p PCI to the LCx x 1 CATALINO; this admission #Pulseless ventricular fibrillation arrest #Sustained ventricular tachycardia status post direct current cardioversion #Cardiopulmonary arrest with ROSC #CAD status post PTCA x2 CATALINO; before this admission #Ischemic cardiomyopathy with LVEF <20-25% #Thrombocytopenia #Hypertensive heart disease #Dyslipidemia #Pre-DM #Polysubstance use disorder; alcohol, marijuana, and tobacco #Upper GI bleed; stopped #Elevated LFTs secondary to ischemic liver #HIEN due to VMN in the setting of shock #Bilateral atelectasis Pulmonology, neurology, GI, and cardiology are following Continue broad-spectrum IV antibiotics; will keep on IV vancomycin for now Continue oxygen therapy via MV as indicated; increasing requirement Monitor electrolytes closely and replace/correct as needed Avoid hepato/nephrotoxic agents Reviewed available cultures, labs, ABGs, and imaging studies including CXRs, and head CT Telemetry Continue aspirin, clopidogrel, and statin Continue close monitoring Goals of care discussed with the patient's son for 20 minutes; full code. 120 minutes of critical care time. Late Entry. This medical document was created using an electronic medical record system with computerized dictation system. Although this document has been carefully reviewed, there might still be some phonetic and typographical errors. These areas are purely typographical due to imperfections of the software programs, and do not reflect any compromise in the patient's medical care. Plan discussed with: Son, Other (Nurse) Date of Service: Oct 25, 2024 Billing Provider: AGUILAR RAI MD Common Visit Codes: 09904-[id number] CARE 30-74 MIN (120 minutes), 74310-OACANSFO CARE-EACH +30MIN Secondary Visit Codes: [id number] CARE PLAN 30 MINUTES (20 minutes) AGUILAR RAI MD Oct 25, 2024 12:54
--- NOTE | 2024-10-25 15:43 | DVHPN2 ---
Progress Note Date Seen: Oct 25, 2024 Resident Creating Document: TY REYNOLDS RESIDENT Medical Necessity Reason Pt with a Central, PICC or Fol: Yes The following are medically ne: Central Line, Smith Catheter Subjective Review of Systems Review of Systems This is a 54-year-old man who presented to the emergency room via EMS as a secure code blue secondary to cardiopulmonary arrest. The patient was found unresponsive by coworkers at an imaging center with CPR initiated and AED shocks x 2 delivered prior to EMS arrival. ACLS protocol was implemented by EMS including 4 rounds of Epinephrine. ROSC was subsequently achieved with the patient being emergently endotracheally intubated upon arrival to the Emergency Room. During admission the patient transitioned from a sinus rhythm to sustained pulseless ventricular tachycardia undergoing defibrillation at 200 J with successful ROSC. Pt had ischemia present to anteroseptal and inferior wall. Post 2nd cardiac arrest 12 lead electrocardiogram revealed global ischemia mostly to inferior wall. Troponin levels are trending up with latest in the 200s ng/L. Per , the patient complaint of SOB, chest discomfort, and poor appetite yesterday. Pt underwent urgent cardiac catheterization with angioplasty and stent placement EF 25 % GI was consulted due to moderate diarrhoea requiring rectal tube followed by rectal bleeding. Nurse reports a small amount of bleeding which mostly appears old. Hb is stable at 21 ! 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 Tolerating enteral feeding. Emesis has resolved. Family at bedside, no history of colonoscopy. Objective vital signs Vital Sign Date Time Temp Pulse Resp B/P (MAP) Pulse Ox O2 Delivery O2 Flow Rate FiO2 10/25/24 14:39 67 30 117/67 (84) 98 30 10/25/24 14:30 98.4 209.1 10/25/24 14:00 Mechanical Ventilator+ Total Intake and Output 10/24/24 10/24/24 10/25/24 15:00 23:00 07:00 Intake Total 660.34 ml 1057.63 ml 736.8 ml Output Total 550 ml 700 ml Balance 660.34 ml 507.63 ml 36.8 ml medications Current Medications Medications Dose Ordered Sig/Abundio Route Start Time Stop Time Status Last Admin Dose Admin Propofol 100 ml @ 2.4 mls/hr Q24H IV 10/21/24 10:45 10/25/24 13:21 19.2 MLS/HR Midazolam HCl 50 ml @ 1 mls/hr Q24H IV 10/21/24 11:00 10/23/24 06:36 7 MLS/HR Fentanyl Citrate 250 ml @ 2.5 mls/hr Q24H IV 10/21/24 11:00 10/25/24 01:00 12.5 MLS/HR Diagnostic Test (Pha) 1 strip ACHS 10/21/24 17:00 10/25/24 13:26 1 STRIP Insulin Human Regular ACHS SC 10/21/24 17:00 10/24/24 16:46 2 UNITS Dextrose 50 ml UD PRN IV 10/21/24 14:45 Aspirin 81 mg DAILY PO 10/22/24 10:00 10/25/24 10:53 81 MG Ticagrelor 90 mg BID PO 10/21/24 22:00 10/25/24 10:52 90 MG Norepinephrine Bitartrate 32 mg/ Sodium Chloride 250 ml @ 0.938 mls/ hr Q24H IV 10/21/24 17:00 10/22/24 08:42 3.75 MLS/HR Vasopressin 20 units/Sodium Chloride 100 ml @ 9 mls/hr Q11H7M IV 10/21/24 17:00 Vancomycin HCl 0 ml @ 0 mls/hr UD IV 10/22/24 11:15 Piperacillin Sod/ Tazobactam Sod 100 ml @ 25 mls/hr Q6HR IV 10/22/24 12:00 10/25/24 14:49 25 MLS/HR Enteral Nutritional Formula 1,000 ml 30ML/HR GT 10/22/24 11:15 10/23/24 13:38 1,000 ML Docusate Sodium 100 mg BID GT 10/22/24 22:00 10/25/24 10:52 100 MG Atorvastatin Calcium 40 mg HS PO 10/22/24 22:00 10/24/24 22:24 40 MG Pantoprazole Sodium 40 mg BID IV 10/22/24 22:00 10/25/24 10:52 40 MG Vancomycin HCl 250 ml @ 200 mls/hr Q12H IV 10/23/24 05:00 10/25/24 04:11 200 MLS/HR Sodium Chloride 10 ml QSHIFT@10,22 IV 10/24/24 10:00 10/25/24 10:53 10 ML Amiodarone HCl 200 mg Q12HR PO 10/24/24 22:00 10/25/24 10:53 200 MG Examination Patient lying in bed, intubated and mechanically ventilated General: Well-built, afebrile, palor, mucosae are moist Cardiovascular: Regular S1 and S2. No murmurs, gallops or rubs. No JVD elevation. No pedal edema Respiratory: Normal B/L air entry on room air. Clear lung sounds on auscultation Abdomen: Soft, nontender, nondistended, normoactive bowel sounds, no rebound tenderness, no organomegaly, no masses Genitourinary: Deferred MSK/skin: Skin is dry and warm laboratory and microbiology Laboratory Tests 10/25/24 03:48 Test 10/25/24 03:48 Range/Units Serum Glucose 120 H 74-106 mg/dL Microbiology Date/Time Source Procedure Growth Status 10/22/24 18:25 Nose MRSA Screen - Final Complete 10/21/24 14:56 Blood Blood Culture - Preliminary NO GROWTH AFTER 72 HOURS OF INCUBATION. 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 Plan AST is trending up, likely post PCI changes. Monitor AST. Patient is unstable for any GI procedure at this point. Hemoglobin is stable. Continue supportive management for now. Continue enteral feeding, advanced as tolerated. WBC trending down, H&H stable. Monitor H&H Pantoprazole 40 mg IV b.i.d. Negative Hepatitis panel Patient is currently on Brilinta and aspirin Avoid anticoagulation Overall his prognosis is guarded Plan discussed with patient's and son at the bedside. All questions have been answered. Case discussed with nurse and Dr. Coto Plan discussed with: Patient, Spouse, Son GAILTY RESIDENT Oct 25, 2024 15:43
--- NOTE | 2024-10-25 16:30 | DVH ---
EXAM: CT HEAD WITHOUT CONTRAST INDICATION: Per Dr Naranjo repeat CT post cardiac arrest 10/21/24 TECHNIQUE: CT of the head without intravenous contrast. Radiation Dose Information: CT Dose: CTDI volume is 64.47 mGy. Dose-length product is 1926.5 mGy*cm The dose indicators for CT are the volume Computed Tomography (CT) Dose Index (CTDIvol) and the Dose Length Product (DLP), and are measured in units of mGy and mGy-cm, respectively. These indicators are not patient dose, but values generated from the CT scanner acquisition factors. The report includes radiation exposure data for exposures received during this examination. COMPARISON: None FINDINGS: There is no evidence of acute intracranial hemorrhage, extra-axial collection, mass effect, midline s hift, herniation or hydrocephalus. The ventricles, sulci and cisterns are age appropriate. The chan-white differentiation is intact. Patchy periventricular and subcortical white matter hypoattenuation is nonspecific but may be related to small vessel ischemic disease. Air-fluid levels in the maxillary sinuses bilaterally. Opacified ethmoid sinuses on opacified sphenoi d sinuses bilaterally. The mastoid air cells are clear. The surrounding soft tissues and osseous structures are unremarkable. IMPRESSION: 1. Air-fluid levels and opacification of all paranasal sinuses. Findings consistent with pansinusiti s. 2. No acute intracranial hemorrhage. 3. No CT findings of territorial ischemia. 4. Sulci and gyri are not well seen this may represent diffuse cerebral edema. 5. Subarachnoid hemorrhage versus previous administration of intravenous contrast.
--- NOTE | 2024-10-25 20:25 | DVHINCON2 ---
Date of service: Oct 25, [address] Spence Reason for Consultation Status post cataract arrest History of Present Illness Mr. Lewis is a 54 years old right-handed gentleman with a history of hypertension, COPD, coronary artery disease, heart attack, chronic back pain, he was brought to the hospital on 10/21/2024 with a chief company of cardiopulmonary arrest. At this time, he is intubated, sedated, nonresponsive to stroke painful stimuli, the history is obtained from his , nurse, and chart review On 10/21/2024, the patient was found on the floor nonresponsive by his co-worker and CPR initiated right away, when the EMS came over, they memory are two showed PEA, the patient was resuscitated, and intubated. In the ER, he coded twice for two and 3 minutes. Since then the patient was has been nonresponsive His nurse and I noticed muscle twitching in the stomach CBC, 10/21/2024: Respiratory acidosis WBC/HB/PLT/MCV, 10/25/2024, 12.3/617/95/94.1 /05/11: Unremarkable TBI/AST/ALT/AP, 10/25/2024: 0.6/100 06/08/2049 Troponin one high sensitivity, 10/21/2024: 16, 291, 462, 151 TG/HDL/LDL/HDL, 10/21/2024: 163/II/41/36 CT head, 10/21/2024: No acute intracranial process CT head, 10/25/2024: 1. Air-fluid levels and opacification of all paranasal sinuses. Findings consistent with pansinusitis. 2. No acute intracranial hemorr pola. 3. No CT findings of territorial ischemia. 4. Sulci and gyri are not well seen this may represent diffuse cerebral edema. 5. Subarachnoid hemorrhage versus previous administration of intravenous contrast. Hypertension, diabetes, COPD, heart attack, coronary artery disease chronic low back pain Past Medical History Hypertension, coronary artery disease, heart attack (age of 40), COPD Past Surgical History C-spine surgery, lumbar spine surgery Family History Unobtainable Social History He quit smoking recently, no history of alcohol or recreational substance abuse Allergies: Coded Allergies: NO KNOWN ALLERGIES (Unverified , 02/01/24) Home Meds Active Scripts Acetaminophen W/ Codeine (Tylenol W/Cod #3) 1 Tab Tb, 1 TAB PO Q4HP PRN for 10 Days, #50 TAB Prov:KAR DOS SANTOS IMPREGNATING TANK OPERATOR 02/06/24 Reported Medications Lisinopril (Lisinopril) 40 Mg Tab, 40 MG PO DAILY, TAB 02/01/24 Aspirin (Aspir-81) 81 Mg Tab, 81 MG PO DAILY, TAB 02/01/24 Rosuvastatin Calcium (Crestor) 5 Mg Tab, 5 MG PO QPM, TAB 02/01/24 Carvedilol (Carvedilol) 3.125 Mg Tab, 3.125 MG PO BID, TAB 02/01/24 Current Medications Current Medications Medications (Trade) Dose Ordered Sig/Abundio Route PRN Reason Start Time Stop Time Status Last Admin Amiodarone HCl (Cordarone Tablet) 200 mg Q12HR PO 10/24/24 22:00 10/25/24 10:53 Potassium Chloride 100 ml @ 50 mls/hr Q2H IV 10/25/24 07:00 10/25/24 10:59 DC 10/25/24 11:38 Vancomycin HCl 250 ml @ 250 mls/hr Q8H IV 10/26/24 01:00 Review of Systems As above, the other systems are negative Vital Signs Vital Signs Date Time Temp Pulse Resp B/P (MAP) Pulse Ox O2 Delivery O2 Flow Rate FiO2 10/25/24 19:50 63 28 131/73 (92) 99 30 10/25/24 18:45 98.1 208.6 10/25/24 18:00 Mechanical Ventilator+ Physical Exam The patient is well-nourished and well-developed with no distress. The patient is intubated HEENT: Normocephalic, neck supple, no carotid bruits Lungs: Clear to auscultation Cardiovascular: Regular rate and region, S1, S2, no murmurs Abdomen: Soft, nontender, normal bowel sounds MENTAL STATUS: Not responsive to the surroundings, CRANIAL NERVES: Pupils are equal, round and nonreactive, very small.There are no corneal reflexes and weak doll's eyes phenomenon. No signs of facial weakness. There are no gagging or coughing reflexes SENSATION: No responses to pain stimuli. MOTOR: Normal tone in the upper and lower extremity. Normal muscle bulk. No fasciculations. No spontaneous movement. REFLEXES: Deep tendon reflexes are symmetrical. No pathological reflexes. CEREBELLAR/COORDINATION: Deferred GAIT/STATION: deferred. Labs/Diagnostic Data Labs Test 10/25/24 18:53 10/25/24 16:00 10/25/24 06:53 10/25/24 03:48 Range/Units Creatinine 0.74 0.700-1.30 mg/dL Glomerular Filtration Rate Calc 107 >90 mL/min Thyroid Stimulating Hormone (TSH) 0.46 L 0.55-4.78 uIU/mL Vancomycin Level Trough 10.6 H 5-10 ug/mL Blood Gas Specimen Type Arterial Blood Gas Sample Site Arterial line Blood Gas Patient Temperature 37.0 Arterial Blood Date Drawn [id number] Arterial Blood pH 7.524 H 7.350-7.450 Arterial Blood Partial Pressure CO2 30.5 L 35.0-48.0 mmHg Arterial Blood Partial Pressure O2 64.6 L 83.0-108.0 mmHg Arterial Blood HCO3 24.6 21.0-28.0 mmol/L Arterial Blood Oxygen Saturation 93.7 L 94.0-98.0 % Arterial Blood Base Excess 2.9 -2.0-3.0 mmol/L Arterial Blood Oxyhemoglobin 92.9 L 94.0-98.0 % Arterial Blood Carboxyhemoglobin 0.8 0.5-1.5 % Arterial Blood Methemoglobin 0.1 0.0-1.5 % Elvin Test N/a Blood Gas Total Hemoglobin 17.70 H 13.5-17.5 g/dL Blood Gas Set Respiration Rate 24.0 Blood Gas Modality Vent - ac FiO2 % 30.0 Blood Gas Tidal Volume 500.0 Blood Gas PEEP or CPAP 5.0 Specimen Drawn By White Blood Count 12.3 H 4.4-10.8 10^3/uL Red Blood Count 5.28 4.5-5.90 10^6/uL Hemoglobin 16.7 13.5-17.5 g/dL Hematocrit 49.7 41.0-53.0 % Mean Corpuscular Volume 94.1 80.0-100.0 fL Mean Corpuscular Hemoglobin 31.7 28.0-32.0 pg Mean Corpuscular Hemoglobin Concent 33.6 32.0-36.0 g/dL Red Cell Distribution Width 14.8 H 11.8-14.3 % Platelet Count 95 L 140-450 10^3/uL Mean Platelet Volume 10.2 6.9-10.8 fL Neutrophils (%) (Auto) 86.2 H 37.0-80.0 % Lymphocytes (%) (Auto) 5.0 L 10.0-50.0 % Monocytes (%) (Auto) 7.7 0.0-12.0 % Eosinophils (%) (Auto) 0.8 0.0-7.0 % Basophils (%) (Auto) 0.3 0.0-2.0 % Neutrophils # (Auto) 10.6 H 1.6-8.6 10 ^3/uL Lymphocytes # (Auto) 0.6 0.4-5.4 10 ^3/uL Monocytes # (Auto) 0.9 0-1.3 10 ^3/uL Eosinophils # (Auto) 0.1 0-0.8 10 ^3/uL Basophils # (Auto) 0 0-0.2 10 ^3/uL Nucleated Red Blood Cells 0.0 % Sodium Level 140 136-145 mmol/L Potassium Level 3.3 L 3.5-5.1 mmol/L Chloride Level 105 98-107 mmol/L Carbon Dioxide Level 26 20-31 mmol/L Anion Gap 9 5-15 Blood Urea Nitrogen 7 L 9-23 mg/dL BUN/Creatinine Ratio 9.9 L 10.0-20.0 Serum Glucose 120 H 74-106 mg/dL Calcium Level 8.8 8.7-10.4 mg/dL Magnesium Level 2.0 1.6-2.6 mg/dL Total Bilirubin 0.6 0.2-1.0 mg/dL Aspartate Amino Transferase (AST) 109 H 13-40 U/L Alanine Aminotransferase (ALT) 22 7-40 U/L Alkaline Phosphatase 49 46-116 U/L Total Protein 5.7 5.7-8.2 g/dL Albumin 3.4 3.2-4.8 g/dL Test 10/24/24 03:44 10/23/24 12:00 10/23/24 08:44 10/23/24 07:07 Range/Units Direct Bilirubin 0.2 <0.3 mg/dL POC Glucose 101 70-106 mg/dl Prothrombin Time 12.3 H 9.3-11.8 sec Prothrombin Time INR 1.18 H 0.9-1.15 Activated Partial Thromboplast Time 29.4 24.5-34.5 SEC Blood Gas Spontaneous Rate 24 Blood Gas Inspiratory Pressure 18.0 Bl Gas Inspiratory/Expiratory Ratio 1:1.8 Blood Gas Critical Value Read Back yes Blood Gas Notified Whom sulma holder Blood Gas Notified Time [id number] Blood Gas Notified By all cavazos Test 10/23/24 02:46 10/22/24 23:30 10/22/24 16:00 10/22/24 14:57 Range/Units Influenza Type A Antigen Negative Negative Influenza Type B Antigen Negative Negative SARS-CoV-2 Antigen (Rapid) Negative NEGATIVE Stool Occult Blood Positive Negative Stool Occult Blood Sample #3 Negative Hepatitis B Surface Antigen Negative Negative Hepatitis B Surface Antibody Positive H Negative Hepatitis C Antibody Negative Negative Test 10/21/24 17:54 10/21/24 14:38 10/21/24 12:53 10/21/24 10:25 Range/Units Fibrinogen 357 177-375 mg/dL Troponin I High Sensitivity 951 *H </=54 ng/L Iron Level 151 65-175 ug/dL Total Iron Binding Capacity 296 250-425 ug/dL Percent Iron Saturation 51.0 20-55 % Triglycerides Level 163 H < 150 mg/dL Cholesterol Level 102 < 200 mg/dL LDL Cholesterol 41 < 100 mg/dL HDL Cholesterol 36 L 40-59 mg/dL Folic Acid 18.22 >5.38 ng/mL Lactic Acid Level 2.2 *H 0.4-2.0 mmol/L Urine Color Yellow Yellow Urine Clarity Turbid H Clear Urine pH 6.5 5.0-9.0 Urine Specific [place] 1.016 1.001-1.035 Urine Protein 1+ H Negative Urine Ketones Trace Negative Urine Blood Trace H Negative /uL Urine Nitrite Negative Negative Urine Bilirubin Negative Negative Urine Urobilinogen 2 H Negative mg/dL Urine Leukocyte Esterase 1+ Negative /uL Urine RBC 15 0 - 3 /hpf Urine Microscopic WBC 7 H 0-3 /HPF Urine Squamous Epithelial Cells None seen <5 /hpf Urine Bacteria None seen None Seen /hpf Urine Mucus Few None Seen Urine Glucose Normal Normal mg/dL Urine Opiates Screen Neg NEGATIVE Urine Fentanyl Screen Neg NEGATIVE Urine Barbiturates Screen Neg NEGATIVE Urine Phencyclidine Screen Neg NEGATIVE Urine Amphetamines Screen Neg NEGATIVE Urine Benzodiazepines Screen Neg NEGATIVE Urine Cocaine Screen Neg NEGATIVE Urine Cannabinoids Screen Pos NEGATIVE Test 10/21/24 10:23 Range/Units B-Type Natriuretic Peptide 93.92 0-100 pg/mL Lipase 52 12-53 U/L Microbiology Date/Time Source Procedure Growth Status 10/22/24 18:25 Nose MRSA Screen - Final Complete 10/21/24 14:56 Blood Blood Culture - Preliminary NO GROWTH AFTER 72 HOURS OF INCUBATION. Resulted 10/21/24 10:25 Voided Urine Urine Culture - Final Complete 10/21/24 10:24 Sputum Gram Stain - Final Complete 10/21/24 10:24 Respiratory Culture - Final Escherichia coli Complete Assessment Coma Metabolic encephalopathy Hypoxic encephalopathy Cardiopulmonary arrest Acute respiratory failure Diffuse brain edema Abdominal muscle twitching Segmental myoclonus versus seizure Abnormal CT head Diffuse brain edema Subarachnoid hemorrhage, less likely Plan/Recommendation Monitoring Supportive treatment ICU care EEG MR head Stabilize vitals/pressor drip Respiratory support/vent management Oxygen A trial of Keppra 500 mg IV b.i.d. Antibiotics Hold off aspirin and Brilinta More recommendation per clinical course Progress: Guarded Critical care time spent is 45 minutes This medical document was created using an electronic medical record system with [employer] computerized dictation system. Although this document has been carefully reviewed, there may still be some phonetic and typographical errors. These areas are purely typographical due to imperfections of the software programs, and do not reflect any compromise in the patient's medical care. Plan discussed with: Spouse, Other AYANA AVALOS MD Oct 25, 2024 20:25
--- NOTE | 2024-10-25 22:48 | DVHINCON2 ---
Date of service: Oct 25, 2024 Referring Physician eFlix Greenfield MD Reason for Consultation Acute hypoxic respiratory failure, on mechanical ventilator History of Present Illness 54-year-old man with past medical history of emphysema, COPD, VA, and hypertension who presented to ED on 10/21/24 for evaluation of cardiac arrest. Family reported patient was complaining of chest pain earlier on AM of presentation before he went to work, not feeling good. 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 Initial CPR started and connected AED that administered one shock. When EMS arrived on scene, rn cardiac rehab showed PEA, 1 opportunity, and afterwards only asystole. Patient was administered 4 epinephrine and intubated with laryngeal mask. On arrival to the ED rn cardiac rehab evidenced asystole; epinephrine, two bicarbonate and one calcium was administered, obtaining ROSC after two rounds of CPR. Patient was subsequently intubated and placed on vent. ED workup shows WBC 11.7, hemoglobin 19.7, hematocrit 61.8, platelets 44010, sodium 138, potassium 3.7, BUN 8, creatinine 1.30, glucose 233, lactic acid 9.2 trending down to 2.2, lipase 52, AST 66, ALT 53, troponin to 291, blood pressure 90/63, heart rate 127 trending down to 94, temperature 97.9 F, O2 saturation 93% on ventilator. Urinalysis positive for urinary tract infection. CT of the chest/abdomen/pelvis shows no evidence of pulmonary arterial filling defect to suggest pulmonary embolism, no acute process in the abdomen and pelvis; moderate upper lobe predominant emphysematous changes in the lungs, there is scarring versus atelectasis in the bilateral lung bases. Patient was admitted for further care and pulmonary consultation is requested for evaluation and management due to the above findings Review of Systems: 14-point review of systems negative unless otherwise noted above. Past Medical History: COPD, DM, Emphysema (40 pack-year history of smoking). VA, hypertension Past Surgical History: Stent placement x2 Medications: Reviewed. Allergies: No known drug allergies. Family History: No family history of premature CAD. No family history of lung disorders. Social History: Former smoker, quit smoking cigarettes 2 months ago Ethanol abuse (drinks Tequila most days, son cannot quantify), No illicit drugs abuse on file. Allergies: Coded Allergies: NO KNOWN ALLERGIES (Unverified , 02/01/24) Home Meds Active Scripts Acetaminophen W/ Codeine (Tylenol W/Cod #3) 1 Tab Tb, 1 TAB PO Q4HP PRN for 10 Days, #50 TAB Prov:KAR DOS SANTOS EXTENSION SUPERVISOR 02/06/24 Reported Medications Lisinopril (Lisinopril) 40 Mg Tab, 40 MG PO DAILY, TAB 02/01/24 Aspirin (Aspir-81) 81 Mg Tab, 81 MG PO DAILY, TAB 02/01/24 Rosuvastatin Calcium (Crestor) 5 Mg Tab, 5 MG PO QPM, TAB 02/01/24 Carvedilol (Carvedilol) 3.125 Mg Tab, 3.125 MG PO BID, TAB 02/01/24 Current Medications Current Medications Medications (Trade) Dose Ordered Sig/Abundio Route PRN Reason Start Time Stop Time Status Last Admin Potassium Chloride 100 ml @ 50 mls/hr Q2H IV 10/25/24 07:00 10/25/24 10:59 DC 10/25/24 11:38 Vancomycin HCl 250 ml @ 250 mls/hr Q8H IV 10/26/24 01:00 Vital Signs Vital Signs Date Time Temp Pulse Resp B/P (MAP) Pulse Ox O2 Delivery O2 Flow Rate FiO2 10/25/24 21:49 65 29 113/66 (82) 98 30 10/25/24 20:00 Mechanical Ventilator+ 10/25/24 18:45 98.1 208.6 Physical Exam Gen.: Patient lying in bed in medical ICU. Sedated, intubated on mechanical ventilator. Head: Normocephalic, atraumatic. Eyes: PERRLA. Ears: Normal external anatomy. Throat: Endotracheal tube and orogastric tube in place. Neck: Supple, trachea midline. Chest: Transmitted breath sounds bilaterally. Decreased air entry bilaterally. No wheezing. Bibasilar crackles. Cardiovascular: Positive S1, positive S2. Regular rate and rhythm. Abdomen: Positive bowel sounds in all 4 quadrants. Soft, nontender, nondistended. : Smith in place. Normal external genitalia. Rectal: Deferred. Skin: Warm, dry. Intact. Extremities: 2+ radial pulses bilaterally. No lower extremity edema. Neuro: Sedated. Labs/Diagnostic Data Labs Test 10/25/24 18:53 10/25/24 16:00 10/25/24 06:53 10/25/24 03:48 Range/Units Creatinine 0.74 0.700-1.30 mg/dL Glomerular Filtration Rate Calc 107 >90 mL/min Thyroid Stimulating Hormone (TSH) 0.46 L 0.55-4.78 uIU/mL Vancomycin Level Trough 10.6 H 5-10 ug/mL Blood Gas Specimen Type Arterial Blood Gas Sample Site Arterial line Blood Gas Patient Temperature 37.0 Arterial Blood Date Drawn [id number] Arterial Blood pH 7.524 H 7.350-7.450 Arterial Blood Partial Pressure CO2 30.5 L 35.0-48.0 mmHg Arterial Blood Partial Pressure O2 64.6 L 83.0-108.0 mmHg Arterial Blood HCO3 24.6 21.0-28.0 mmol/L Arterial Blood Oxygen Saturation 93.7 L 94.0-98.0 % Arterial Blood Base Excess 2.9 -2.0-3.0 mmol/L Arterial Blood Oxyhemoglobin 92.9 L 94.0-98.0 % Arterial Blood Carboxyhemoglobin 0.8 0.5-1.5 % Arterial Blood Methemoglobin 0.1 0.0-1.5 % Elvin Test N/a Blood Gas Total Hemoglobin 17.70 H 13.5-17.5 g/dL Blood Gas Set Respiration Rate 24.0 Blood Gas Modality Vent - ac FiO2 % 30.0 Blood Gas Tidal Volume 500.0 Blood Gas PEEP or CPAP 5.0 Specimen Drawn By White Blood Count 12.3 H 4.4-10.8 10^3/uL Red Blood Count 5.28 4.5-5.90 10^6/uL Hemoglobin 16.7 13.5-17.5 g/dL Hematocrit 49.7 41.0-53.0 % Mean Corpuscular Volume 94.1 80.0-100.0 fL Mean Corpuscular Hemoglobin 31.7 28.0-32.0 pg Mean Corpuscular Hemoglobin Concent 33.6 32.0-36.0 g/dL Red Cell Distribution Width 14.8 H 11.8-14.3 % Platelet Count 95 L 140-450 10^3/uL Mean Platelet Volume 10.2 6.9-10.8 fL Neutrophils (%) (Auto) 86.2 H 37.0-80.0 % Lymphocytes (%) (Auto) 5.0 L 10.0-50.0 % Monocytes (%) (Auto) 7.7 0.0-12.0 % Eosinophils (%) (Auto) 0.8 0.0-7.0 % Basophils (%) (Auto) 0.3 0.0-2.0 % Neutrophils # (Auto) 10.6 H 1.6-8.6 10 ^3/uL Lymphocytes # (Auto) 0.6 0.4-5.4 10 ^3/uL Monocytes # (Auto) 0.9 0-1.3 10 ^3/uL Eosinophils # (Auto) 0.1 0-0.8 10 ^3/uL Basophils # (Auto) 0 0-0.2 10 ^3/uL Nucleated Red Blood Cells 0.0 % Sodium Level 140 136-145 mmol/L Potassium Level 3.3 L 3.5-5.1 mmol/L Chloride Level 105 98-107 mmol/L Carbon Dioxide Level 26 20-31 mmol/L Anion Gap 9 5-15 Blood Urea Nitrogen 7 L 9-23 mg/dL BUN/Creatinine Ratio 9.9 L 10.0-20.0 Serum Glucose 120 H 74-106 mg/dL Calcium Level 8.8 8.7-10.4 mg/dL Magnesium Level 2.0 1.6-2.6 mg/dL Total Bilirubin 0.6 0.2-1.0 mg/dL Aspartate Amino Transferase (AST) 109 H 13-40 U/L Alanine Aminotransferase (ALT) 22 7-40 U/L Alkaline Phosphatase 49 46-116 U/L Total Protein 5.7 5.7-8.2 g/dL Albumin 3.4 3.2-4.8 g/dL Test 10/24/24 03:44 10/23/24 12:00 10/23/24 08:44 10/23/24 07:07 Range/Units Direct Bilirubin 0.2 <0.3 mg/dL POC Glucose 101 70-106 mg/dl Prothrombin Time 12.3 H 9.3-11.8 sec Prothrombin Time INR 1.18 H 0.9-1.15 Activated Partial Thromboplast Time 29.4 24.5-34.5 SEC Blood Gas Spontaneous Rate 24 Blood Gas Inspiratory Pressure 18.0 Bl Gas Inspiratory/Expiratory Ratio 1:1.8 Blood Gas Critical Value Read Back yes Blood Gas Notified Whom sulma holder Blood Gas Notified Time [id number] Blood Gas Notified By all cavazos Test 10/23/24 02:46 10/22/24 23:30 10/22/24 16:00 10/22/24 14:57 Range/Units Influenza Type A Antigen Negative Negative Influenza Type B Antigen Negative Negative SARS-CoV-2 Antigen (Rapid) Negative NEGATIVE Stool Occult Blood Positive Negative Stool Occult Blood Sample #3 Negative Hepatitis B Surface Antigen Negative Negative Hepatitis B Surface Antibody Positive H Negative Hepatitis C Antibody Negative Negative Test 10/21/24 17:54 10/21/24 14:38 10/21/24 12:53 10/21/24 10:25 Range/Units Fibrinogen 357 177-375 mg/dL Troponin I High Sensitivity 951 *H </=54 ng/L Iron Level 151 65-175 ug/dL Total Iron Binding Capacity 296 250-425 ug/dL Percent Iron Saturation 51.0 20-55 % Triglycerides Level 163 H < 150 mg/dL Cholesterol Level 102 < 200 mg/dL LDL Cholesterol 41 < 100 mg/dL HDL Cholesterol 36 L 40-59 mg/dL Folic Acid 18.22 >5.38 ng/mL Lactic Acid Level 2.2 *H 0.4-2.0 mmol/L Urine Color Yellow Yellow Urine Clarity Turbid H Clear Urine pH 6.5 5.0-9.0 Urine Specific [place] 1.016 1.001-1.035 Urine Protein 1+ H Negative Urine Ketones Trace Negative Urine Blood Trace H Negative /uL Urine Nitrite Negative Negative Urine Bilirubin Negative Negative Urine Urobilinogen 2 H Negative mg/dL Urine Leukocyte Esterase 1+ Negative /uL Urine RBC 15 0 - 3 /hpf Urine Microscopic WBC 7 H 0-3 /HPF Urine Squamous Epithelial Cells None seen <5 /hpf Urine Bacteria None seen None Seen /hpf Urine Mucus Few None Seen Urine Glucose Normal Normal mg/dL Urine Opiates Screen Neg NEGATIVE Urine Fentanyl Screen Neg NEGATIVE Urine Barbiturates Screen Neg NEGATIVE Urine Phencyclidine Screen Neg NEGATIVE Urine Amphetamines Screen Neg NEGATIVE Urine Benzodiazepines Screen Neg NEGATIVE Urine Cocaine Screen Neg NEGATIVE Urine Cannabinoids Screen Pos NEGATIVE Test 10/21/24 10:23 Range/Units B-Type Natriuretic Peptide 93.92 0-100 pg/mL Lipase 52 12-53 U/L Microbiology Date/Time Source Procedure Growth Status 10/22/24 18:25 Nose MRSA Screen - Final Complete 10/21/24 14:56 Blood Blood Culture - Preliminary NO GROWTH AFTER 72 HOURS OF INCUBATION. Resulted 10/21/24 10:25 Voided Urine Urine Culture - Final Complete 10/21/24 10:24 Sputum Gram Stain - Final Complete 10/21/24 10:24 Respiratory Culture - Final Escherichia coli Complete Assessment Impression: Acute hypoxic respiratory failure On mechanical ventilator S/p cardiac arrest, ROSC Shock Acute exacerbation of COPD Acute on chronic CHF with reduced ejection fraction Coronary artery disease, s/p PCI x2 Non-ST elevation VA Elevated troponin Leukocytosis Thrombocytopenia Polycythemia vera Urinary tract infection GI hemorrhage Transaminitis, likely due to alcohol use disorder ETOH abuse Hx of nicotine dependence Substance use (cannabis) Plan: s/p intubation on mechanical ventilator. CXR image and report reviewed. Devices in place. Bibasilar atelectasis and scarring. ABG reviewed, alkalemia. On AC mode; RR 24, VT 500, PEEP 5, FiO2 30% Titrate FIO2 to keep O2 saturation above 90%. VAP bundle. Daily ABG and CXR while intubated Sedate for ventilator synchrony - on Propofol, Fentanyl Patient with epistaxis, right naris. Repeat CT head to rule out ICH or stroke. Continue antibiotics. F/u cultures. Start pressors if necessary to maintain a mean arterial blood pressure greater than 65 mmHg. Monitor renal function Monitor electrolytes. Supplement as necessary. Monitor ins and outs. Maintain euvolemia. GI prophylaxis. DVT prophylaxis. Prognosis: Poor given patient's multiple co-morbidities. Condition: Critical Rest of plan per hospitalist and other consultants. A total of 35 minutes of critical care time was spent reviewing the patient record, examining the patient, making a diagnostic and therapeutic plan, discussing this plan with the medical personnel, following up on diagnostic studies and following the patient for clinical stability excluding any and all procedures. At least 50% of this time was spent in direct, [id number] contact. Thank you, Dr. Greenfield, for allowing me to participate in this patient's care. Further recommendations will depend on the patient's clinical course. Please do not hesitate to contact me if you have any questions or concerns. This medical document was created using an electronic medical record system with [employer] system. Although these documentations are being carefully reviewed, there may still be some phonetic and typographical changes. The errors are purely typographical, due to imperfection on the software program, and do not reflect any compromise in the patient's medical care. Plan discussed with: Other (YELITZA Gayle/MD Greenfield) LAZARO ALTMAN MD Oct 25, 2024 22:48
--- NOTE | 2024-10-25 23:04 | DVHPN2 ---
Consult Progress Note Subjective Review of Systems: Deferred ((Currently intubated and sedated)) Other Systems: Patient was seen and evaluated in follow up in the ICU, as I am covering for Dr Davis, cardiology services over the weekend. Patient is intubated and sedated on ventilator. 30% FiO2. WBC 12.3, K 3.3, AST 109. Chest x-ray shows bibasilar atelectasis scarring. CT head revealed air-fluid levels and opacification of all paranasal sinuses. Findings consistent with pansinusitis. No acute intracranial hemorrhage. No CT findings of territorial ischemia. Sulci and gyri are not well seen this may represent diffuse cerebral edema. Subarachnoid hemorrhage versus previous administration of intravenous contrast. Objective vital signs Vital Sign Date Time Temp Pulse Resp B/P (MAP) Pulse Ox O2 Delivery O2 Flow Rate FiO2 10/25/24 21:38 114/66 10/25/24 20:00 30 10/25/24 20:00 62 24 98 Mechanical Ventilator+ 10/25/24 18:45 98.1 208.6 Total Intake and Output 10/24/24 10/24/24 10/25/24 15:00 23:00 07:00 Intake Total 660.34 ml 1057.63 ml 736.8 ml Output Total 550 ml 700 ml Balance 660.34 ml 507.63 ml 36.8 ml medications Current Medications Medications Dose Ordered Sig/Abundio Route Start Time Stop Time Status Last Admin Dose Admin Propofol 100 ml @ 2.4 mls/hr Q24H IV 10/21/24 10:45 10/25/24 21:38 19.2 MLS/HR Midazolam HCl 50 ml @ 1 mls/hr Q24H IV 10/21/24 11:00 10/25/24 19:41 1 MLS/HR Fentanyl Citrate 250 ml @ 2.5 mls/hr Q24H IV 10/21/24 11:00 10/25/24 17:25 12.5 MLS/HR Diagnostic Test (Pha) 1 strip ACHS 10/21/24 17:00 10/25/24 21:36 1 STRIP Insulin Human Regular ACHS SC 10/21/24 17:00 10/24/24 16:46 2 UNITS Dextrose 50 ml UD PRN IV 10/21/24 14:45 Aspirin 81 mg DAILY PO 10/22/24 10:00 Hold 10/25/24 10:53 81 MG Ticagrelor 90 mg BID PO 10/21/24 22:00 Hold 10/25/24 10:52 90 MG Norepinephrine Bitartrate 32 mg/ Sodium Chloride 250 ml @ 0.938 mls/ hr Q24H IV 10/21/24 17:00 10/22/24 08:42 3.75 MLS/HR Vasopressin 20 units/Sodium Chloride 100 ml @ 9 mls/hr Q11H7M IV 10/21/24 17:00 Vancomycin HCl 0 ml @ 0 mls/hr UD IV 10/22/24 11:15 Piperacillin Sod/ Tazobactam Sod 100 ml @ 25 mls/hr Q6HR IV 10/22/24 12:00 10/25/24 18:45 25 MLS/HR Enteral Nutritional Formula 1,000 ml 30ML/HR GT 10/22/24 11:15 10/23/24 13:38 1,000 ML Docusate Sodium 100 mg BID GT 10/22/24 22:00 10/25/24 21:36 100 MG Atorvastatin Calcium 40 mg HS PO 10/22/24 22:00 10/25/24 21:36 40 MG Pantoprazole Sodium 40 mg BID IV 10/22/24 22:00 10/25/24 21:37 40 MG Sodium Chloride 10 ml QSHIFT@10,22 IV 10/24/24 10:00 10/25/24 21:37 10 ML Amiodarone HCl 200 mg Q12HR PO 10/24/24 22:00 10/25/24 21:37 200 MG Vancomycin HCl 250 ml @ 250 mls/hr Q8H IV 10/26/24 01:00 Examination: GENERAL:Abnormal (Intubated ), HEENT:Normal, LUNGS:Abnormal (decreased breath sounds ), CVS:Normal, ABDOMEN:Normal, SKIN:Normal laboratory and microbiology Laboratory Tests 10/25/24 16:00 10/25/24 03:48 Test 10/25/24 03:48 Range/Units Serum Glucose 120 H 74-106 mg/dL Problem List/Assessment/Plan Problem List/Assessment/Plan Non ST-elevation myocardial infarction s/p PCI to the LCx x 1 CATALINO. Pulseless ventricular fibrillation arrest. Sustained ventricular tachycardia status post direct current cardioversion. Cardiopulmonary arrest with ROSC. Coronary artery disease status post PTCA x2 CATALINO, on ASA. Ischemic cardiomyopathy with LVEF <20-25%. Thrombocytopenia. Hypertension. Dyslipidemia. Pre-DM. HX of tobacco use. Alcohol dependance. Plan/Recommendation Continued all current supportive medical care. Patient has been seen by William Childress NP on my behalf, him and I discussed the plan with the patient. VFib arrest s/p cardiac catheterization and coronary angiogram with successful balloon angioplasty and stent placement of the LCx. Echo reviewed and shows EF of 20-25% with severe global hypokinesis of the inferior and lateral nicholson. Consider GDMT with optimal BP. Continue DAPT therapy as discussed with Dr. Davis. Upper GI bleed, monitor H&H, transfuse for hemoglobin less than 7. Continue lipid-lowering agent. Continue Amiodarone. Continue GI recommendations. DVT/VTE prophylaxis with SCDs. Patient being weaned off of sedation for possible CPAP trial today. Additional plan as per the hospital course. Plan discussed with: Other Date of Service: Oct 25, 2024 Billing Provider: LILIANA LEVI MD Cardiology Common Codes: [id number] HOSP CARE(High, [id number] CARE 30-74 MIN LILIANA LEVI MD Oct 25, 2024 22:21
[2024-10-26] VITALS (102 sets, daily range): BP systolic 81–167; BP diastolic 50–119; PULSE 61–74; RESP 10–27; TEMP 98.1–99.9; O2SAT 92–100
[2024-10-26] MEDS: VANCOMYCIN 1GM/250ML KIT 250 ML IV SCH (00:47)
[2024-10-26] MEDS: VANCOMYCIN 1GM/250ML KIT 250 ML IV ONE (01:04)
[2024-10-26 04:10] LABS: Basophils # (auto) 0.1 10 ^3/uL (0-0.2); Basophils % (auto) 0.5 % (0.0-2.0); Eosinophils # (auto) 0.2 10 ^3/uL (0-0.8); Eosinophils % (auto) 1.6 % (0.0-7.0); Hematocrit 48.1 % (41.0-53.0); Lymphocytes # (auto) 0.8 10 ^3/uL (0.4-5.4); Lymphocytes % (auto) 6.9 % (10.0-50.0); Mean Corpuscular Hemoglobin 31.4 pg (28.0-32.0); Mean Corpuscular Hgb Conc. 33.2 g/dL (32.0-36.0); Mean Corpuscular Volume 94.7 fL (80.0-100.0); Monocytes # (auto) 0.9 10 ^3/uL (0-1.3); Monocytes % (auto) 8.4 % (0.0-12.0); Neutrophils # (auto) 9.1 10 ^3/uL (1.6-8.6); Neutrophils % (auto) 82.6 % (37.0-80.0); Nucleated Red Blood Cells % 0.3 %; Platelet Count (auto) 102 10^3/uL (140-450); Red Blood Cells 5.08 10^6/uL (4.5-5.90); Red Cell Distribution Width 15.3 % (11.8-14.3)
[2024-10-26 04:23] LABS: Alanine Aminotransferase 19 U/L (7-40); Albumin 3.5 g/dL (3.2-4.8); Anion Gap 8 (5-15); BUN/Creatinine Ratio 14.6 (10.0-20.0); Blood Urea Nitrogen 12 mg/dL (9-23); Carbon Dioxide 28 mmol/L (20-31); Magnesium 2.3 mg/dL (1.6-2.6); Sodium 144 mmol/L (136-145)
[2024-10-26 04:24] LABS: Bilirubin, Total 0.5 mg/dL (0.2-1.0); Total Protein 5.7 g/dL (5.7-8.2)
[2024-10-26 04:27] LABS: Alkaline Phosphatase 41 U/L (46-116); Aspartate Aminotransferase 94 U/L (13-40); Calcium 8.6 mg/dL (8.7-10.4); Chloride 108 mmol/L (98-107); Glucose 107 mg/dL (74-106); Potassium 3.3 mmol/L (3.5-5.1)
--- NOTE | 2024-10-26 05:29 | DVH ---
CHEST RADIOGRAPH Indication: Intubated. Technique: Single frontal view of the chest was obtained Comparison: XY CHEST PORTABLE on DOS: 10/25/24, XY CHEST PORTABLE on DOS: 10/24/24, XY CHEST PORTABLE on DOS: 10/23/24 IMPRESSION: The heart is stable in size. Patchy bibasilar airspace opacities appear similar. No sizable effusion or pneumothorax. Support lines and tubes appear similar.
[2024-10-26] MEDS: POTASSIUM CHL 20MEQ/100ML 100 ML IV ONE ×2 (05:43→14:44)
--- NOTE | 2024-10-26 09:58 | DVHPN2 ---
Consult Progress Note Subjective Review of Systems: Not Done (Continues to be intubated) Objective vital signs Vital Sign Date Time Temp Pulse Resp B/P (MAP) Pulse Ox O2 Delivery O2 Flow Rate FiO2 10/26/24 09:08 95/54 10/26/24 08:00 26 100 Mechanical Ventilator+ 30 30 10/26/24 08:00 73 10/26/24 07:00 98.4 209.1 Total Intake and Output 10/25/24 10/25/24 10/26/24 15:00 23:00 07:00 Intake Total 251.1 ml 479.4 ml 913.6 ml Output Total 550 ml 700 ml Balance 251.1 ml -70.6 ml 213.6 ml medications Current Medications Medications Dose Ordered Sig/Abundio Route Start Time Stop Time Status Last Admin Dose Admin Propofol 100 ml @ 2.4 mls/hr Q24H IV 10/21/24 10:45 10/26/24 06:12 19.2 MLS/HR Midazolam HCl 50 ml @ 1 mls/hr Q24H IV 10/21/24 11:00 10/26/24 09:08 6 MLS/HR Fentanyl Citrate 250 ml @ 2.5 mls/hr Q24H IV 10/21/24 11:00 10/26/24 05:34 20 MLS/HR Diagnostic Test (Pha) 1 strip ACHS 10/21/24 17:00 10/26/24 06:11 1 STRIP Insulin Human Regular ACHS SC 10/21/24 17:00 10/24/24 16:46 2 UNITS Dextrose 50 ml UD PRN IV 10/21/24 14:45 Aspirin 81 mg DAILY PO 10/22/24 10:00 Hold 10/25/24 10:53 81 MG Ticagrelor 90 mg BID PO 10/21/24 22:00 Hold 10/25/24 10:52 90 MG Norepinephrine Bitartrate 32 mg/ Sodium Chloride 250 ml @ 0.938 mls/ hr Q24H IV 10/21/24 17:00 10/22/24 08:42 3.75 MLS/HR Vasopressin 20 units/Sodium Chloride 100 ml @ 9 mls/hr Q11H7M IV 10/21/24 17:00 Vancomycin HCl 0 ml @ 0 mls/hr UD IV 10/22/24 11:15 Piperacillin Sod/ Tazobactam Sod 100 ml @ 25 mls/hr Q6HR IV 10/22/24 12:00 10/26/24 05:33 25 MLS/HR Enteral Nutritional Formula 1,000 ml 30ML/HR GT 10/22/24 11:15 10/23/24 13:38 1,000 ML Docusate Sodium 100 mg BID GT 10/22/24 22:00 10/25/24 21:36 100 MG Atorvastatin Calcium 40 mg HS PO 10/22/24 22:00 10/25/24 21:36 40 MG Pantoprazole Sodium 40 mg BID IV 10/22/24 22:00 10/25/24 21:37 40 MG Sodium Chloride 10 ml QSHIFT@10,22 IV 10/24/24 10:00 10/25/24 21:37 10 ML Amiodarone HCl 200 mg Q12HR PO 10/24/24 22:00 10/25/24 21:37 200 MG Vancomycin HCl 250 ml @ 250 mls/hr Q8H IV 10/26/24 01:00 10/26/24 09:07 250 MLS/HR Examination: LUNGS:Abnormal (On mechanical vent, 30% FiO2), CVS:Normal (Telemetry reviewed, consistent with sinus rhythm 70 beats per minute, no overnight events noted.), NEURO:Abnormal (Sedated) laboratory and microbiology Laboratory Tests 10/26/24 03:35 Test 10/26/24 03:35 Range/Units Serum Glucose 107 H 74-106 mg/dL Problem List/Assessment/Plan Problem List/Assessment/Plan Problem List/Assessment/Plan Non ST-elevation myocardial infarction s/p PCI to the LCx x 1 CATALINO Pulseless ventricular fibrillation arrest Sustained ventricular tachycardia status post direct current cardioversion Cardiopulmonary arrest with ROSC Coronary artery disease status post PTCA x2 CATALINO, on ASA Ischemic cardiomyopathy with LVEF <20-25% Thrombocytopenia Hypertension Dyslipidemia Pre-DM HX of tobacco use Alcohol dependance Plan/Recommendation (Dr. Davis) Case Discussed with Dr Davis. . VFib arrest s/p cardiac catheterization and coronary angiogram with successful balloon angioplasty and stent placement of the LCx. Echo reviewed and shows EF of 20-25% with severe global hypokinesis of the inferior and lateral nicholson. Consider GDMT with optimal BP. Continue DAPT therapy as discussed with Dr. Davis. Upper GI bleed, monitor H&H, transfuse for hemoglobin less than 7. Hemoglobin stable at 16.7 hematocrit 49.7. Platelets 95 today. GI on board. Continue lipid-lowering agent. Continues to be in sinus rhythm. continue Amiodarone. Continue GI recommendations. DVT/VTE prophylaxis with SCDs. Repeat CT head showed possible subarachnoid hemorrhage versus previous administration of IV contrast. Follow up MRI. CT head also showing sulci and gyri not well seen possible representation of diffuse cerebral edema. Neurology on board. A.m. dose anticoagulation held untill follow up MRI today. Thank you for allowing us to participate in this patient's care. Please call if you have any questions or concerns. Critical care, time spent: 40 minutes This medical document was created using an electronic medical record system with voice recognition software and computerized dictation system. Although this document has been carefully reviewed, there might still be some phonetic and typographical errors. Occasional wrong-word or ``sound-alike substitutions may have occurred due to the inherent limitations of voice recognition software. These areas are purely typographical due to imperfections of the software programs and do not reflect any compromise in the patient's medical care. Please read the chart carefully and recognize, using context, where these substitutions have occurred. Thank you for allowing me to participate in the management of this patient. The treatment plan was discussed with and agreed upon by patient/family including requesting consultants and ordering of imaging/procedures. Plan discussed with: Patient Date of Service: Oct 26, 2024 Billing Provider: JANUARY BIRMINGHAM Common Visit Codes: [id number] INP/OBS CARE(HIGH), [id number] CARE 30-74 MIN JANUARY BIRMINGHAM Oct 26, 2024 09:58
[2024-10-26] MEDS: MAGNESIUM SULFATE 1GM/100ML 100 ML IV ONE (14:43)
[2024-10-26] MEDS: SODIUM CHLORIDE 0.9% 250 ML IV ONE (14:45)
--- NOTE | 2024-10-26 15:31 | DVH ---
PROCEDURE: MRI BRAIN HEAD WO CONTRAST INDICATION: r/o cerebral edema EXAM DATE: 10/26/2024 01:53 PM COMPARISON: CT head 10/25/2024 TECHNIQUE: MRI of the brain without intravenous contrast. FINDINGS: Diffuse cortical diffusion restriction in the bilateral cerebral hemispheres. There is relative spar ing in the basal ganglia and thalami on DWI/ ADC; however, there is increased FLAIR hyperintensity in these structures as well as the quadrigeminal plate. There is at least mild effacement of the sulci, cisterns, and ventricles compared to what is expected for age. The cerebellar tonsils protrude 3 mm caudal to the foramen magnum without significant crowd ing. Punctate susceptibility artifact at the globus pallidus bilaterally which could represent minimal min eralization or old microhemorrhage. No evidence of acute intracranial hemorrhage. The major vascular flow voids are present. There is mucosal thickening and fluid seen throughout the paranasal sinuses. There is mild fluid sig nal in the bilateral mastoids. The surrounding soft tissues and osseous structures are unremarkable. IMPRESSION: 1. Findings are compatible with diffuse anoxic injury. 2. Mild diffuse effacement of the CSF spaces. The cerebellar tonsils are minimally low-lying although there is no significant crowding at the foramen magnum at this time.
--- NOTE | 2024-10-26 17:50 | DVH ---
CHEST RADIOGRAPH Indication: ogt placement Technique: Single frontal view of the chest was obtained COMPARISON: XY CHEST XRAY 1 VIEW on DOS: 10/26/24, XY CHEST PORTABLE on DOS: 10/25/24, XY CHEST PORTABLE on DOS: 10/24/24, XY CHEST PORTABLE on DOS: 10/23/24, XY CHEST PORTABLE on DOS: 10/22/24 FINDINGS: Lines and Tubes: Orogastric tube tip is in the distal stomach. Lungs: Bibasilar opacities may reflect pneumonia or aspiration. Pleura: No effusion. No pneumothorax. Cardiomediastinal contours: Unremarkable Bones: Unremarkable IMPRESSION: 1. Orogastric tube tip is in the distal stomach. 2. Bibasilar opacities may reflect pneumonia or aspiration.
[2024-10-26] MEDS: CLOPIDOGREL BISULFATE 75 MG TAB PO ONE (18:00)
--- NOTE | 2024-10-26 19:14 | DVHPN2 ---
Progress Note - Dictate Date Seen: Oct 26, 2024 Medical Necessity Reason Pt with a Central, PICC or Fol: Yes The following are medically ne: Central Line, Smith Catheter Subjective Mr. Lewis is a 54 years old right-handed gentleman with a history of hypertension, COPD, coronary artery disease, heart attack, chronic back pain, he was brought to the hospital on 10/21/2024 with a chief company of cardiopulmonary arrest. His temperature it was compensated, nonresponsive to stroke painful stimuli He was have jerky movement is abdominal wall I have talked Ray, from the radiologist Re: Addendum to specify intracranial hemorrhage in MRI Talked to his son irma jimenez other family willie @ [phone], we discussed about his severe ischemic brain injury, and poor prognosis for meaningful recovery/overall recovery, we have discussed about the future care of him, including possible tracheostomy and feeding tube Fentanyl 125 mcg/hour, propofol, 50 mcgm/minute, Levo 8 mcg/minute, FiO2: 40% CBC, 10/21/2024: Respiratory acidosis WBC/HB/PLT/MCV, 10/25/2024, 12.3/617/95/94.1 BMP/05/11: Unremarkable TBI/AST/ALT/AP, 10/25/2024: 0.6/100 06/08/2049 Troponin one high sensitivity, 10/21/2024: 16, 291, 462, 151 TG/HDL/LDL/HDL, 10/21/2024: 163/II/41/36 EE,10/26/2024: Remarkably abnormal EEG CT head, 10/21/2024: No acute intracranial process CT head, 10/25/2024: 1. Air-fluid levels and opacification of all paranasal sinuses. Findings consistent with pansinusitis. 2. No acute intracranial hemorrhage. 3. No CT findings of territorial ischemia. 4. Sulci and gyri are not well seen this may represent diffuse cerebral edema. 5. Subarachnoid hemorrhage versus previous administration of intravenous contrast MRI head, 10/26/2024 comparison, CT head dated 10/25/2024: 1. Findings are compatible with diffuse anoxic injury. 2. Mild diffuse effacement of the CSF spaces. The cerebellar tonsils are minimally low-lying although there is no significant crowding at the foramen magnum at this time vital signs Vital Sign Date Time Temp Pulse Resp B/P (MAP) Pulse Ox O2 Delivery O2 Flow Rate FiO2 10/26/24 18:55 114/62 10/26/24 18:50 71 27 98 30 10/26/24 18:30 99.0 210.2 10/26/24 18:00 Mechanical Ventilator+ Total Intake and Output 10/25/24 10/25/24 10/26/24 15:00 23:00 07:00 Intake Total 251.1 ml 479.4 ml 913.6 ml Output Total 550 ml 700 ml Balance 251.1 ml -70.6 ml 213.6 ml medications Current Medications Medications Dose Ordered Sig/Abundio Route Start Time Stop Time Status Last Admin Dose Admin Propofol 100 ml @ 2.4 mls/hr Q24H IV 10/21/24 10:45 10/26/24 18:55 14.4 MLS/HR Midazolam HCl 50 ml @ 1 mls/hr Q24H IV 10/21/24 11:00 10/26/24 18:05 6 MLS/HR Fentanyl Citrate 250 ml @ 2.5 mls/hr Q24H IV 10/21/24 11:00 10/26/24 05:34 20 MLS/HR Diagnostic Test (Pha) 1 strip ACHS 10/21/24 17:00 10/26/24 16:49 1 STRIP Insulin Human Regular ACHS SC 10/21/24 17:00 10/24/24 16:46 2 UNITS Dextrose 50 ml UD PRN IV 10/21/24 14:45 Aspirin 81 mg DAILY PO 10/22/24 10:00 Hold 10/25/24 10:53 81 MG Norepinephrine Bitartrate 32 mg/ Sodium Chloride 250 ml @ 0.938 mls/ hr Q24H IV 10/21/24 17:00 10/26/24 10:56 0.938 MLS/HR Vasopressin 20 units/Sodium Chloride 100 ml @ 9 mls/hr Q11H7M IV 10/21/24 17:00 Vancomycin HCl 0 ml @ 0 mls/hr UD IV 10/22/24 11:15 Piperacillin Sod/ Tazobactam Sod 100 ml @ 25 mls/hr Q6HR IV 10/22/24 12:00 10/26/24 18:55 25 MLS/HR Enteral Nutritional Formula 1,000 ml 30ML/HR GT 10/22/24 11:15 10/23/24 13:38 1,000 ML Docusate Sodium 100 mg BID GT 10/22/24 22:00 10/25/24 21:36 100 MG Atorvastatin Calcium 40 mg HS PO 10/22/24 22:00 10/25/24 21:36 40 MG Pantoprazole Sodium 40 mg BID IV 10/22/24 22:00 10/26/24 10:51 40 MG Sodium Chloride 10 ml QSHIFT@10,22 IV 10/24/24 10:00 10/26/24 10:52 10 ML Amiodarone HCl 200 mg Q12HR PO 10/24/24 22:00 10/26/24 10:52 200 MG Vancomycin HCl 250 ml @ 250 mls/hr Q8H IV 10/26/24 01:00 10/26/24 17:59 250 MLS/HR Clopidogrel Bisulfate 75 mg DAILY PO 10/27/24 10:00 objective The patient is well-nourished and well-developed with no distress. The patient is intubated MENTAL STATUS: Subjective CRANIAL NERVES: Pupils are equal, round and nonreactive, very small.There are no corneal reflexes and weak doll's eyes phenomenon. No signs of facial weakness. There are no gagging or coughing reflexes SENSATION: Subjective MOTOR: Normal tone in the upper and lower extremity. Normal muscle bulk. No fasciculations. No spontaneous movement. REFLEXES: Deep tendon reflexes are symmetrical. No pathological reflexes. CEREBELLAR/COORDINATION: Deferred GAIT/STATION: deferred laboratory and microbiology Laboratory Tests 10/26/24 03:35 Test 10/26/24 03:35 Range/Units Serum Glucose 107 H 74-106 mg/dL Problem List Coma Metabolic encephalopathy Hypoxic encephalopathy Cardiopulmonary arrest Acute respiratory failure Diffuse brain edema Abdominal muscle twitching Segmental myoclonus versus seizure Abnormal CT head Diffuse brain edema Subarachnoid hemorrhage, less likely Assessment/Plan Monitoring Supportive treatment ICU care Stabilize vitals/pressor drip Respiratory support/vent management Oxygen Keppra 500 mg IV b.i.d. Antibiotics Hold off aspirin and Brilinta More recommendation per clinical course This medical document was created using an electronic medical record system with [employer] dictation system. Although this document has been carefully reviewed, there may still be some phonetic and typographical errors. These areas are purely typographical due to imperfections of the software programs, and do not reflect any compromise in the patient's medical care Prognosis guarded, poor Plan discussed with: Daughter, Son, Other Critical Care Time(min): 40 AYANA AVALOS MD Oct 26, 2024 19:14
--- NOTE | 2024-10-26 19:41 | DVHPN2 ---
Progress Note - Dictate Date Seen: Oct 26, 2024 Medical Necessity Reason Pt with a Central, PICC or Fol: Yes The following are medically ne: Central Line, Smith Catheter Subjective Patient is still intubated sedated Minimal GI bleeding reported Hemoglobin stable at [address] suggestive of anoxic brain damage with cerebral edema vital signs Vital Sign Date Time Temp Pulse Resp B/P (MAP) Pulse Ox O2 Delivery O2 Flow Rate FiO2 10/26/24 18:55 114/62 10/26/24 18:50 71 27 98 30 10/26/24 18:30 99.0 210.2 10/26/24 18:00 Mechanical Ventilator+ Total Intake and Output 10/25/24 10/25/24 10/26/24 15:00 23:00 07:00 Intake Total 251.1 ml 479.4 ml 913.6 ml Output Total 550 ml 700 ml Balance 251.1 ml -70.6 ml 213.6 ml medications Current Medications Medications Dose Ordered Sig/Abundio Route Start Time Stop Time Status Last Admin Dose Admin Propofol 100 ml @ 2.4 mls/hr Q24H IV 10/21/24 10:45 10/26/24 18:55 14.4 MLS/HR Midazolam HCl 50 ml @ 1 mls/hr Q24H IV 10/21/24 11:00 10/26/24 18:05 6 MLS/HR Fentanyl Citrate 250 ml @ 2.5 mls/hr Q24H IV 10/21/24 11:00 10/26/24 05:34 20 MLS/HR Diagnostic Test (Pha) 1 strip ACHS 10/21/24 17:00 10/26/24 16:49 1 STRIP Insulin Human Regular ACHS SC 10/21/24 17:00 10/24/24 16:46 2 UNITS Dextrose 50 ml UD PRN IV 10/21/24 14:45 Aspirin 81 mg DAILY PO 10/22/24 10:00 Hold 10/25/24 10:53 81 MG Norepinephrine Bitartrate 32 mg/ Sodium Chloride 250 ml @ 0.938 mls/ hr Q24H IV 10/21/24 17:00 10/26/24 10:56 0.938 MLS/HR Vasopressin 20 units/Sodium Chloride 100 ml @ 9 mls/hr Q11H7M IV 10/21/24 17:00 Vancomycin HCl 0 ml @ 0 mls/hr UD IV 10/22/24 11:15 Piperacillin Sod/ Tazobactam Sod 100 ml @ 25 mls/hr Q6HR IV 10/22/24 12:00 10/26/24 18:55 25 MLS/HR Enteral Nutritional Formula 1,000 ml 30ML/HR GT 10/22/24 11:15 10/23/24 13:38 1,000 ML Docusate Sodium 100 mg BID GT 10/22/24 22:00 10/25/24 21:36 100 MG Atorvastatin Calcium 40 mg HS PO 10/22/24 22:00 10/25/24 21:36 40 MG Pantoprazole Sodium 40 mg BID IV 10/22/24 22:00 10/26/24 10:51 40 MG Sodium Chloride 10 ml QSHIFT@10,22 IV 10/24/24 10:00 10/26/24 10:52 10 ML Amiodarone HCl 200 mg Q12HR PO 10/24/24 22:00 10/26/24 10:52 200 MG Vancomycin HCl 250 ml @ 250 mls/hr Q8H IV 10/26/24 01:00 10/26/24 17:59 250 MLS/HR Clopidogrel Bisulfate 75 mg DAILY PO 10/27/24 10:00 objective Patient lying in bed, intubated and mechanically ventilated General: Well-built, afebrile, palor, mucosae are moist Cardiovascular: Regular S1 and S2. No murmurs, gallops or rubs. No JVD elevation. No pedal edema Respiratory: Normal B/L air entry on room air. Clear lung sounds on auscultation Abdomen: Soft, nontender, nondistended, normoactive bowel sounds, no rebound tenderness, no organomegaly, no masses MSK/skin: Skin is dry and warm laboratory and microbiology Laboratory Tests 10/26/24 03:35 Test 10/26/24 03:35 Range/Units Serum Glucose 107 H 74-106 mg/dL Brain MRI IMPRESSION: 1. Findings are compatible with diffuse anoxic injury. 2. Mild diffuse effacement of the CSF spaces. The cerebellar tonsils are minimally low-lying although there is no significant crowding at the foramen magnum at this time. Problems(with codes): (1) Cardiomyopathy (2) Rectal bleeding (3) CAD (coronary artery disease) (4) Polycythemia vera (5) Cardiac arrest Prognosis Plan Patient's Brilinta and blood thinners were put on hold because of suspected small subarachnoid hemorrhage Continue supportive care Prognosis remains guarded Monitor labs GI team will be standing by in case there is any evidence of active moderate bleeding Plan discussed with: Other (ICU Nurse Nalini) TON YORK MD Oct 26, 2024 19:41
[2024-10-26 20:36] LABS: Potassium 3.4 mmol/L (3.5-5.1)
[2024-10-26 20:38] LABS: Magnesium 2.2 mg/dL (1.6-2.6)
--- NOTE | 2024-10-26 21:02 | DVHPN2 ---
Subjective Intubated, and sedated Reviewed: Care Plan, H&P, Labs, Medications, Previous Orders, Radiology, Other (Consultations) Changes from previous H/P or p: No Changes Objective Vitals Vital Signs Date Time Temp Pulse Resp B/P (MAP) Pulse Ox O2 Delivery O2 Flow Rate FiO2 10/26/24 20:29 71 27 112/59 (76) 98 30 10/26/24 19:45 99.5 211.1 10/26/24 18:00 Mechanical Ventilator+ Intake/Output Intake and Output 10/26/24 07:00 Intake Total 1644.1 ml Output Total 1250 ml Balance 394.1 ml Intake Oral 120 ml IV Total 1484.1 ml Tube Feeding 40 ml Output Urine Total 900 ml Stool Total 0 ml Gastric Drainage Total 350 ml General Appearance: Other (Intubated, and sedated) HEENT: Atraumatic Lungs: Other (MV sounds) Cardiovascular: Regular rate, Normal S1, Normal S2 Abdomen: Soft, Other (continuous abdominal wall movements) Genitourinary: Other (Smith's) Neuro: Other (Sedated) Psych/Mental Status: Other (Sedated) Medications Current Medications Medications Dose Ordered Sig/Abundio Route Start Time Stop Time Status Last Admin Dose Admin Propofol 100 ml @ 2.4 mls/hr Q24H IV 10/21/24 10:45 10/26/24 18:55 14.4 MLS/HR Midazolam HCl 50 ml @ 1 mls/hr Q24H IV 10/21/24 11:00 10/26/24 18:05 6 MLS/HR Fentanyl Citrate 250 ml @ 2.5 mls/hr Q24H IV 10/21/24 11:00 10/26/24 05:34 20 MLS/HR Diagnostic Test (Pha) 1 strip ACHS 10/21/24 17:00 10/26/24 16:49 1 STRIP Insulin Human Regular ACHS SC 10/21/24 17:00 10/24/24 16:46 2 UNITS Dextrose 50 ml UD PRN IV 10/21/24 14:45 Aspirin 81 mg DAILY PO 10/22/24 10:00 Hold 10/25/24 10:53 81 MG Norepinephrine Bitartrate 32 mg/ Sodium Chloride 250 ml @ 0.938 mls/ hr Q24H IV 10/21/24 17:00 10/26/24 10:56 0.938 MLS/HR Vasopressin 20 units/Sodium Chloride 100 ml @ 9 mls/hr Q11H7M IV 10/21/24 17:00 Vancomycin HCl 0 ml @ 0 mls/hr UD IV 10/22/24 11:15 Piperacillin Sod/ Tazobactam Sod 100 ml @ 25 mls/hr Q6HR IV 10/22/24 12:00 10/26/24 18:55 25 MLS/HR Enteral Nutritional Formula 1,000 ml 30ML/HR GT 10/22/24 11:15 10/23/24 13:38 1,000 ML Docusate Sodium 100 mg BID GT 10/22/24 22:00 10/25/24 21:36 100 MG Atorvastatin Calcium 40 mg HS PO 10/22/24 22:00 10/25/24 21:36 40 MG Pantoprazole Sodium 40 mg BID IV 10/22/24 22:00 10/26/24 10:51 40 MG Sodium Chloride 10 ml QSHIFT@10,22 IV 10/24/24 10:00 10/26/24 10:52 10 ML Amiodarone HCl 200 mg Q12HR PO 10/24/24 22:00 10/26/24 10:52 200 MG Vancomycin HCl 250 ml @ 250 mls/hr Q8H IV 10/26/24 01:00 10/26/24 17:59 250 MLS/HR Clopidogrel Bisulfate 75 mg DAILY PO 10/27/24 10:00 Levetiracetam 100 ml @ 400 mls/hr BID IV 10/27/24 10:00 UNV Laboratory Results Laboratory Tests 10/26/24 03:35 10/26/24 20:13 Chemistry Test 10/26/24 03:35 10/26/24 20:13 Albumin 3.5 g/dL (3.2-4.8) Calcium Level 8.6 mg/dL (8.7-10.4) L Magnesium Level 2.3 mg/dL (1.6-2.6) 2.2 mg/dL (1.6-2.6) Total Protein 5.7 g/dL (5.7-8.2) LFT Test 10/26/24 03:35 Alanine Aminotransferase (ALT) 19 U/L (7-40) Alkaline Phosphatase 41 U/L (46-116) L Aspartate Amino Transferase (AST) 94 U/L (13-40) H Total Bilirubin 0.5 mg/dL (0.2-1.0) Urinalysis Test 10/21/24 10:25 Urine Color Yellow (Yellow) Urine Clarity Turbid (Clear) H Urine pH 6.5 (5.0-9.0) Urine Specific Welling 1.016 (1.001-1.035) Urine Protein 1+ (Negative) H Urine Ketones Trace (Negative) Urine Blood Trace /uL (Negative) H Urine Nitrite Negative (Negative) Urine Bilirubin Negative (Negative) Urine Urobilinogen 2 mg/dL (Negative) H Urine Leukocyte Esterase 1+ /uL (Negative) Urine RBC 15 /hpf (0 - 3) Urine Microscopic WBC 7 /HPF (0-3) H Urine Squamous Epithelial Cells None seen /hpf (<5) Urine Bacteria None seen /hpf (None Seen) Urine Mucus Few (None Seen) Urine Glucose Normal mg/dL (Normal) Blood Gas Results Test 10/26/24 07:34 Arterial Blood pH 7.515 (7.350-7.450) FiO2 % 30.0 Microbiology Microbiology Date/Time Source Procedure Growth Status 10/22/24 18:25 Nose MRSA Screen - Final Complete 10/21/24 14:56 Blood Blood Culture - Final NO GROWTH AFTER 5 DAYS OF INCUBATION. Complete 10/21/24 10:25 Voided Urine Urine Culture - Final Complete 10/21/24 10:24 Sputum Gram Stain - Final Complete 10/21/24 10:24 Respiratory Culture - Final Escherichia coli Complete Labs and/or images reviewed: Labs reviewed by me, Image(s) reviewed by me Assessment/Plan Assessment/Plan Covering Dr. Hanks: #Acute anoxic/metabolic/toxic encephalopathy in the setting of cardiac arrest, and septic shock #Acute hypoxic respiratory failure due to E coli pneumonia #Septic shock with leukocytosis, and lactic acidosis due to E coli pneumonia #NSTEMI s/p PCI to the LCx x 1 CATALINO; this admission #Pulseless ventricular fibrillation arrest #Sustained ventricular tachycardia status post direct current cardioversion #Cardiopulmonary arrest with ROSC #CAD status post PTCA x2 CATALINO; before this admission #Ischemic cardiomyopathy with LVEF <20-25% #Thrombocytopenia #Hypertensive heart disease; in shock #Dyslipidemia #Pre-DM #Polysubstance use disorder; alcohol, marijuana, and tobacco #Upper GI bleed; stopped #Elevated LFTs secondary to ischemic liver #HIEN due to VMN in the setting of shock #Bilateral atelectasis #Rhabdomyolysis; mild Given IVF bolus Pulmonology, neurology, GI, and cardiology are following Continue broad-spectrum IV antibiotics Continue oxygen therapy via MV as indicated Continue IV vasopressors as needed Monitor electrolytes closely and replace/correct as needed Avoid hepato/nephrotoxic agents Reviewed available cultures, labs, ABGs, and imaging studies including CXRs, and brain MRI Telemetry Continue aspirin, clopidogrel, and statin Continue close monitoring Goals of care discussed with the patient's son for 20 minutes; full code. 99 minutes of critical care time. Late Entry. This medical document was created using an electronic medical record system with computerized dictation system. Although this document has been carefully reviewed, there might still be some phonetic and typographical errors. These areas are purely typographical due to imperfections of the software programs, and do not reflect any compromise in the patient's medical care. Plan discussed with: Son, Other (Nurse) My Orders Orders - AGUILAR RAI MD Procedure Category Date Status Time Chest Portable XY 10/26/24 Resulted 16:50 Date of Service: Oct 26, 2024 Billing Provider: AGUILAR RAI MD Common Visit Codes: 59269-[id number] CARE 30-74 MIN (99 minutes), [id number] CARE-EACH +30MIN Secondary Visit Codes: [id number] CARE PLAN 30 MINUTES (20 minutes) AGUILAR RAI MD Oct 26, 2024 21:02
[2024-10-26] MEDS: levETIRAcetam 1000 mg/100ml 100 ML IV ONE (21:23)
[2024-10-26] MEDS: POTASSIUM CHL 20MEQ/100ML 100 ML IV SCH (21:24)
--- NOTE | 2024-10-26 22:14 | DVHPN2 ---
Progress Note - Dictate Date Seen: Oct 26, 2024 Medical Necessity Reason Pt with a Central, PICC or Fol: Yes The following are medically ne: Central Line, Cheema Catheter Reason for cheema catheter: Strict I&O Subjective Patient seen and examined at bedside. Sedated, intubated on mechanical ventilator. Overnight events reviewed. vital signs Vital Sign Date Time Temp Pulse Resp B/P (MAP) Pulse Ox O2 Delivery O2 Flow Rate FiO2 10/26/24 20:29 71 27 112/59 (76) 98 30 10/26/24 19:45 99.5 211.1 10/26/24 18:00 Mechanical Ventilator+ Total Intake and Output 10/25/24 10/25/24 10/26/24 15:00 23:00 07:00 Intake Total 251.1 ml 479.4 ml 913.6 ml Output Total 550 ml 700 ml Balance 251.1 ml -70.6 ml 213.6 ml medications Current Medications Medications Dose Ordered Sig/Abundio Route Start Time Stop Time Status Last Admin Dose Admin Propofol 100 ml @ 2.4 mls/hr Q24H IV 10/21/24 10:45 10/26/24 18:55 14.4 MLS/HR Midazolam HCl 50 ml @ 1 mls/hr Q24H IV 10/21/24 11:00 10/26/24 18:05 6 MLS/HR Fentanyl Citrate 250 ml @ 2.5 mls/hr Q24H IV 10/21/24 11:00 10/26/24 05:34 20 MLS/HR Diagnostic Test (Pha) 1 strip ACHS 10/21/24 17:00 10/26/24 21:42 1 STRIP Insulin Human Regular ACHS SC 10/21/24 17:00 10/24/24 16:46 2 UNITS Dextrose 50 ml UD PRN IV 10/21/24 14:45 Aspirin 81 mg DAILY PO 10/22/24 10:00 Hold 10/25/24 10:53 81 MG Norepinephrine Bitartrate 32 mg/ Sodium Chloride 250 ml @ 0.938 mls/ hr Q24H IV 10/21/24 17:00 10/26/24 10:56 0.938 MLS/HR Vasopressin 20 units/Sodium Chloride 100 ml @ 9 mls/hr Q11H7M IV 10/21/24 17:00 Vancomycin HCl 0 ml @ 0 mls/hr UD IV 10/22/24 11:15 Piperacillin Sod/ Tazobactam Sod 100 ml @ 25 mls/hr Q6HR IV 10/22/24 12:00 10/26/24 18:55 25 MLS/HR Enteral Nutritional Formula 1,000 ml 30ML/HR GT 10/22/24 11:15 10/23/24 13:38 1,000 ML Docusate Sodium 100 mg BID GT 10/22/24 22:00 10/26/24 21:45 100 MG Atorvastatin Calcium 40 mg HS PO 10/22/24 22:00 10/26/24 21:45 40 MG Pantoprazole Sodium 40 mg BID IV 10/22/24 22:00 10/26/24 21:40 40 MG Sodium Chloride 10 ml QSHIFT@10,22 IV 10/24/24 10:00 10/26/24 21:40 10 ML Amiodarone HCl 200 mg Q12HR PO 10/24/24 22:00 10/26/24 21:45 200 MG Vancomycin HCl 250 ml @ 250 mls/hr Q8H IV 10/26/24 01:00 10/26/24 17:59 250 MLS/HR Clopidogrel Bisulfate 75 mg DAILY PO 10/27/24 10:00 Levetiracetam 100 ml @ 400 mls/hr BID IV 10/27/24 10:00 Potassium Chloride 100 ml @ 50 mls/hr Q2H IV 10/26/24 21:00 10/27/24 00:59 10/26/24 21:24 50 MLS/HR objective Gen.: Patient lying in bed in medical ICU. Sedated, intubated on mechanical ventilator. Head: Normocephalic, atraumatic. Eyes: PERRLA. Ears: Normal external anatomy. Throat: Endotracheal tube and orogastric tube in place. Neck: Supple, trachea midline. Chest: Transmitted breath sounds bilaterally. Decreased air entry bilaterally. No wheezing. Bibasilar crackles. Cardiovascular: Positive S1, positive S2. Regular rate and rhythm. Abdomen: Positive bowel sounds in all 4 quadrants. Soft, nontender, nondistended. : Cheema in place. Normal external genitalia. Rectal: Deferred. Skin: Warm, dry. Intact. Extremities: 2+ radial pulses bilaterally. No lower extremity edema. Neuro: Sedated. laboratory and microbiology Laboratory Tests 10/26/24 20:13 10/26/24 03:35 Test 10/26/24 03:35 Range/Units Serum Glucose 107 H 74-106 mg/dL Assessment/Plan Impression: Acute hypoxic respiratory failure On mechanical ventilator S/p cardiac arrest, ROSC Shock Acute exacerbation of COPD Acute on chronic CHF with reduced ejection fraction Coronary artery disease, s/p PCI x2 Non-ST elevation WA Elevated troponin Leukocytosis Thrombocytopenia Polycythemia vera Urinary tract infection GI hemorrhage Transaminitis, likely due to alcohol use disorder ETOH abuse Hx of nicotine dependence Substance use (cannabis) Events: Remains on vent support On AC mode; RR 24, VT 500, PEEP 5, FiO2 30% Sedated on Propofol, Versed, Fentanyl ABG reviewed, notable for alkalemia CXR reviewed, demonstrates bibasilar opacities, may reflect pneumonia or aspiration. Devices in place. MRI brain shows findings c/w diffuse anoxic brain injury. Continue antibiotics. Tube feeds for nutritional support Monitor renal function Monitor electrolytes. Supplement as necessary. Supplement magnesium Taper sedation as tolerated Poor prognosis Labs and imaging reviewed. Rest of plan as noted below. Plan: s/p intubation on mechanical ventilator. On AC mode; RR 24, VT 500, PEEP 5, FiO2 30% Titrate FIO2 to keep O2 saturation above 90%. VAP bundle. Daily ABG and CXR while intubated Sedate for ventilator synchrony Patient with epistaxis, right naris. Continue antibiotics. F/u cultures. Tube feeds for nutritional support Start pressors if necessary to maintain a mean arterial blood pressure greater than 65 mmHg. Monitor renal function Monitor electrolytes. Supplement as necessary. Monitor ins and outs. Maintain euvolemia. GI prophylaxis. DVT prophylaxis. Prognosis: Poor given patient's multiple co-morbidities. Condition: Critical Rest of plan per hospitalist and other consultants. A total of 35 minutes of critical care time was spent reviewing the patient record, examining the patient, making a diagnostic and therapeutic plan, discussing this plan with the medical personnel, following up on diagnostic studies and following the patient for clinical stability excluding any and all procedures. At least 50% of this time was spent in direct, [id number] contact. Thank you, Dr. Greenfield, for allowing me to participate in this patient's care. Further recommendations will depend on the patient's clinical course. Please do not hesitate to contact me if you have any questions or concerns. This medical document was created using an electronic medical record system with [employer] dictation system. Although these documentations are being carefully reviewed, there may still be some phonetic and typographical changes. The errors are purely typographical, due to imperfection on the software program, and do not reflect any compromise in the patient's medical care. Plan discussed with: Other (YELITZA Wray) Critical Care Time(min): 35 LAZARO ALTMAN MD Oct 26, 2024 22:14
--- NOTE | 2024-10-26 22:27 | DVHEEG2 ---
Neurology EEG Procedural Note Procedural Note EXAM DATE: 10/26/2024 REFERRING DOCTOR: Dr. Avalos TECHNIQUE: Eighteen channels of EEG, 2 channels of EOG, and 1 channel of EKG were recorded using the [employer] 10/20 system. CLINICAL DATA: The patient was referred for an EEG evaluation for the evidence of seizure disorder. MEDICATIONS: See the chart BACKGROUND ACTIVITY: There was environmental artifacts in the recording. Likely this EEG showed diffuse low amplitude mixed delta and theta activity over both hemispheres ACTIVATION: Hyperventilation: Not done Photic Stimulation: Not done Sleep: Nonresponsiveness IMPRESSION: This is on remarkably abnormal EEG, this EEG seen in severe cerebral dysfunction due to metabolic/hypoxic encephalopathy or medication effects, please correlate clinically The EKG channel showed a regular heart rate of 60 per minute[place] [address]. AYANA AVALOS MD Oct 26, 2024 22:27
--- NOTE | 2024-10-26 22:42 | DVHPN2 ---
Consult Progress Note Subjective Review of Systems: Not Done Other Systems: Patient was seen and evaluated in follow up in the ICU, as I am covering for Dr Davis, cardiology services over the weekend. Patient is intubated and sedated on ventilator. 30% FiO2. WBC 11, K 3.3, AST 94 Creatine kinsease 200. MRI brain findings are compatible with diffuse anoxic injury. Mild diffuse effacement of the CSF spaces. The cerebellar tonsils are minimally low-lying although there is no significant crowding at the foramen magnum at this time. Objective vital signs Vital Sign Date Time Temp Pulse Resp B/P (MAP) Pulse Ox O2 Delivery O2 Flow Rate FiO2 10/26/24 16:05 63 27 118/77 (91) 97 30 10/26/24 15:00 99.1 210.4 10/26/24 14:30 Mechanical Ventilator+ Total Intake and Output 10/25/24 10/25/24 10/26/24 15:00 23:00 07:00 Intake Total 251.1 ml 479.4 ml 913.6 ml Output Total 550 ml 700 ml Balance 251.1 ml -70.6 ml 213.6 ml medications Current Medications Medications Dose Ordered Sig/Abundio Route Start Time Stop Time Status Last Admin Dose Admin Propofol 100 ml @ 2.4 mls/hr Q24H IV 10/21/24 10:45 10/26/24 11:34 14.4 MLS/HR Midazolam HCl 50 ml @ 1 mls/hr Q24H IV 10/21/24 11:00 10/26/24 09:08 6 MLS/HR Fentanyl Citrate 250 ml @ 2.5 mls/hr Q24H IV 10/21/24 11:00 10/26/24 05:34 20 MLS/HR Diagnostic Test (Pha) 1 strip ACHS 10/21/24 17:00 10/26/24 14:52 1 STRIP Insulin Human Regular ACHS SC 10/21/24 17:00 10/24/24 16:46 2 UNITS Dextrose 50 ml UD PRN IV 10/21/24 14:45 Aspirin 81 mg DAILY PO 10/22/24 10:00 Hold 10/25/24 10:53 81 MG Ticagrelor 90 mg BID PO 10/21/24 22:00 Hold 10/25/24 10:52 90 MG Norepinephrine Bitartrate 32 mg/ Sodium Chloride 250 ml @ 0.938 mls/ hr Q24H IV 10/21/24 17:00 10/26/24 10:56 0.938 MLS/HR Vasopressin 20 units/Sodium Chloride 100 ml @ 9 mls/hr Q11H7M IV 10/21/24 17:00 Vancomycin HCl 0 ml @ 0 mls/hr UD IV 10/22/24 11:15 Piperacillin Sod/ Tazobactam Sod 100 ml @ 25 mls/hr Q6HR IV 10/22/24 12:00 10/26/24 11:37 25 MLS/HR Enteral Nutritional Formula 1,000 ml 30ML/HR GT 10/22/24 11:15 10/23/24 13:38 1,000 ML Docusate Sodium 100 mg BID GT 10/22/24 22:00 10/25/24 21:36 100 MG Atorvastatin Calcium 40 mg HS PO 10/22/24 22:00 10/25/24 21:36 40 MG Pantoprazole Sodium 40 mg BID IV 10/22/24 22:00 10/26/24 10:51 40 MG Sodium Chloride 10 ml QSHIFT@10,22 IV 10/24/24 10:00 10/26/24 10:52 10 ML Amiodarone HCl 200 mg Q12HR PO 10/24/24 22:00 10/26/24 10:52 200 MG Vancomycin HCl 250 ml @ 250 mls/hr Q8H IV 10/26/24 01:00 10/26/24 09:07 250 MLS/HR Examination: GENERAL:Abnormal (intubated), HEENT:Normal, NECK:Normal, LUNGS:Abnormal (diminished breath sounds ), CVS:Normal, SKIN:Normal, NEURO:Abnormal (sedated ) laboratory and microbiology Laboratory Tests 10/26/24 03:35 Test 10/26/24 03:35 Range/Units Serum Glucose 107 H 74-106 mg/dL Problem List/Assessment/Plan Problem List/Assessment/Plan Non ST-elevation myocardial infarction s/p PCI to the LCx x 1 CATALINO. Pulseless ventricular fibrillation arrest. Sustained ventricular tachycardia status post direct current cardioversion. Cardiopulmonary arrest with ROSC. Coronary artery disease status post PTCA x2 CATALINO, on ASA. Ischemic cardiomyopathy with LVEF <20-25%. Thrombocytopenia. Hypertension. Dyslipidemia. Pre-DM. HX of tobacco use. Alcohol dependance. Plan/Recommendation Continued all current supportive medical care. Patient has been seen by William Childress NP on my behalf, him and I discussed the plan with the patient. VFib arrest s/p cardiac catheterization and coronary angiogram with successful balloon angioplasty and stent placement of the LCx. Echo reviewed and shows EF of 20-25% with severe global hypokinesis of the inferior and lateral nicholson. Consider GDMT with optimal BP. Continue DAPT therapy as discussed with Dr. Davis. Upper GI bleed, monitor H&H, transfuse for hemoglobin less than 7. Continue lipid-lowering agent. Continue Amiodarone. Continue GI recommendations. DVT/VTE prophylaxis with SCDs. Patient being weaned off of sedation for possible CPAP trial today. Additional plan as per the hospital course. Plan discussed with: Other Date of Service: Oct 26, 2024 Billing Provider: LILIANA LEVI MD Cardiology Common Codes: [id number] INP/OBS CARE (High), [id number] CARE 30-74 MIN LILIANA LEVI MD Oct 26, 2024 16:20
[2024-10-27] VITALS (106 sets, daily range): BP systolic 95–153; BP diastolic 49–95; PULSE 43–64; RESP 14–35; TEMP 97.2–100.9; O2SAT 96–100
[2024-10-27 05:00] LABS: Basophils # (auto) 0.1 10 ^3/uL (0-0.2); Basophils % (auto) 0.4 % (0.0-2.0); Eosinophils # (auto) 0.2 10 ^3/uL (0-0.8); Eosinophils % (auto) 1.8 % (0.0-7.0); Hematocrit 46.7 % (41.0-53.0); Hemoglobin 15.6 g/dL (13.5-17.5); Lymphocytes # (auto) 0.9 10 ^3/uL (0.4-5.4); Lymphocytes % (auto) 7.3 % (10.0-50.0); Mean Corpuscular Hemoglobin 31.6 pg (28.0-32.0); Mean Corpuscular Hgb Conc. 33.3 g/dL (32.0-36.0); Mean Corpuscular Volume 94.9 fL (80.0-100.0); Monocytes # (auto) 1.1 10 ^3/uL (0-1.3); Monocytes % (auto) 9.1 % (0.0-12.0); Neutrophils % (auto) 81.4 % (37.0-80.0); Nucleated Red Blood Cells % 0.2 %; Platelet Count (auto) 136 10^3/uL (140-450); Red Blood Cells 4.92 10^6/uL (4.5-5.90); Red Cell Distribution Width 14.9 % (11.8-14.3); White Blood Cell 12.3 10^3/uL (4.4-10.8)
[2024-10-27 05:16] LABS: Alanine Aminotransferase 20 U/L (7-40); Albumin 3.4 g/dL (3.2-4.8); Alkaline Phosphatase 51 U/L (46-116); Anion Gap 10 (5-15); BUN/Creatinine Ratio 18.6 (10.0-20.0); Blood Urea Nitrogen 13 mg/dL (9-23); Carbon Dioxide 24 mmol/L (20-31); Potassium 3.7 mmol/L (3.5-5.1); Sodium 144 mmol/L (136-145)
[2024-10-27 05:17] LABS: Total Protein 5.9 g/dL (5.7-8.2)
[2024-10-27 05:22] LABS: Aspartate Aminotransferase 88 U/L (13-40); Chloride 110 mmol/L (98-107); Glucose 117 mg/dL (74-106)
[2024-10-27 05:37] LABS: Bilirubin, Total 0.5 mg/dL (0.2-1.0)
[2024-10-27 07:44] LABS: Base Excess 1.6 mmol/L (-2.0-3.0)
[2024-10-27] MEDS: CLOPIDOGREL BISULFATE 75 MG TAB PO SCH (10:00)
--- NOTE | 2024-10-27 10:44 | DVH ---
EXAM: XR Chest, 1 View CLINICAL INDICATION: Intubated TECHNIQUE: Frontal view of the chest. COMPARISON: XY CHEST PORTABLE on DOS: 10/26/24, XY CHEST XRAY 1 VIEW on DOS: 10/26/24, XY CHEST PORTABL E on DOS: 10/25/24, XY CHEST PORTABLE on DOS: 10/24/24, XY CHEST PORTABLE on DOS: 10/23/24 FINDINGS: LUNGS AND PLEURAL SPACES: Bibasilar atelectasis or pneumonia. No pneumothorax. HEART: Unremarkable. No cardiomegaly. MEDIASTINUM: Unremarkable. Normal mediastinal contour. BONES/JOINTS: Unremarkable. No acute fracture. TUBES, LINES AND DEVICES: Stable tubes and lines. OTHER FINDINGS: . None. . .. IMPRESSION: Bibasilar atelectasis or pneumonia.
--- NOTE | 2024-10-27 10:47 | DVHPNRES ---
Progress Note Date Seen: Oct 27, 2024 Resident Creating Document: NELSON HANSEN RESIDENT Medical Necessity Reason Pt with a Central, PICC or Fol: Yes The following are medically ne: Central Line, Cheema Catheter Reason for cheema catheter: Strict I&O Subjective Review of Systems Overall patient is hemodynamically stable , continues to have abdominal fasciculations. Objective vital signs Vital Sign Date Time Temp Pulse Resp B/P (MAP) Pulse Ox O2 Delivery O2 Flow Rate FiO2 10/27/24 10:16 53 24 129/73 (91) 98 30 10/27/24 06:45 99.3 210.7 10/27/24 06:00 Mechanical Ventilator+ Total Intake and Output 10/26/24 10/26/24 10/27/24 15:00 23:00 07:00 Intake Total 695.190 ml 1089.138 ml 678.5 ml Output Total 652 ml 602 ml Balance 695.190 ml 437.138 ml 76.5 ml medications Current Medications Medications Dose Ordered Sig/Abundio Route Start Time Stop Time Status Last Admin Dose Admin Propofol 100 ml @ 2.4 mls/hr Q24H IV 10/21/24 10:45 10/26/24 23:35 14.4 MLS/HR Midazolam HCl 50 ml @ 1 mls/hr Q24H IV 10/21/24 11:00 10/27/24 09:12 4 MLS/HR Fentanyl Citrate 250 ml @ 2.5 mls/hr Q24H IV 10/21/24 11:00 10/26/24 23:11 12.5 MLS/HR Diagnostic Test (Pha) 1 strip ACHS 10/21/24 17:00 10/27/24 06:42 1 STRIP Insulin Human Regular ACHS SC 10/21/24 17:00 10/24/24 16:46 2 UNITS Dextrose 50 ml UD PRN IV 10/21/24 14:45 Aspirin 81 mg DAILY PO 10/22/24 10:00 Hold 10/25/24 10:53 81 MG Norepinephrine Bitartrate 32 mg/ Sodium Chloride 250 ml @ 0.938 mls/ hr Q24H IV 10/21/24 17:00 10/26/24 10:56 0.938 MLS/HR Vasopressin 20 units/Sodium Chloride 100 ml @ 9 mls/hr Q11H7M IV 10/21/24 17:00 Vancomycin HCl 0 ml @ 0 mls/hr UD IV 10/22/24 11:15 Piperacillin Sod/ Tazobactam Sod 100 ml @ 25 mls/hr Q6HR IV 10/22/24 12:00 10/27/24 05:48 25 MLS/HR Enteral Nutritional Formula 1,000 ml 30ML/HR GT 10/22/24 11:15 10/23/24 13:38 1,000 ML Docusate Sodium 100 mg BID GT 10/22/24 22:00 10/26/24 21:45 100 MG Atorvastatin Calcium 40 mg HS PO 10/22/24 22:00 10/26/24 21:45 40 MG Pantoprazole Sodium 40 mg BID IV 10/22/24 22:00 10/26/24 21:40 40 MG Sodium Chloride 10 ml QSHIFT@10,22 IV 10/24/24 10:00 10/26/24 21:40 10 ML Amiodarone HCl 200 mg Q12HR PO 10/24/24 22:00 10/26/24 21:45 200 MG Vancomycin HCl 250 ml @ 250 mls/hr Q8H IV 10/26/24 01:00 10/27/24 09:11 250 MLS/HR Clopidogrel Bisulfate 75 mg DAILY PO 10/27/24 10:00 Levetiracetam 100 ml @ 400 mls/hr BID IV 10/27/24 10:00 Examination: GENERAL:Normal (Sedated vented), HEENT:Normal, NECK:Normal, LUNGS:Normal (Basal rales), CVS:Normal (Maintaining map over 65 without any med vasopressor support), ABDOMEN:Normal (Abdomen, clonus noted.), MSK:Normal, SKIN:Normal, NEURO:Normal, :Normal laboratory and microbiology Laboratory Tests 10/27/24 04:20 Test 10/27/24 04:20 Range/Units Serum Glucose 117 H 74-106 mg/dL Microbiology Date/Time Source Procedure Growth Status 10/22/24 18:25 Nose MRSA Screen - Final Complete 10/21/24 14:56 Blood Blood Culture - Final NO GROWTH AFTER 5 DAYS OF INCUBATION. Complete 10/21/24 10:25 Voided Urine Urine Culture - Final Complete 10/21/24 10:24 Sputum Gram Stain - Final Complete 10/21/24 10:24 Respiratory Culture - Final Escherichia coli Complete Labs and/or images reviewed: Labs reviewed by me, Image(s) reviewed by me Problem List/Assessment/Plan Problem List/Assessment/Plan ICU Course: A 54-year-old man with a significant medical history, including PTCA with two CATALINO (2017, 2020), hernia repair, vertebral fusion, and other conditions, presented to the ER via EMS after a cardiopulmonary arrest. He was found unresponsive at an imaging center, received CPR and AED shocks, and was intubated upon arrival. He experienced pulseless ventricular tachycardia, was defibrillated, and achieved ROSC. Initial EKG showed sinus tachycardia with ischemia, and a second EKG revealed global ischemia. Troponin levels were rising. His reported symptoms of SOB, chest discomfort, and poor appetite the previous day. His medical history includes coronary artery disease, hypertension, dyslipidemia, chronic thrombocytopenia, prediabetes, peripheral neuropathy, chronic back pain, anxiety, depression, history of GI bleed, PUD, and a smoking history of 30 pack-years. patient was sedated vented but unfortunately was found to have anoxic brain injury with poor prognosis unlikely to recover from vegetative state. Hospitalization day: 7 A. Neurology: # anoxic brain injury: Unfortunately patient sustained anoxic brain injury, CT unremarkable, MRI shows effacement and anoxic brain injury, EEG supportive. Appreciate input of Neurology. # abdominal myoclonus: anoxic brain injury related likely, patient is started on Keppra 500 b.i.d. appreciate neurology input. # sedation : Versed, propofol, fentanyl # tobacco use disorder # alcohol use disorder # cannabis use disorder B. Cardiology: # shock likely cardiogenic: Off of norepinephrine , maintaining map over 65 # had cardiac arrest 2 times status post ROSC due to ? Arrhythmia ? ACS, unknown down time # acute on chronic heart failure with reduced ejection fraction likely ischemic cardiopathy # coronary artery disease, history of HI status post PCI 2 times status post restenting # NSTEMI status post cardiac catheterization and PCI PTCA and stenting of the circumflex coronary artery.: Continue statin aspirin and Brilinta SP ruled out intracranial bleeding. #V-tach, sustained, currently sinus rhythm : Status post cardioversion amiodarone drip, keep potassium over 4 and magnesium over 2. C. Respiratory: # acute hypoxic respiratory failure due to cardiac arrest On mechanical ventilator, #? acute exacerbation of COPD #Vent Settings: AC/VC tidal volume 500, RR 26, peep of 5. D. Gastrointenstinal: # GI bleed, upper GI/lower GI bleed, history of upper GI ulcers as per family, history of hemorrhoids: On IV Protonix # history of gastric/duodenal ulcers # transaminitis likely due to alcohol use disorder: Monitor CAP daily E. Geniotourinary: # on Cheema's catheter: Close input output satisfactory. F. Infectious Disease: # sepsis with septic shock likely due to? Aspiration pneumonia, the source of infection not ruled out yet : Continue vancomycin and Zosyn extended keep a close eye on renal functions. G. Hematology & Oncology: # polycythemia likely secondary to excessive smoking, improved # coagulopathy, improved # thrombocytopenia, recovered, monitor CBC daily H. Nephrology: # metabolic acidosis with compensatory respiratory alkalosis , improved I. Endocrine: unremarkable J. MSK: Unremarkable K. Prophylaxis: PPI: IV Protonix 40 mg b.i.d. DVT: Lovenox Currently on hold because of GI bleed SCDs L. Lines & Drains (with insertion date): IV Right femoral triple-lumen catheter Right femoral A-line M. Drips: Norepinephrine OFF Fentanyl Propofol Versed N. Disposition: Remains in ICU , long dw family during which they were updated, code status changed to DNR DNI, family is gathering to Discuss further. Appropriate empathy given, Chapel support provided. The plan was discussed with the ICU attending Dr. Fraga. The patient care consists of total 112 minutes of critical care time excluding the procedures. Dictated by Nelson Hansen MD with 3M MModal Fluency. Plan discussed with: Patient, Spouse, Son, Other (Primary team) Date of Service: Oct 27, 2024 Billing Provider: NICK FRAGA MD Common Visit Codes: 25597-XKRPOPJP CARE 30-74 MIN, 77342-TENVXHTS CARE-EACH +30MIN (x2) NELSON HANSEN Oct 27, 2024 10:47 NICK FRAGA MD Oct 28, 2024 15:35
[2024-10-27] MEDS: levETIRAcetam 500 mg/100ml 100 ML IV SCH (11:12)
--- NOTE | 2024-10-27 11:33 | DVHPN2 ---
Progress Note - Dictate Date Seen: Oct 27, 2024 Medical Necessity Reason Pt with a Central, PICC or Fol: Yes The following are medically ne: Central Line, Cheema Catheter Reason for cheema catheter: Strict I&O Subjective Mr. Lewis is a 54 years old right-handed gentleman with a history of hypertension, COPD, coronary artery disease, heart attack, chronic back pain, he was brought to the hospital on 10/21/2024 with a chief company of cardiopulmonary arrest. I have seen and examined the patient, I have discussed with his nurse, son and [id number] in the room He is intubated, sedated, nonresponsive to stroke painful stimuli The pupil is slightly bigger on the right side, but with sluggish light reflex bilaterally Fentanyl 75 mcg/hour, Versed 4 mg/hour CBC, 10/21/2024: Respiratory acidosis WBC/HB/PLT/MCV, 10/25/2024, 12.3/617/95/94.1 : Unremarkable TBI/AST/ALT/AP, 10/25/2024: 0.6/100 06/08/2049 Troponin one high sensitivity, 10/21/2024: 16, 291, 462, 151 TG/HDL/LDL/HDL, 10/21/2024: 163/II/41/36 EE,10/26/2024: Remarkably abnormal EEG CT head, 10/21/2024: No acute intracranial process CT head, 10/25/2024: 1. Air-fluid levels and opacification of all paranasal sinuses. Findings consistent with pansinusitis. 2. No acute intracranial hemorrhage. 3. No CT findings of territorial ischemia. 4. Sulci and gyri are not well seen this may represent diffuse cerebral edema. 5. Subarachnoid hemorrhage versus previous administration of intravenous contrast MRI head, 10/26/2024 comparison, CT head dated 10/25/2024: 1. Findings are compatible with diffuse anoxic injury. 2. Mild diffuse effacement of the CSF spaces. The cerebellar tonsils are minimally low-lying although there is no significant crowding at the foramen magnum at this time.No acute intracranial hemorrhage. The questioned subarachnoid hemorrhage on CT is consistent with pseudo-subarachnoid hemorrhage in the setting of diffuse anoxic injury. vital signs Vital Sign Date Time Temp Pulse Resp B/P (MAP) Pulse Ox O2 Delivery O2 Flow Rate FiO2 10/27/24 10:54 56 16 128/73 98 30 10/27/24 10:45 100.4 212.7 10/27/24 08:00 Mechanical Ventilator+ Total Intake and Output 10/26/24 10/26/24 10/27/24 15:00 23:00 07:00 Intake Total 695.190 ml 1089.138 ml 678.5 ml Output Total 652 ml 602 ml Balance 695.190 ml 437.138 ml 76.5 ml medications Current Medications Medications Dose Ordered Sig/Abundio Route Start Time Stop Time Status Last Admin Dose Admin Propofol 100 ml @ 2.4 mls/hr Q24H IV 10/21/24 10:45 10/26/24 23:35 14.4 MLS/HR Midazolam HCl 50 ml @ 1 mls/hr Q24H IV 10/21/24 11:00 10/27/24 09:12 4 MLS/HR Fentanyl Citrate 250 ml @ 2.5 mls/hr Q24H IV 10/21/24 11:00 10/26/24 23:11 12.5 MLS/HR Diagnostic Test (Pha) 1 strip ACHS 10/21/24 17:00 10/27/24 06:42 1 STRIP Insulin Human Regular ACHS SC 10/21/24 17:00 10/24/24 16:46 2 UNITS Dextrose 50 ml UD PRN IV 10/21/24 14:45 Aspirin 81 mg DAILY PO 10/22/24 10:00 Hold 10/25/24 10:53 81 MG Norepinephrine Bitartrate 32 mg/ Sodium Chloride 250 ml @ 0.938 mls/ hr Q24H IV 10/21/24 17:00 10/26/24 10:56 0.938 MLS/HR Vasopressin 20 units/Sodium Chloride 100 ml @ 9 mls/hr Q11H7M IV 10/21/24 17:00 Vancomycin HCl 0 ml @ 0 mls/hr UD IV 10/22/24 11:15 Piperacillin Sod/ Tazobactam Sod 100 ml @ 25 mls/hr Q6HR IV 10/22/24 12:00 10/27/24 05:48 25 MLS/HR Enteral Nutritional Formula 1,000 ml 30ML/HR GT 10/22/24 11:15 10/23/24 13:38 1,000 ML Docusate Sodium 100 mg BID GT 10/22/24 22:00 10/26/24 21:45 100 MG Atorvastatin Calcium 40 mg HS PO 10/22/24 22:00 10/26/24 21:45 40 MG Pantoprazole Sodium 40 mg BID IV 10/22/24 22:00 10/27/24 11:12 40 MG Sodium Chloride 10 ml QSHIFT@10,22 IV 10/24/24 10:00 10/27/24 11:13 10 ML Amiodarone HCl 200 mg Q12HR PO 10/24/24 22:00 10/26/24 21:45 200 MG Vancomycin HCl 250 ml @ 250 mls/hr Q8H IV 10/26/24 01:00 10/27/24 09:11 250 MLS/HR Clopidogrel Bisulfate 75 mg DAILY PO 10/27/24 10:00 Levetiracetam 100 ml @ 400 mls/hr BID IV 10/27/24 10:00 10/27/24 11:12 400 MLS/HR Acetaminophen 650 mg Q6HP PRN GT 10/27/24 11:15 UNV objective The patient is well-nourished and well-developed with no distress. The patient is intubated MENTAL STATUS: Subjective CRANIAL NERVES: Pupils are round and slightly reactive, Rt: 4mm, Lt: 3-4 mm.There are no corneal reflexes and weak doll's eyes phenomenon. No signs of facial weakness. There are weak gagging or coughing reflexes SENSATION: Subjective MOTOR: Normal tone in the upper and lower extremity. Normal muscle bulk. No fasciculations. No spontaneous movement. REFLEXES: Deep tendon reflexes are symmetrical. No pathological reflexes. CEREBELLAR/COORDINATION: Deferred GAIT/STATION: deferred laboratory and microbiology Laboratory Tests 10/27/24 04:20 Test 10/27/24 04:20 Range/Units Serum Glucose 117 H 74-106 mg/dL Problem List Coma Metabolic encephalopathy Hypoxic encephalopathy Cardiopulmonary arrest Acute respiratory failure Diffuse brain edema Abdominal muscle twitching Segmental myoclonus versus seizure Abnormal CT head Diffuse brain edema Subarachnoid hemorrhage, less likely Assessment/Plan Monitoring Supportive treatment ICU care Stabilize vitals/pressor drip Respiratory support/vent management Oxygen Keppra 500 mg IV b.i.d. Okay to resume antiplatelet agent (talked to his RN) Antibiotics Hold off aspirin and Brilinta More recommendation per clinical course This medical document was created using an electronic medical record system with Tripping computerized dictation system. Although this document has been carefully reviewed, there may still be some phonetic and typographical errors. These areas are purely typographical due to imperfections of the software programs, and do not reflect any compromise in the patient's medical care Prognosis guarded Plan discussed with: Daughter, Son, Other Critical Care Time(min): 35 AYANA AVALOS MD Oct 27, 2024 11:33
--- NOTE | 2024-10-27 16:50 | DVHPNRES ---
Progress Note Date Seen: Oct 27, 2024 Resident Creating Document: BULL VELASCO RESIDENT Medical Necessity Reason Pt with a Central, PICC or Fol: Yes The following are medically ne: Central Line, Cheema Catheter Reason for cheema catheter: Strict I&O Subjective Review of Systems Patient seen and examined at bedside. Intubated. Not on vasopressors. On sedation. Feeding via G-tube as per toleration. Appropriate urine output. Recent brain MRI showed severe anoxic brain injury. No acute GI bleed or diarrhea. Objective vital signs Vital Sign Date Time Temp Pulse Resp B/P (MAP) Pulse Ox O2 Delivery O2 Flow Rate FiO2 10/27/24 16:05 51 24 134/77 (96) 100 30 10/27/24 14:15 99.5 211.1 10/27/24 14:00 Mechanical Ventilator+ Total Intake and Output 10/26/24 10/26/24 10/27/24 15:00 23:00 07:00 Intake Total 695.190 ml 1089.138 ml 678.5 ml Output Total 652 ml 602 ml Balance 695.190 ml 437.138 ml 76.5 ml medications Current Medications Medications Dose Ordered Sig/Abundio Route Start Time Stop Time Status Last Admin Dose Admin Propofol 100 ml @ 2.4 mls/hr Q24H IV 10/21/24 10:45 10/26/24 23:35 14.4 MLS/HR Midazolam HCl 50 ml @ 1 mls/hr Q24H IV 10/21/24 11:00 10/27/24 09:12 4 MLS/HR Fentanyl Citrate 250 ml @ 2.5 mls/hr Q24H IV 10/21/24 11:00 10/26/24 23:11 12.5 MLS/HR Diagnostic Test (Pha) 1 strip ACHS 10/21/24 17:00 10/27/24 11:50 1 STRIP Insulin Human Regular ACHS SC 10/21/24 17:00 10/24/24 16:46 2 UNITS Dextrose 50 ml UD PRN IV 10/21/24 14:45 Aspirin 81 mg DAILY PO 10/22/24 10:00 Hold 10/25/24 10:53 81 MG Norepinephrine Bitartrate 32 mg/ Sodium Chloride 250 ml @ 0.938 mls/ hr Q24H IV 10/21/24 17:00 10/26/24 10:56 0.938 MLS/HR Vasopressin 20 units/Sodium Chloride 100 ml @ 9 mls/hr Q11H7M IV 10/21/24 17:00 Vancomycin HCl 0 ml @ 0 mls/hr UD IV 10/22/24 11:15 Piperacillin Sod/ Tazobactam Sod 100 ml @ 25 mls/hr Q6HR IV 10/22/24 12:00 10/27/24 12:13 25 MLS/HR Enteral Nutritional Formula 1,000 ml 30ML/HR GT 10/22/24 11:15 10/23/24 13:38 1,000 ML Docusate Sodium 100 mg BID GT 10/22/24 22:00 10/26/24 21:45 100 MG Atorvastatin Calcium 40 mg HS PO 10/22/24 22:00 10/26/24 21:45 40 MG Pantoprazole Sodium 40 mg BID IV 10/22/24 22:00 10/27/24 11:12 40 MG Sodium Chloride 10 ml QSHIFT@10,22 IV 10/24/24 10:00 10/27/24 11:13 10 ML Amiodarone HCl 200 mg Q12HR PO 10/24/24 22:00 10/26/24 21:45 200 MG Vancomycin HCl 250 ml @ 250 mls/hr Q8H IV 10/26/24 01:00 10/27/24 09:11 250 MLS/HR Clopidogrel Bisulfate 75 mg DAILY PO 10/27/24 10:00 10/27/24 12:13 75 MG Levetiracetam 100 ml @ 400 mls/hr BID IV 10/27/24 10:00 10/27/24 11:12 400 MLS/HR Acetaminophen 650 mg Q6HP PRN GT 10/27/24 11:15 Examination General Appearance: Intubated, mechanically ventilated. Sedated. Head Exam: Normal inspection Neck Exam: Normal inspection. Non-tender. Normal alignment Pulmonary/Respiratory: Chest non-tender. Clear bilateral breath sounds Cardiovascular/Chest: Regular rate and rhythm. No murmurs. No JVD. Peripheral Pulses: 2+ Radial (R). 2+ Radial (L). 2+ Pedal (R). 2+ Pedal (L) Abdominal Exam: Normal bowel sounds. Soft. Nontender. No hepatospenomegaly. No masses Ankle Exam: Negative ankle edema Lower extremities: Negative lower extremity edema Neuro/Mental Status: Sedated laboratory and microbiology Laboratory Tests 10/27/24 04:20 Test 10/27/24 04:20 Range/Units Serum Glucose 117 H 74-106 mg/dL Microbiology Date/Time Source Procedure Growth Status 10/22/24 18:25 Nose MRSA Screen - Final Complete 10/21/24 14:56 Blood Blood Culture - Final NO GROWTH AFTER 5 DAYS OF INCUBATION. Complete 10/21/24 10:25 Voided Urine Urine Culture - Final Complete 10/21/24 10:24 Sputum Gram Stain - Final Complete 10/21/24 10:24 Respiratory Culture - Final Escherichia coli Complete Problem List/Assessment/Plan Problem List/Assessment/Plan Cardiac arrest Upper GI bleed: Stopped Polycythemia vera Thrombocytopenia Transaminitis Transaminitis due to ischemic liver NSTEMI Plan/ recommendation Dr Coto -recent brain MRI showed diffuse anoxic brain injury. Stopped Brilinta and blood thinners given suspected small subarachnoid hemorrhage. -continue supportive care -no active GI bleeding at this point, continue Protonix 40 mg p.o. b.i.d. -nutrition via G-tube, currently receiving Jevity. Goal at least 30 mL/hour. -patient's prognosis remained poor, follow with neurology for neurological status. -GI team will be standing by in case if there is any active GI bleed. -hemoglobin and hematocrit currently stable, continue to monitor H&H. Plan discussed with: Other (RN) BULL VELASCO RESIDENT Oct 27, 2024 16:50
[2024-10-28] VITALS (105 sets, daily range): BP systolic 101–157; BP diastolic 51–83; PULSE 45–66; RESP 12–32; TEMP 83.5–100.6; O2SAT 90–100
[2024-10-28 04:31] LABS: Basophils # (auto) 0.1 10 ^3/uL (0-0.2); Basophils % (auto) 0.5 % (0.0-2.0); Eosinophils # (auto) 0.1 10 ^3/uL (0-0.8); Eosinophils % (auto) 0.9 % (0.0-7.0); Hematocrit 48.3 % (41.0-53.0); Hemoglobin 15.9 g/dL (13.5-17.5); Lymphocytes # (auto) 1.4 10 ^3/uL (0.4-5.4); Lymphocytes % (auto) 11.1 % (10.0-50.0); Mean Corpuscular Hemoglobin 31.2 pg (28.0-32.0); Mean Corpuscular Volume 94.4 fL (80.0-100.0); Monocytes # (auto) 1.3 10 ^3/uL (0-1.3); Monocytes % (auto) 9.7 % (0.0-12.0); Neutrophils # (auto) 10.1 10 ^3/uL (1.6-8.6); Neutrophils % (auto) 77.8 % (37.0-80.0); Nucleated Red Blood Cells % 0.3 %; Platelet Count (auto) 160 10^3/uL (140-450); Red Blood Cells 5.12 10^6/uL (4.5-5.90); Red Cell Distribution Width 15.1 % (11.8-14.3)
[2024-10-28 08:06] LABS: Sex Hormone Binding Globulin 25.4 nmol/L (19.3-76.4)
[2024-10-28 08:42] LABS: Base Excess -0.5 mmol/L (-2.0-3.0)
[2024-10-28 08:53] LABS: Alanine Aminotransferase 35 U/L (7-40); Albumin 3.5 g/dL (3.2-4.8); Alkaline Phosphatase 72 U/L (46-116); Anion Gap 13 (5-15); BUN/Creatinine Ratio 17.6 (10.0-20.0); Blood Urea Nitrogen 13 mg/dL (9-23); Calcium 9.2 mg/dL (8.7-10.4); Carbon Dioxide 21 mmol/L (20-31); Glucose 96 mg/dL (74-106)
[2024-10-28 08:54] LABS: Bilirubin, Total 0.5 mg/dL (0.2-1.0); Total Protein 6.2 g/dL (5.7-8.2)
[2024-10-28 09:01] LABS: Aspartate Aminotransferase 99 U/L (13-40); Chloride 116 mmol/L (98-107); Potassium 3.2 mmol/L (3.5-5.1); Sodium 150 mmol/L (136-145)
--- NOTE | 2024-10-28 10:14 | CONS ---
Pharmacy Clinical Information: From Heart Failure Fallout Report on CQM Application, Charles Lewis is a 54 year old male with PMH of emphysema, COPD, HTN, HLD, OR, CAD s/p PTCA, s/p cardiac arrest. His home medications for heart failure include carvedilol, lisinopril. Patient is sedated, intubated, NPO, bradycardic, with vasopressors held. ACEi/ARB/ANRi, BB, MRA, SGLT2i not recommended at this time since patient is in critical condition and hemodynamically unstable. PACHECO OTT PHARMACIST Oct 28, 2024 10:14
--- NOTE | 2024-10-28 10:29 | DVHPN2 ---
Progress Note - Dictate Date Seen: Oct 28, 2024 Medical Necessity Reason Pt with a Central, PICC or Fol: Yes The following are medically ne: Central Line, Cheema Catheter Reason for cheema catheter: Strict I&O Subjective Mr. Lewis is a 54 years old right-handed gentleman with a history of hypertension, COPD, coronary artery disease, heart attack, chronic back pain, he was brought to the hospital on 10/21/2024 with a chief company of cardiopulmonary arrest. I have seen and examined the patient, I have discussed with his nurse. Nurse reported earlier today, the left, not right, pupil was bigger, but on physical examination, the people are equally round, 4mm, and slightly reactive to light He is intubated, sedated, nonresponsive to stroke painful stimuli The jerking movement in the abdomen in the less intense but ongoing Fentanyl 100 mcg/hour, Versed 5 mg/hour CBC, 10/21/2024: Respiratory acidosis WBC/HB/PLT/MCV, 10/25/2024, 12.3/617/95/94.1 : Unremarkable TBI/AST/ALT/AP, 10/25/2024: 0.6/100 06/08/2049 Troponin one high sensitivity, 10/21/2024: 16, 291, 462, 151 TG/HDL/LDL/HDL, 10/21/2024: 163/II/41/36 EE,10/26/2024: Remarkably abnormal EEG CT head, 10/21/2024: No acute intracranial process CT head, 10/25/2024: 1. Air-fluid levels and opacification of all paranasal sinuses. Findings consistent with pansinusitis. 2. No acute intracranial hemorrhage. 3. No CT findings of territorial ischemia. 4. Sulci and gyri are not well seen this may represent diffuse cerebral edema. 5. Subarachnoid hemorrhage versus previous administration of intravenous contrast MRI head, 10/26/2024 comparison, CT head dated 10/25/2024: 1. Findings are compatible with diffuse anoxic injury. 2. Mild diffuse effacement of the CSF spaces. The cerebellar tonsils are minimally low-lying although there is no significant crowding at the foramen magnum at this time.No acute intracranial hemorrhage. The questioned subarachnoid hemorrhage on CT is consistent with pseudo-subarachnoid hemorrhage in the setting of diffuse anoxic injury. vital signs Vital Sign Date Time Temp Pulse Resp B/P (MAP) Pulse Ox O2 Delivery O2 Flow Rate FiO2 10/28/24 10:00 97 Mechanical Ventilator+ 30 30 10/28/24 10:00 53 10/28/24 10:00 25 10/28/24 07:50 135/67 (89) 10/28/24 06:45 97.5 207.5 Total Intake and Output 10/27/24 10/27/24 10/28/24 14:59 22:59 06:59 Intake Total 543.5 ml 690 ml 799 ml Output Total 575 ml 550 ml Balance 543.5 ml 115 ml 249 ml medications Current Medications Medications Dose Ordered Sig/Abundio Route Start Time Stop Time Status Last Admin Dose Admin Propofol 100 ml @ 2.4 mls/hr Q24H IV 10/21/24 10:45 10/26/24 23:35 14.4 MLS/HR Midazolam HCl 50 ml @ 1 mls/hr Q24H IV 10/21/24 11:00 10/28/24 07:39 5 MLS/HR Fentanyl Citrate 250 ml @ 2.5 mls/hr Q24H IV 10/21/24 11:00 10/27/24 23:30 10 MLS/HR Diagnostic Test (Pha) 1 strip ACHS 10/21/24 17:00 10/28/24 06:18 1 STRIP Insulin Human Regular ACHS SC 10/21/24 17:00 10/24/24 16:46 2 UNITS Dextrose 50 ml UD PRN IV 10/21/24 14:45 Aspirin 81 mg DAILY PO 10/22/24 10:00 Hold 10/25/24 10:53 81 MG Norepinephrine Bitartrate 32 mg/ Sodium Chloride 250 ml @ 0.938 mls/ hr Q24H IV 10/21/24 17:00 10/26/24 10:56 0.938 MLS/HR Vasopressin 20 units/Sodium Chloride 100 ml @ 9 mls/hr Q11H7M IV 10/21/24 17:00 Vancomycin HCl 0 ml @ 0 mls/hr UD IV 10/22/24 11:15 Piperacillin Sod/ Tazobactam Sod 100 ml @ 25 mls/hr Q6HR IV 10/22/24 12:00 10/28/24 06:29 25 MLS/HR Enteral Nutritional Formula 1,000 ml 30ML/HR GT 10/22/24 11:15 10/23/24 13:38 1,000 ML Docusate Sodium 100 mg BID GT 10/22/24 22:00 10/27/24 22:12 100 MG Atorvastatin Calcium 40 mg HS PO 10/22/24 22:00 10/27/24 22:13 40 MG Pantoprazole Sodium 40 mg BID IV 10/22/24 22:00 10/27/24 22:12 40 MG Sodium Chloride 10 ml QSHIFT@10,22 IV 10/24/24 10:00 10/27/24 22:13 10 ML Amiodarone HCl 200 mg Q12HR PO 10/24/24 22:00 10/27/24 22:13 200 MG Vancomycin HCl 250 ml @ 250 mls/hr Q8H IV 10/26/24 01:00 10/28/24 09:05 250 MLS/HR Clopidogrel Bisulfate 75 mg DAILY PO 10/27/24 10:00 10/27/24 12:13 75 MG Levetiracetam 100 ml @ 400 mls/hr BID IV 10/27/24 10:00 10/27/24 22:13 400 MLS/HR Acetaminophen 650 mg Q6HP PRN GT 10/27/24 11:15 objective The patient is well-nourished and well-developed with no distress. The patient is intubated MENTAL STATUS: Subjective CRANIAL NERVES: Pupils are round and slightly reactive.There are no corneal reflexes and weak doll's eyes phenomenon. No signs of facial weakness. There are no gagging or coughing reflexes SENSATION: Subjective MOTOR: Normal tone in the upper and lower extremity. Normal muscle bulk. No fasciculations. No spontaneous movement. REFLEXES: Deep tendon reflexes are symmetrical. No pathological reflexes. CEREBELLAR/COORDINATION: Deferred GAIT/STATION: deferred laboratory and microbiology Laboratory Tests 10/28/24 03:25 Test 10/28/24 03:25 Range/Units Serum Glucose 96 74-106 mg/dL Problem List Coma Metabolic encephalopathy Hypoxic encephalopathy Cardiopulmonary arrest Acute respiratory failure Diffuse brain edema Abdominal muscle twitching Segmental myoclonus versus seizure Abnormal CT head Diffuse brain edema Subarachnoid hemorrhage, less likely Assessment/Plan Monitoring Supportive treatment ICU care Stabilize vitals/pressor drip Respiratory support/vent management Oxygen Aspirin 81 mg daily Clopidogrel 75 mg daily Lipitor 40 mg daily Increase Keppra to 1000 mg IV b.i.d. Antibiotics More recommendation per clinical course This medical document was created using an electronic medical record system with [employer] dictation system. Although this document has been carefully reviewed, there may still be some phonetic and typographical errors. These areas are purely typographical due to imperfections of the software programs, and do not reflect any compromise in the patient's medical care Prognosis guarded Plan discussed with: Other Critical Care Time(min): 30 AYANA AVALOS MD Oct 28, 2024 10:29
[2024-10-28] MEDS: ACETAMINOPHEN 650 mg PER 20.3 mL UD GT PRN (11:06)
[2024-10-28] MEDS: POTASSIUM CHL 20MEQ/100ML 100 ML IV SCH (12:10)
--- NOTE | 2024-10-28 14:27 | DVHPNRES ---
Progress Note Date Seen: Oct 28, 2024 Resident Creating Document: JASON HANSEN RESIDENT Medical Necessity Reason Pt with a Central, PICC or Fol: Yes The following are medically ne: Central Line, Cheema Catheter Reason for cheema catheter: Strict I&O Subjective Review of Systems Patient has still remained sedated and vented, continues to have abdominal contraction, no major changes on vent settings. Had some mild rise of temperature likely due to neurogenic fever. Patient reports: No new complaints Objective vital signs Vital Sign Date Time Temp Pulse Resp B/P (MAP) Pulse Ox O2 Delivery O2 Flow Rate FiO2 10/28/24 12:06 100.0 10/28/24 12:00 30 10/28/24 12:00 51 25 120/57 (78) 96 10/28/24 12:00 Mechanical Ventilator+ Total Intake and Output 10/27/24 10/27/24 10/28/24 15:00 23:00 07:00 Intake Total 522.0 ml 790 ml 724 ml Output Total 575 ml 550 ml Balance 522.0 ml 215 ml 174 ml medications Current Medications Medications Dose Ordered Sig/Abundio Route Start Time Stop Time Status Last Admin Dose Admin Midazolam HCl 50 ml @ 1 mls/hr Q24H IV 10/21/24 11:00 10/28/24 12:35 5 MLS/HR Fentanyl Citrate 250 ml @ 2.5 mls/hr Q24H IV 10/21/24 11:00 10/27/24 23:30 10 MLS/HR Diagnostic Test (Pha) 1 strip ACHS 10/21/24 17:00 10/28/24 11:55 1 STRIP Insulin Human Regular ACHS SC 10/21/24 17:00 10/24/24 16:46 2 UNITS Dextrose 50 ml UD PRN IV 10/21/24 14:45 Aspirin 81 mg DAILY PO 10/22/24 10:00 Hold 10/25/24 10:53 81 MG Norepinephrine Bitartrate 32 mg/ Sodium Chloride 250 ml @ 0.938 mls/ hr Q24H IV 10/21/24 17:00 10/26/24 10:56 0.938 MLS/HR Vasopressin 20 units/Sodium Chloride 100 ml @ 9 mls/hr Q11H7M IV 10/21/24 17:00 Vancomycin HCl 0 ml @ 0 mls/hr UD IV 10/22/24 11:15 Piperacillin Sod/ Tazobactam Sod 100 ml @ 25 mls/hr Q6HR IV 10/22/24 12:00 10/28/24 12:09 25 MLS/HR Enteral Nutritional Formula 1,000 ml 30ML/HR GT 10/22/24 11:15 10/23/24 13:38 1,000 ML Docusate Sodium 100 mg BID GT 10/22/24 22:00 10/27/24 22:12 100 MG Atorvastatin Calcium 40 mg HS PO 10/22/24 22:00 10/27/24 22:13 40 MG Pantoprazole Sodium 40 mg BID IV 10/22/24 22:00 10/28/24 11:07 40 MG Sodium Chloride 10 ml QSHIFT@10,22 IV 10/24/24 10:00 10/28/24 11:07 10 ML Amiodarone HCl 200 mg Q12HR PO 10/24/24 22:00 10/27/24 22:13 200 MG Vancomycin HCl 250 ml @ 250 mls/hr Q8H IV 10/26/24 01:00 10/28/24 09:05 250 MLS/HR Clopidogrel Bisulfate 75 mg DAILY PO 10/27/24 10:00 10/28/24 11:06 75 MG Acetaminophen 650 mg Q6HP PRN GT 10/27/24 11:15 10/28/24 11:06 650 MG Levetiracetam 100 ml @ 400 mls/hr BID IV 10/28/24 22:00 Potassium Chloride 100 ml @ 50 mls/hr Q2H IV 10/28/24 11:00 10/28/24 14:59 10/28/24 12:10 50 MLS/HR Examination GENERAL:Normal (Sedated vented), HEENT:Normal, NECK:Normal, LUNGS:Normal (Basal rales), CVS:Normal (Maintaining map over 65 without any med vasopressor support), ABDOMEN:Normal (Abdomen, clonus noted.), MSK:Normal, SKIN:Normal, NEURO:Normal, :Normal, skin mottling noted, abdominal myoclonus continues, fixed dialated pupil laboratory and microbiology Laboratory Tests 10/28/24 03:25 Test 10/28/24 03:25 Range/Units Serum Glucose 96 74-106 mg/dL Microbiology Date/Time Source Procedure Growth Status 10/22/24 18:25 Nose MRSA Screen - Final Complete 10/21/24 14:56 Blood Blood Culture - Final NO GROWTH AFTER 5 DAYS OF INCUBATION. Complete 10/21/24 10:25 Voided Urine Urine Culture - Final Complete 10/21/24 10:24 Sputum Gram Stain - Final Complete 10/21/24 10:24 Respiratory Culture - Final Escherichia coli Complete Labs and/or images reviewed: Labs reviewed by me, Image(s) reviewed by me Problem List/Assessment/Plan Problem List/Assessment/Plan ICU Course: A 54-year-old man with a significant medical history, including PTCA with two CATALINO (2017, 2020), hernia repair, vertebral fusion, and other conditions, presented to the ER via EMS after a cardiopulmonary arrest. He was found unresponsive at an imaging center, received CPR and AED shocks, and was intubated upon arrival. He experienced pulseless ventricular tachycardia, was defibrillated, and achieved ROSC. Initial EKG showed sinus tachycardia with ischemia, and a second EKG revealed global ischemia. Troponin levels were rising. His reported symptoms of SOB, chest discomfort, and poor appetite the previous day. His medical history includes coronary artery disease, hypertension, dyslipidemia, chronic thrombocytopenia, prediabetes, peripheral neuropathy, chronic back pain, anxiety, depression, history of GI bleed, PUD, and a smoking history of 30 pack-years. patient was sedated vented but unfortunately was found to have anoxic brain injury with poor prognosis unlikely to recover from vegetative state. The patient's remains in the DNR DNI state family is visiting. Hospitalization day: 8 A. Neurology: # anoxic brain injury: Unfortunately patient sustained anoxic brain injury, CT unremarkable, MRI shows effacement and anoxic brain injury, EEG supportive. Appreciate input of Neurology. # abdominal myoclonus: anoxic brain injury related likely, patient is started on Keppra 500 b.i.d. appreciate neurology input>>> changed to 1000 mg b.i.d. # sedation : Versed, propofol, fentanyl , with lower sedation patient is having Cristobal-Nelson breathing # tobacco use disorder # alcohol use disorder # cannabis use disorder B. Cardiology: # shock likely cardiogenic, recovered: Off of norepinephrine , maintaining map over 65 # cardiac arrest 2 times: status post ROSC due to ? Arrhythmia ? ACS, unknown down time # acute on chronic heart failure with reduced ejection fraction likely ischemic cardiopathy # coronary artery disease, history of IA status post PCI 2 times status post restenting # NSTEMI status post cardiac catheterization and PCI PTCA and stenting of the circumflex coronary artery.: Continue statin aspirin and Brilinta SP ruled out intracranial bleeding. #V-tach, sustained, currently sinus rhythm : Status post cardioversion amiodarone drip, keep potassium over 4 and magnesium over 2. C. Respiratory: # acute hypoxic respiratory failure due to cardiac arrest On mechanical ventilator, #? acute exacerbation of COPD #Vent Settings: AC/VC tidal volume 500, RR 26, peep of 5. D. Gastrointenstinal: # GI bleed, upper GI/lower GI bleed, history of upper GI ulcers as per family, history of hemorrhoids: On IV Protonix # history of gastric/duodenal ulcers # transaminitis likely due to alcohol use disorder: Monitor CAP daily E. Geniotourinary: # on Cheema's catheter: Close input output satisfactory. F. Infectious Disease: # sepsis with septic shock likely due to? Aspiration pneumonia, the source of infection not ruled out yet : Continue vancomycin and Zosyn extended keep a close eye on renal functions. Resolved. Trend CBC daily, WBC is improving # Fever G. Hematology & Oncology: # polycythemia likely secondary to excessive smoking, improved # coagulopathy, improved # thrombocytopenia, recovered, monitor CBC daily, maintaining more than 150 H. Nephrology: # metabolic acidosis with compensatory respiratory alkalosis , improved # hypokalemia 3.2: Replenished this morning I. Endocrine: unremarkable J. MSK: Unremarkable K. Prophylaxis: PPI: IV Protonix 40 mg b.i.d. DVT: Lovenox Currently on hold because of GI bleed SCDs L. Lines & Drains (with insertion date): Right femoral triple-lumen catheter 2/4 Right femoral A-line 2/4 Cheema's catheter 2/4 M. Drips: Norepinephrine OFF Fentanyl Propofol Versed N. Disposition: Remains in ICU. Updated family members, family still deciding on cessation of aggressive care. Emotional support given. Code status remains DNR/DNI. The plan was discussed with the ICU attending Dr. Fraga. The patient care consists of total 83 minutes of critical care time excluding the procedures. Plan discussed with: Patient, Spouse, Son, Other (Primary team. ) My Orders My Orders Orders - JASON HANSEN Procedure Category Date Status Time Code Status CODE 10/27/24 Transmitted 19:41 Potassium Chl PHA 10/28/24 In Process 20meq/100ml 11:00 Date of Service: Oct 28, 2024 Billing Provider: NICK FRAGA MD Common Visit Codes: 59271-SBDCLEEE CARE 30-74 MIN, 69252-HLFYIZIW CARE-EACH +30MIN JASON HANSEN Oct 28, 2024 14:26 NICK FRAGA MD Oct 29, 2024 15:57
--- NOTE | 2024-10-28 16:14 | DVHPNRES ---
Progress Note Date Seen: Oct 28, 2024 Resident Creating Document: BULL VELASCO RESIDENT Medical Necessity Reason Pt with a Central, PICC or Fol: Yes The following are medically ne: Central Line, Cheema Catheter Reason for cheema catheter: Strict I&O Subjective Review of Systems Patient seen and examined at bedside. Intubated. Not on vasopressors. On sedation. Feeding via G-tube as per toleration. Family is considering DNI DNR, for comfort measures. No any other new complaints during nighttime. Objective vital signs Vital Sign Date Time Temp Pulse Resp B/P (MAP) Pulse Ox O2 Delivery O2 Flow Rate FiO2 10/28/24 15:55 45 29 112/66 (81) 97 30 10/28/24 14:00 Mechanical Ventilator+ 10/28/24 14:00 99.3 210.7 Total Intake and Output 10/27/24 10/27/24 10/28/24 15:00 23:00 07:00 Intake Total 522.0 ml 790 ml 724 ml Output Total 575 ml 550 ml Balance 522.0 ml 215 ml 174 ml medications Current Medications Medications Dose Ordered Sig/Abundio Route Start Time Stop Time Status Last Admin Dose Admin Midazolam HCl 50 ml @ 1 mls/hr Q24H IV 10/21/24 11:00 10/28/24 12:35 5 MLS/HR Fentanyl Citrate 250 ml @ 2.5 mls/hr Q24H IV 10/21/24 11:00 10/27/24 23:30 10 MLS/HR Diagnostic Test (Pha) 1 strip ACHS 10/21/24 17:00 10/28/24 11:55 1 STRIP Insulin Human Regular ACHS SC 10/21/24 17:00 10/24/24 16:46 2 UNITS Dextrose 50 ml UD PRN IV 10/21/24 14:45 Aspirin 81 mg DAILY PO 10/22/24 10:00 Hold 10/25/24 10:53 81 MG Norepinephrine Bitartrate 32 mg/ Sodium Chloride 250 ml @ 0.938 mls/ hr Q24H IV 10/21/24 17:00 10/26/24 10:56 0.938 MLS/HR Vasopressin 20 units/Sodium Chloride 100 ml @ 9 mls/hr Q11H7M IV 10/21/24 17:00 Vancomycin HCl 0 ml @ 0 mls/hr UD IV 10/22/24 11:15 Piperacillin Sod/ Tazobactam Sod 100 ml @ 25 mls/hr Q6HR IV 10/22/24 12:00 10/28/24 12:09 25 MLS/HR Enteral Nutritional Formula 1,000 ml 30ML/HR GT 10/22/24 11:15 10/23/24 13:38 1,000 ML Docusate Sodium 100 mg BID GT 10/22/24 22:00 10/27/24 22:12 100 MG Atorvastatin Calcium 40 mg HS PO 10/22/24 22:00 10/27/24 22:13 40 MG Pantoprazole Sodium 40 mg BID IV 10/22/24 22:00 10/28/24 11:07 40 MG Sodium Chloride 10 ml QSHIFT@10,22 IV 10/24/24 10:00 10/28/24 11:07 10 ML Amiodarone HCl 200 mg Q12HR PO 10/24/24 22:00 10/27/24 22:13 200 MG Vancomycin HCl 250 ml @ 250 mls/hr Q8H IV 10/26/24 01:00 10/28/24 09:05 250 MLS/HR Clopidogrel Bisulfate 75 mg DAILY PO 10/27/24 10:00 10/28/24 11:06 75 MG Acetaminophen 650 mg Q6HP PRN GT 10/27/24 11:15 10/28/24 11:06 650 MG Levetiracetam 100 ml @ 400 mls/hr BID IV 10/28/24 22:00 Purified Water 200 ml Q6HR GT 10/28/24 18:00 Examination General Appearance: Intubated, mechanically ventilated. Sedated. Head Exam: Normal inspection Neck Exam: Normal inspection. Non-tender. Normal alignment Pulmonary/Respiratory: Chest non-tender. Clear bilateral breath sounds Cardiovascular/Chest: Regular rate and rhythm. No murmurs. No JVD. Peripheral Pulses: 2+ Radial (R). 2+ Radial (L). 2+ Pedal (R). 2+ Pedal (L) Abdominal Exam: Normal bowel sounds. Soft. Nontender. No hepatospenomegaly. No masses Ankle Exam: Negative ankle edema Lower extremities: Negative lower extremity edema Neuro/Mental Status: Sedated laboratory and microbiology Laboratory Tests 10/28/24 03:25 Test 10/28/24 03:25 Range/Units Serum Glucose 96 74-106 mg/dL Microbiology Date/Time Source Procedure Growth Status 10/22/24 18:25 Nose MRSA Screen - Final Complete 10/21/24 14:56 Blood Blood Culture - Final NO GROWTH AFTER 5 DAYS OF INCUBATION. Complete 10/21/24 10:25 Voided Urine Urine Culture - Final Complete 10/21/24 10:24 Sputum Gram Stain - Final Complete 10/21/24 10:24 Respiratory Culture - Final Escherichia coli Complete Problem List/Assessment/Plan Problem List/Assessment/Plan Cardiac arrest Upper GI bleed: Stopped Polycythemia vera Thrombocytopenia Transaminitis Transaminitis due to ischemic liver NSTEMI Anoxic brain injury Plan/ recommendation Dr Coto -recent brain MRI showed diffuse anoxic brain injury. Stopped Brilinta and blood thinners given suspected small subarachnoid hemorrhage. -continue supportive care -no active GI bleeding at this point, continue Protonix 40 mg p.o. b.i.d. -nutrition via G-tube, currently receiving Jevity. Goal at least 30 mL/hour. -patient's prognosis remained poor, follow with neurology for neurological status. -GI team will be standing by in case if there is any active GI bleed. -conservative management. -family opted for DNI DNR, possible comfort measures. Plan discussed with: Other BULL VELASCO RESIDENT Oct 28, 2024 16:14
[2024-10-28] MEDS: POTASSIUM EFFERVESENT TAB 25 MEQ PO ONE (16:43)
[2024-10-28] MEDS: FREE WATER GT SCH (18:28)
[2024-10-28] MEDS: levETIRAcetam 1000 mg/100ml 100 ML IV SCH (20:54)
[2024-10-29] VITALS (92 sets, daily range): BP systolic 88–132; BP diastolic 45–69; PULSE 30–81; RESP 0–28; TEMP 98.2–100.8; O2SAT 21–100
[2024-10-29] MEDS: VANCOMYCIN 1GM/250ML KIT 250 ML IV SCH (03:08)
[2024-10-29 04:34] LABS: Basophils # (auto) 0.2 10 ^3/uL (0-0.2); Basophils % (auto) 1.8 % (0.0-2.0); Eosinophils # (auto) 0.3 10 ^3/uL (0-0.8); Eosinophils % (auto) 2.7 % (0.0-7.0); Hematocrit 50.5 % (41.0-53.0); Hemoglobin 16.7 g/dL (13.5-17.5); Lymphocytes # (auto) 0.9 10 ^3/uL (0.4-5.4); Lymphocytes % (auto) 6.7 % (10.0-50.0); Mean Corpuscular Hemoglobin 31.3 pg (28.0-32.0); Mean Corpuscular Hgb Conc. 33.1 g/dL (32.0-36.0); Mean Corpuscular Volume 94.4 fL (80.0-100.0); Monocytes % (auto) 7.8 % (0.0-12.0); Neutrophils # (auto) 10.4 10 ^3/uL (1.6-8.6); Nucleated Red Blood Cells % 0.2 %; Platelet Count (auto) 180 10^3/uL (140-450); Red Blood Cells 5.35 10^6/uL (4.5-5.90); Red Cell Distribution Width 15.2 % (11.8-14.3); White Blood Cell 12.9 10^3/uL (4.4-10.8)
[2024-10-29 04:55] LABS: Alanine Aminotransferase 37 U/L (7-40); Albumin 3.5 g/dL (3.2-4.8); Alkaline Phosphatase 66 U/L (46-116); Anion Gap 10 (5-15); Aspartate Aminotransferase 77 U/L (13-40); Blood Urea Nitrogen 10 mg/dL (9-23); Calcium 9.7 mg/dL (8.7-10.4); Carbon Dioxide 24 mmol/L (20-31); Chloride 120 mmol/L (98-107); Glucose 102 mg/dL (74-106); Potassium 3.3 mmol/L (3.5-5.1); Sodium 154 mmol/L (136-145)
[2024-10-29 04:56] LABS: Bilirubin, Total 0.7 mg/dL (0.2-1.0); Total Protein 6.5 g/dL (5.7-8.2)
[2024-10-29] MEDS: POTASSIUM CHL 20MEQ/100ML 100 ML IV ONE (06:23)
[2024-10-29 07:21] LABS: Base Excess -0.7 mmol/L (-2.0-3.0)
--- NOTE | 2024-10-29 10:35 | DVHPN2 ---
Progress Note - Dictate Date Seen: Oct 29, 2024 Medical Necessity Reason Pt with a Central, PICC or Fol: Yes The following are medically ne: Central Line, Cheema Catheter Reason for cheema catheter: Strict I&O Subjective Mr. Lewis is a 54 years old right-handed gentleman with a history of hypertension, COPD, coronary artery disease, heart attack, chronic back pain, he was brought to the hospital on 10/21/2024 with a chief company of cardiopulmonary arrest. I have seen and examined the patient, I have discussed with his nurse. Nurse reported earlier today, the left, not right, pupil was bigger, but on physical examination, the people are equally round, and slightly reactive to light He is intubated, sedated, nonresponsive to strong painful stimuli, pupils are three mm and fixed He has infrequent the stomach myoclonic jerking Fentanyl 125 mcg/hour, Versed 8 mg/hour CBC, 10/21/2024: Respiratory acidosis WBC/HB/PLT/MCV, 10/25/2024, 12.3/617/95/94.1 /05/11: Unremarkable TBI/AST/ALT/AP, 10/25/2024: 0.6/100 06/08/2049 Troponin one high sensitivity, 10/21/2024: 16, 291, 462, 151 TG/HDL/LDL/HDL, 10/21/2024: 163/II/41/36 EE,10/26/2024: Remarkably abnormal EEG CT head, 10/21/2024: No acute intracranial process CT head, 10/25/2024: 1. Air-fluid levels and opacification of all paranasal sinuses. Findings consistent with pansinusitis. 2. No acute intracranial hemorrhage. 3. No CT findings of territorial ischemia. 4. Sulci and gyri are not well seen this may represent diffuse cerebral edema. 5. Subarachnoid hemorrhage versus previous administration of intravenous contrast MRI head, 10/26/2024 comparison, CT head dated 10/25/2024: 1. Findings are compatible with diffuse anoxic injury. 2. Mild diffuse effacement of the CSF spaces. The cerebellar tonsils are minimally low-lying although there is no significant crowding at the foramen magnum at this time.No acute intracranial hemorrhage. The questioned subarachnoid hemorrhage on CT is consistent with pseudo-subarachnoid hemorrhage in the setting of diffuse anoxic injury. vital signs Vital Sign Date Time Temp Pulse Resp B/P (MAP) Pulse Ox O2 Delivery O2 Flow Rate FiO2 10/29/24 10:00 79 10/29/24 09:43 28 105/53 (70) 95 30 10/29/24 09:40 100.8 10/29/24 08:00 Mechanical Ventilator+ Total Intake and Output 10/28/24 10/28/24 10/29/24 15:00 23:00 07:00 Intake Total 770 ml 929.5 ml 828.0 ml Output Total 1450 ml 2700 ml Balance 770 ml -520.5 ml -1872.0 ml medications Current Medications Medications Dose Ordered Sig/Abundio Route Start Time Stop Time Status Last Admin Dose Admin Midazolam HCl 50 ml @ 1 mls/hr Q24H IV 10/21/24 11:00 10/29/24 06:23 6 MLS/HR Fentanyl Citrate 250 ml @ 2.5 mls/hr Q24H IV 10/21/24 11:00 10/28/24 19:21 12.5 MLS/HR Diagnostic Test (Pha) 1 strip ACHS 10/21/24 17:00 10/29/24 06:22 1 STRIP Insulin Human Regular ACHS SC 10/21/24 17:00 10/24/24 16:46 2 UNITS Dextrose 50 ml UD PRN IV 10/21/24 14:45 Aspirin 81 mg DAILY PO 10/22/24 10:00 Hold 10/25/24 10:53 81 MG Norepinephrine Bitartrate 32 mg/ Sodium Chloride 250 ml @ 0.938 mls/ hr Q24H IV 10/21/24 17:00 10/26/24 10:56 0.938 MLS/HR Vasopressin 20 units/Sodium Chloride 100 ml @ 9 mls/hr Q11H7M IV 10/21/24 17:00 Vancomycin HCl 0 ml @ 0 mls/hr UD IV 10/22/24 11:15 Piperacillin Sod/ Tazobactam Sod 100 ml @ 25 mls/hr Q6HR IV 10/22/24 12:00 10/29/24 06:22 25 MLS/HR Enteral Nutritional Formula 1,000 ml 30ML/HR GT 10/22/24 11:15 10/28/24 20:54 1,000 ML Docusate Sodium 100 mg BID GT 10/22/24 22:00 10/28/24 20:54 100 MG Atorvastatin Calcium 40 mg HS PO 10/22/24 22:00 10/28/24 21:23 40 MG Pantoprazole Sodium 40 mg BID IV 10/22/24 22:00 10/29/24 09:06 40 MG Sodium Chloride 10 ml QSHIFT@10,22 IV 10/24/24 10:00 10/29/24 09:07 10 ML Amiodarone HCl 200 mg Q12HR PO 10/24/24 22:00 10/29/24 09:06 200 MG Clopidogrel Bisulfate 75 mg DAILY PO 10/27/24 10:00 10/29/24 09:07 75 MG Acetaminophen 650 mg Q6HP PRN GT 10/27/24 11:15 10/29/24 09:40 650 MG Levetiracetam 100 ml @ 400 mls/hr BID IV 10/28/24 22:00 10/29/24 09:07 400 MLS/HR Purified Water 200 ml Q6HR GT 10/28/24 18:00 10/29/24 06:23 200 ML Vancomycin HCl 250 ml @ 250 mls/hr Q10H IV 10/29/24 03:00 10/29/24 03:08 250 MLS/HR objective The patient is well-nourished and well-developed with no distress. The patient is intubated MENTAL STATUS: Subjective CRANIAL NERVES: Pupils are round and nonreactive.There are no corneal reflexes and weak doll's eyes phenomenon. No signs of facial weakness. There are no gagging or coughing reflexes SENSATION: Subjective MOTOR: Normal tone in the upper and lower extremity. Normal muscle bulk. No fasciculations. No spontaneous movement. REFLEXES: Deep tendon reflexes are symmetrical. No pathological reflexes. CEREBELLAR/COORDINATION: Deferred GAIT/STATION: deferred laboratory and microbiology Laboratory Tests 10/29/24 03:10 Test 10/29/24 03:10 Range/Units Serum Glucose 102 74-106 mg/dL Problem List Coma Metabolic encephalopathy Hypoxic encephalopathy Cardiopulmonary arrest Acute respiratory failure Diffuse brain edema Abdominal muscle twitching Segmental myoclonus versus seizure Abnormal CT/MRI head Diffuse hypoxic brain injury Assessment/Plan Monitoring Supportive treatment ICU care Stabilize vitals/pressor drip Respiratory support/vent management Oxygen Aspirin 81 mg daily Clopidogrel 75 mg daily Lipitor 40 mg daily Keppra 1000 mg IV b.i.d. Antibiotics More recommendation per clinical course This medical document was created using an electronic medical record system with [employer] dictation system. Although this document has been carefully reviewed, there may still be some phonetic and typographical errors. These areas are purely typographical due to imperfections of the software programs, and do not reflect any compromise in the patient's medical care Prognosis guarded Plan discussed with: Other AYANA AVALOS MD Oct 29, 2024 10:35
--- NOTE | 2024-10-29 10:53 | DVHPNRES ---
Progress Note Date Seen: Oct 29, 2024 Resident Creating Document: BULL VELASCO RESIDENT Medical Necessity Reason Pt with a Central, PICC or Fol: Yes The following are medically ne: Central Line, Cheema Catheter Reason for cheema catheter: Strict I&O Subjective Review of Systems No new complaints. Objective vital signs Vital Sign Date Time Temp Pulse Resp B/P (MAP) Pulse Ox O2 Delivery O2 Flow Rate FiO2 10/29/24 10:30 100.4 76 11 95/48 (64) 94 212.7 10/29/24 10:00 Mechanical Ventilator 10/29/24 10:00 30 Total Intake and Output 10/28/24 10/28/24 10/29/24 15:00 23:00 07:00 Intake Total 770 ml 929.5 ml 828.0 ml Output Total 1450 ml 2700 ml Balance 770 ml -520.5 ml -1872.0 ml medications Current Medications Medications Dose Ordered Sig/Abundio Route Start Time Stop Time Status Last Admin Dose Admin Midazolam HCl 50 ml @ 1 mls/hr Q24H IV 10/21/24 11:00 10/29/24 06:23 6 MLS/HR Fentanyl Citrate 250 ml @ 2.5 mls/hr Q24H IV 10/21/24 11:00 10/28/24 19:21 12.5 MLS/HR Diagnostic Test (Pha) 1 strip ACHS 10/21/24 17:00 10/29/24 06:22 1 STRIP Insulin Human Regular ACHS SC 10/21/24 17:00 10/24/24 16:46 2 UNITS Dextrose 50 ml UD PRN IV 10/21/24 14:45 Aspirin 81 mg DAILY PO 10/22/24 10:00 Hold 10/25/24 10:53 81 MG Norepinephrine Bitartrate 32 mg/ Sodium Chloride 250 ml @ 0.938 mls/ hr Q24H IV 10/21/24 17:00 10/26/24 10:56 0.938 MLS/HR Vasopressin 20 units/Sodium Chloride 100 ml @ 9 mls/hr Q11H7M IV 10/21/24 17:00 Vancomycin HCl 0 ml @ 0 mls/hr UD IV 10/22/24 11:15 Piperacillin Sod/ Tazobactam Sod 100 ml @ 25 mls/hr Q6HR IV 10/22/24 12:00 10/29/24 06:22 25 MLS/HR Enteral Nutritional Formula 1,000 ml 30ML/HR GT 10/22/24 11:15 10/28/24 20:54 1,000 ML Docusate Sodium 100 mg BID GT 10/22/24 22:00 10/28/24 20:54 100 MG Atorvastatin Calcium 40 mg HS PO 10/22/24 22:00 10/28/24 21:23 40 MG Pantoprazole Sodium 40 mg BID IV 10/22/24 22:00 10/29/24 09:06 40 MG Sodium Chloride 10 ml QSHIFT@10,22 IV 10/24/24 10:00 10/29/24 09:07 10 ML Amiodarone HCl 200 mg Q12HR PO 10/24/24 22:00 10/29/24 09:06 200 MG Clopidogrel Bisulfate 75 mg DAILY PO 10/27/24 10:00 10/29/24 09:07 75 MG Acetaminophen 650 mg Q6HP PRN GT 10/27/24 11:15 10/29/24 09:40 650 MG Levetiracetam 100 ml @ 400 mls/hr BID IV 10/28/24 22:00 10/29/24 09:07 400 MLS/HR Purified Water 200 ml Q6HR GT 10/28/24 18:00 10/29/24 06:23 200 ML Vancomycin HCl 250 ml @ 250 mls/hr Q10H IV 10/29/24 03:00 10/29/24 03:08 250 MLS/HR Examination General Appearance: Intubated, mechanically ventilated. Sedated. Head Exam: Normal inspection Neck Exam: Normal inspection. Non-tender. Normal alignment Pulmonary/Respiratory: Chest non-tender. Clear bilateral breath sounds Cardiovascular/Chest: Regular rate and rhythm. No murmurs. No JVD. Peripheral Pulses: 2+ Radial (R). 2+ Radial (L). 2+ Pedal (R). 2+ Pedal (L) Abdominal Exam: Normal bowel sounds. Soft. Nontender. No hepatospenomegaly. No masses Ankle Exam: Negative ankle edema Lower extremities: Negative lower extremity edema Neuro/Mental Status: Sedated laboratory and microbiology Laboratory Tests 10/29/24 03:10 Test 10/29/24 03:10 Range/Units Serum Glucose 102 74-106 mg/dL Microbiology Date/Time Source Procedure Growth Status 10/22/24 18:25 Nose MRSA Screen - Final Complete 10/21/24 14:56 Blood Blood Culture - Final NO GROWTH AFTER 5 DAYS OF INCUBATION. Complete 10/21/24 10:25 Voided Urine Urine Culture - Final Complete 10/21/24 10:24 Sputum Gram Stain - Final Complete 10/21/24 10:24 Respiratory Culture - Final Escherichia coli Complete Problem List/Assessment/Plan Problem List/Assessment/Plan Cardiac arrest Upper GI bleed: Stopped Polycythemia vera Thrombocytopenia Transaminitis Transaminitis due to ischemic liver NSTEMI Anoxic brain injury Plan/ recommendation Dr Coto -recent brain MRI showed diffuse anoxic brain injury. Stopped Brilinta and blood thinners given suspected small subarachnoid hemorrhage. -continue supportive care -no active GI bleeding at this point, continue Protonix 40 mg p.o. b.i.d. -nutrition via G-tube, currently receiving Jevity. Goal at least 30 mL/hour. -patient's prognosis remained poor, follow with neurology for neurological status. -GI team will be standing by in case if there is any active GI bleed. -conservative management. -family opted for DNI DNR, possible comfort measures. Plan discussed with: Other (RN) BULL VELASCO RESIDENT Oct 29, 2024 10:53
[2024-10-29] MEDS: FREE WATER GT SCH (17:54)
[2024-10-29] MEDS ORDERED: LORazepam 0.5 MG TAB PO PRN (18:00)
[2024-10-29] MEDS ORDERED: MORPHINE SULFATE 4 MG/ML SYR/VIAL IV PRN ×2 (18:00→19:45)
[2024-10-29] MEDS ORDERED: LORazepam 2MG/ML-1ML VIAL IV PRN (18:15)
[2024-10-29] MEDS ORDERED: ONDANSETRON HCL 4 MG/2 ML VIAL IV PRN (20:00)
[2024-10-29] MEDS ORDERED: GLYCOPYRROLATE 0.2 MG/ML 1ML VIAL IV SCH (20:00)
[2024-10-29] MEDS: LORazepam 2MG/ML-1ML VIAL IV PRN (20:46)
[2024-10-29] MEDS: MORPHINE SULFATE 4 MG/ML SYR/VIAL IV PRN (20:46)
--- NOTE | 2024-10-29 21:19 | PRN ---
Misceleneous Note Note Note Declaration Summary: ICU Course: A 54-year-old man with a significant medical history, including PTCA with two CATALINO (2017, 2020), hernia repair, vertebral fusion, and other cond itions, presented to the ER via EMS after a cardiopulmonary arrest. He was found unresponsive at an imaging center, received CPR and AED shocks, and was intubated upon arrival. He experienced pulseless ventricular tachycardia, was defibrillated, and achieved ROSC. Initial EKG showed sinus tachycardia with ischemia, and a second EKG revealed global ischemia. Troponin levels were ris ing. His reported symptoms of SOB, chest discomfort, and poor appetite the previous day. His medical history includes coronary artery disease, hypertension, dyslipidemia, chronic thrombocytopenia, prediabetes, peripheral neuropathy, chronic back pain, anxiety, depression, history of GI bleed, PUD, and a smoking history of 30 pack-years. patient was sedated vented but lisauna slim was found to have anoxic brain injury with poor prognosis unlikely to recover from vegetative state. The patient's remains in the DNR DNI state family decided for terminal extubation. Notified by the nurse that the patient was in asystole and unresponsive Detailed bedside examination revealed: -The patient was unresponsive to verbal or painful stimuli. -Spontaneous Heart and lung sounds are absent. -No spontaneous cardiac or respiratory activity noted over 5 minutes. -No corneal pupillary reflex present while checked twice. -Pupils are fixed and dilated over the examination period. The patient was pronounced clinically at 9:10 PM of date 10/29/2024 by Nelson Hansen MD, resident. Patient's family and patient's nurse were updated by the healthcare team. Appropriate and empathic condolences were provided to the patient's dear ones. NELSON HANSEN RESIDENT Oct 29, 2024 21:19
[2024-10-29] MEDS ORDERED: DESMOPRESSIN ACET 4 MCG/1 ML AMPULE SUBCUT SCH (22:00)
[2024-10-29] MEDS ORDERED: DOCUSATE SOD 100 MG CAP PO SCH (22:00)
--- NOTE | 2024-10-29 22:38 | DVHPNRES ---
Progress Note Date Seen: Oct 29, 2024 Resident Creating Document: JASON HANSEN RESIDENT Medical Necessity Reason Pt with a Central, PICC or Fol: Yes The following are medically ne: Central Line, Cheema Catheter Reason for cheema catheter: Strict I&O Subjective Review of Systems Patient has still remained sedated and vented, continues to have abdominal contraction, no major changes on vent settings. Map overnight decreased, but still maintaining over 65. Family continues to visit Objective vital signs Vital Sign Date Time Temp Pulse Resp B/P (MAP) Pulse Ox O2 Delivery O2 Flow Rate FiO2 10/29/24 20:46 62 15 132/62 10/29/24 20:15 93 30 10/29/24 20:00 Mechanical Ventilator+ 10/29/24 18:30 99.1 210.4 Total Intake and Output 10/28/24 10/28/24 10/29/24 15:00 23:00 07:00 Intake Total 770 ml 929.5 ml 828.0 ml Output Total 1450 ml 2700 ml Balance 770 ml -520.5 ml -1872.0 ml medications Current Medications Medications Dose Ordered Sig/Abundio Route Start Time Stop Time Status Last Admin Dose Admin Docusate Sodium 100 mg BID GT 10/22/24 22:00 10/28/24 20:54 100 MG Morphine Sulfate 1 mg Q1HP PRN IV 10/29/24 20:00 10/29/24 20:46 1 MG Lorazepam 1 mg Q1HP PRN IV 10/29/24 20:00 10/29/24 20:46 1 MG Ondansetron HCl 4 mg Q4HP PRN IV 10/29/24 20:00 Glycopyrrolate Q2HPRN IV 10/29/24 20:00 Examination GENERAL:Normal (Sedated vented), HEENT:Normal, NECK:Normal, LUNGS:Normal (Basal rales), CVS:Normal (Maintaining map over 65 without any med vasopressor support), ABDOMEN:Normal (Abdomen, clonus noted.), MSK:Normal, SKIN:Normal, NEURO:Normal, :Normal, skin mottling noted, abdominal myoclonus continues, fixed dilated pupil laboratory and microbiology Laboratory Tests 10/29/24 12:00 10/29/24 03:10 Test 10/29/24 03:10 Range/Units Serum Glucose 102 74-106 mg/dL Microbiology Date/Time Source Procedure Growth Status 10/22/24 18:25 Nose MRSA Screen - Final Complete 10/21/24 14:56 Blood Blood Culture - Final NO GROWTH AFTER 5 DAYS OF INCUBATION. Complete 10/21/24 10:25 Voided Urine Urine Culture - Final Complete 10/21/24 10:24 Sputum Gram Stain - Final Complete 10/21/24 10:24 Respiratory Culture - Final Escherichia coli Complete Labs and/or images reviewed: Labs reviewed by me, Image(s) reviewed by me Problem List/Assessment/Plan Problem List/Assessment/Plan ICU Course: A 54-year-old man with a significant medical history, including PTCA with two CATALINO (2017, 2020), hernia repair, vertebral fusion, and other conditions, presented to the ER via EMS after a cardiopulmonary arrest. He was found unresponsive at an imaging center, received CPR and AED shocks, and was intubated upon arrival. He experienced pulseless ventricular tachycardia, was defibrillated, and achieved ROSC. Initial EKG showed sinus tachycardia with ischemia, and a second EKG revealed global ischemia. Troponin levels were rising. His reported symptoms of SOB, chest discomfort, and poor appetite the previous day. His medical history includes coronary artery disease, hypertension, dyslipidemia, chronic thrombocytopenia, prediabetes, peripheral neuropathy, chronic back pain, anxiety, depression, history of GI bleed, PUD, and a smoking history of 30 pack-years. patient was sedated vented but unfortunately was found to have anoxic brain injury with poor prognosis unlikely to recover from vegetative state. The patient's remains in the DNR DNI state family is visiting. Hospitalization day: 9 A. Neurology: # anoxic brain injury: Unfortunately patient sustained anoxic brain injury, CT unremarkable, MRI shows effacement and anoxic brain injury, EEG supportive. Appreciate input of Neurology. # abdominal myoclonus: anoxic brain injury related likely, patient is started on Keppra 500 b.i.d. appreciate neurology input>>> changed to 1000 mg b.i.d although no improvement # sedation : Versed, propofol, fentanyl , with lower sedation patient is having Cristobal-Nelson breathing # tobacco use disorder # alcohol use disorder # cannabis use disorder B. Cardiology: # shock likely cardiogenic, recovered: Off of norepinephrine , maintaining map over 65 # cardiac arrest 2 times: status post ROSC due to ? Arrhythmia ? ACS, unknown down time # acute on chronic heart failure with reduced ejection fraction likely ischemic cardiopathy # coronary artery disease, history of [place] status post PCI 2 times status post resenting # NSTEMI status post cardiac catheterization and PCI PTCA and stenting of the circumflex coronary artery.: Continue statin aspirin and Brilinta SP ruled out intracranial bleeding. #V-tach, sustained, currently sinus rhythm : Status post cardioversion amiodarone drip, keep potassium over 4 and magnesium over 2. C. Respiratory: # acute hypoxic respiratory failure due to cardiac arrest On mechanical ventilator, #? acute exacerbation of COPD #Vent Settings: AC/VC tidal volume 500, RR 26, peep of 5. D. Gastrointenstinal: # GI bleed, upper GI/lower GI bleed, history of upper GI ulcers as per family, history of hemorrhoids: On IV Protonix # history of gastric/duodenal ulcers # transaminitis likely due to alcohol use disorder: Monitor CAP daily E. Geniotourinary: # on Cheema's catheter: Close input output satisfactory. F. Infectious Disease: # sepsis with septic shock likely due to? Aspiration pneumonia, the source of infection not ruled out yet : Continue vancomycin and Zosyn extended keep a close eye on renal functions. Resolved. Trend CBC daily, WBC is improving # Fever G. Hematology & Oncology: # polycythemia likely secondary to excessive smoking, improved # coagulopathy, improved # thrombocytopenia, recovered, monitor CBC daily, maintaining more than 150 H. 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 subcutaneous desmopressin given I. Endocrine: unremarkable J. MSK: Remarkable mottling K. Prophylaxis: PPI: IV Protonix 40 mg b.i.d. DVT: Lovenox Currently on hold because of GI bleed SCDs L. Lines & Drains (with insertion date): Right femoral triple-lumen catheter 2/4 Right femoral A-line 2/4 Cheema's catheter 2/4 M. Drips: Norepinephrine OFF Fentanyl Propofol Versed N. Disposition: Remains in ICU. Updated family members, family decided for terminal extubation. Emotional support given. Code status will be changed from DNR DNI to comfort measures. Collective decision of the family was against organ donation. The plan was discussed with the ICU attending Dr. Hanks. The patient care consists of total 87 minutes of critical care time excluding the procedures. Plan discussed with: Patient, Spouse, Son, Other (primary team. ) My Orders My Orders Orders - JASON HANSEN Procedure Category Date Status Time Abg W/ Co-Ox RT 10/29/24 Logged 05:47 Morphine Sulfate PHA 10/29/24 In Process Injection 20:00 Lorazepam 2mg/Ml Inj PHA 10/29/24 In Process (Ativan Inj) 20:00 Ondansetron Hcl PHA 10/29/24 In Process (Zofran) 20:00 DNR ANGEL 10/29/24 In Process 20:00 Continue Dnr ANGEL 10/29/24 In Process 20:00 Glycopyrrolate PHA 10/29/24 In Process Injection (Robinul 20:00 Rt To Terminal Wean Pt ORDERS 10/29/24 Transmitted 20:32 Code Status CODE 10/29/24 Transmitted 21:03 JASON HANSEN RESIDENT Oct 29, 2024 22:38
--- NOTE | 2024-10-29 22:53 | DVHDSRES ---
Discharge Summary Date of Admission Resident Creating Document: JASON HANSEN RESIDENT Oct 21, 2024 at 15:41 Date of Discharge: Oct 29, 2024 Admitting Diagnosis Cardiac arrest Labs/Diagnostic Data: Laboratory Results Test 10/29/24 12:00 10/29/24 07:01 10/29/24 03:10 10/28/24 16:04 Potassium Level 3.7 mmol/L (3.5-5.1) Blood Gas Specimen Type Arterial Blood Gas Sample Site Arterial line Blood Gas Patient Temperature 37.0 Arterial Blood Date Drawn [id number] Arterial Blood pH 7.459 (7.350-7.450) Arterial Blood Partial Pressure CO2 31.8 mmHg (35.0-48.0) Arterial Blood Partial Pressure O2 75.5 mmHg (83.0-108.0) Arterial Blood HCO3 22.1 mmol/L (21.0-28.0) Arterial Blood Oxygen Saturation 94.9 % (94.0-98.0) Arterial Blood Base Excess -0.7 mmol/L (-2.0-3.0) Arterial Blood Oxyhemoglobin 93.8 % (94.0-98.0) Arterial Blood Carboxyhemoglobin 0.9 % (0.5-1.5) Arterial Blood Methemoglobin 0.3 % (0.0-1.5) Elvin Test N/a Blood Gas Total Hemoglobin 16.70 g/dL (13.5-17.5) Blood Gas Set Respiration Rate 24.0 Blood Gas Modality Vent - ac Blood Gas Spontaneous Rate 30 FiO2 % 30.0 Blood Gas Tidal Volume 500.0 Blood Gas PEEP or CPAP 5.0 Specimen Drawn By Marcos chief diversity officer White Blood Count 12.9 10^3/uL (4.4-10.8) Red Blood Count 5.35 10^6/uL (4.5-5.90) Hemoglobin 16.7 g/dL (13.5-17.5) Hematocrit 50.5 % (41.0-53.0) Mean Corpuscular Volume 94.4 fL (80.0-100.0) Mean Corpuscular Hemoglobin 31.3 pg (28.0-32.0) Mean Corpuscular Hemoglobin Concent 33.1 g/dL (32.0-36.0) Red Cell Distribution Width 15.2 % (11.8-14.3) Platelet Count 180 10^3/uL (140-450) Mean Platelet Volume 9.1 fL (6.9-10.8) Neutrophils (%) (Auto) 81.0 % (37.0-80.0) Lymphocytes (%) (Auto) 6.7 % (10.0-50.0) Monocytes (%) (Auto) 7.8 % (0.0-12.0) Eosinophils (%) (Auto) 2.7 % (0.0-7.0) Basophils (%) (Auto) 1.8 % (0.0-2.0) Neutrophils # (Auto) 10.4 10 ^3/uL (1.6-8.6) Lymphocytes # (Auto) 0.9 10 ^3/uL (0.4-5.4) Monocytes # (Auto) 1.0 10 ^3/uL (0-1.3) Eosinophils # (Auto) 0.3 10 ^3/uL (0-0.8) Basophils # (Auto) 0.2 10 ^3/uL (0-0.2) Nucleated Red Blood Cells 0.2 % Sodium Level 154 mmol/L (136-145) Chloride Level 120 mmol/L (98-107) Carbon Dioxide Level 24 mmol/L (20-31) Anion Gap 10 (5-15) Blood Urea Nitrogen 10 mg/dL (9-23) Creatinine 0.83 mg/dL (0.700-1.30) Glomerular Filtration Rate Calc 103 mL/min (>90) BUN/Creatinine Ratio 12.0 (10.0-20.0) Serum Glucose 102 mg/dL (74-106) Calcium Level 9.7 mg/dL (8.7-10.4) Total Bilirubin 0.7 mg/dL (0.2-1.0) Aspartate Amino Transferase (AST) 77 U/L (13-40) Alanine Aminotransferase (ALT) 37 U/L (7-40) Alkaline Phosphatase 66 U/L (46-116) Total Protein 6.5 g/dL (5.7-8.2) Albumin 3.5 g/dL (3.2-4.8) Vancomycin Level Trough 19.2 ug/mL (5-10) Test 10/27/24 04:20 10/26/24 20:13 10/25/24 18:53 10/25/24 16:00 Creatine Kinase 136 U/L (46-171) Magnesium Level 2.2 mg/dL (1.6-2.6) Testosterone Level 1269 ng/dL (264-916) Sex Hormone Binding Globulin 25.4 nmol/L (19.3-76.4) Thyroid Stimulating Hormone (TSH) 0.46 uIU/mL (0.55-4.78) Test 10/24/24 03:44 10/23/24 12:00 10/23/24 08:44 10/23/24 07:07 Direct Bilirubin 0.2 mg/dL (<0.3) POC Glucose 101 mg/dl (70-106) Prothrombin Time 12.3 sec (9.3-11.8) Prothrombin Time INR 1.18 (0.9-1.15) Activated Partial Thromboplast Time 29.4 SEC (24.5-34.5) Blood Gas Inspiratory Pressure 18.0 Bl Gas Inspiratory/Expiratory Ratio 1:1.8 Blood Gas Critical Value Read Back yes Blood Gas Notified Whom sulma holder Blood Gas Notified Time [id number] Blood Gas Notified By all cavazos Test 10/23/24 02:46 10/22/24 23:30 10/22/24 16:00 10/22/24 14:57 Influenza Type A Antigen Negative (Negative) Influenza Type B Antigen Negative (Negative) SARS-CoV-2 Antigen (Rapid) Negative (NEGATIVE) Stool Occult Blood Positive (Negative) Stool Occult Blood Sample #3 (Negative) Hepatitis B Surface Antigen Negative (Negative) Hepatitis B Surface Antibody Positive (Negative) Hepatitis C Antibody Negative (Negative) Test 10/21/24 17:54 10/21/24 14:38 10/21/24 12:53 10/21/24 10:25 Fibrinogen 357 mg/dL (177-375) Troponin I High Sensitivity 951 ng/L (</=54) Iron Level 151 ug/dL (65-175) Total Iron Binding Capacity 296 ug/dL (250-425) Percent Iron Saturation 51.0 % (20-55) Triglycerides Level 163 mg/dL (< 150) Cholesterol Level 102 mg/dL (< 200) LDL Cholesterol 41 mg/dL (< 100) HDL Cholesterol 36 mg/dL (40-59) Folic Acid 18.22 ng/mL (>5.38) Lactic Acid Level 2.2 mmol/L (0.4-2.0) Urine Color Yellow (Yellow) Urine Clarity Turbid (Clear) Urine pH 6.5 (5.0-9.0) Urine Specific [place] 1.016 (1.001-1.035) Urine Protein 1+ (Negative) Urine Ketones Trace (Negative) Urine Blood Trace /uL (Negative) Urine Nitrite Negative (Negative) Urine Bilirubin Negative (Negative) Urine Urobilinogen 2 mg/dL (Negative) Urine Leukocyte Esterase 1+ /uL (Negative) Urine RBC 15 /hpf (0 - 3) Urine Microscopic WBC 7 /HPF (0-3) Urine Squamous Epithelial Cells None seen /hpf (<5) Urine Bacteria None seen /hpf (None Seen) Urine Mucus Few (None Seen) Urine Glucose Normal mg/dL (Normal) Urine Opiates Screen Neg (NEGATIVE) Urine Fentanyl Screen Neg (NEGATIVE) Urine Barbiturates Screen Neg (NEGATIVE) Urine Phencyclidine Screen Neg (NEGATIVE) Urine Amphetamines Screen Neg (NEGATIVE) Urine Benzodiazepines Screen Neg (NEGATIVE) Urine Cocaine Screen Neg (NEGATIVE) Urine Cannabinoids Screen Pos (NEGATIVE) Test 10/21/24 10:23 B-Type Natriuretic Peptide 93.92 pg/mL (0-100) Lipase 52 U/L (12-53) Other Laboratory Tests 10/29/24 12:00 10/29/24 03:10 Brief Hx & Hospital Course: summary: Mr. Lewis a 54-year-old azotemia man with a significant medical history, including PTCA with two CATALINO (2017, 2020), hernia repair, vertebral fusion, and other conditions, presented to the ER via EMS after a cardiopulmonary arrest. He was found unresponsive at an imaging center, received CPR and AED shocks, and was intubated upon arrival. He experienced pulseless ventricular tachycardia, was defibrillated, and achieved ROSC. Initial EKG showed sinus tachycardia with ischemia, and a second EKG revealed global ischemia. Troponin levels were rising. His reported symptoms of SOB, chest discomfort, and poor appetite the previous day. His medical history includes coronary artery disease, hypertension, dyslipidemia, chronic thrombocytopenia, prediabetes, peripheral neuropathy, chronic back pain, anxiety, depression, history of GI bleed, PUD, and a smoking history of 30 pack-years. patient was sedated vented but unfortunately was found to have anoxic brain injury with poor prognosis unlikely to recover from vegetative state. The patient's remains in the DNR DNI state, family decided for terminal extubation, witnessed signature collected for comfort level of care on hospitalization day 9. Medical conditions treated in hospital: # anoxic brain injury # abdominal myoclonus # sedation for ventilation with Versed, propofol, fentanyl # tobacco use disorder # alcohol use disorder # cannabis use disorder # shock likely cardiogenic, recovered # cardiac arrest 2 times: status post return of spontaneous circulation unknown down time # acute on chronic heart failure with reduced ejection fraction likely ischemic cardiopathy # coronary artery disease, history of NM status post PCI 2 times status post restenting # NSTEMI status post cardiac catheterization and PCI PTCA and stenting of the circumflex coronary artery #V-tach, sustained, currently sinus rhythm # acute hypoxic respiratory failure due to cardiac arrest On mechanical ventilator # likely acute exacerbation of COPD #Vent Settings: AC/VC tidal volume 500, RR 26, peep of 5. # GI bleed, upper GI/lower GI bleed, history of upper GI ulcers # history of hemorrhoids # history of gastric/duodenal ulcers # transaminitis likely due to alcohol use disorder # sepsis with septic shock likely due to? Aspiration pneumonia # neurogenic Fever # polycythemia likely secondary to excessive smoking, improved # coagulopathy, improved # thrombocytopenia, recovered # metabolic acidosis with compensatory respiratory alkalosis , improved # hypokalemia, corrected # central diabetes insipidus secondary due to brain injury # hypovolemic hypernatremia The plan was discussed with the ICU attending Dr. Hanks. Code status: Changed from DNR/DNI to comfort measures only. Discharge planning needed 27 minutes minutes of detailed discussion with family and medical team. Consults/Reason for consult Cardiology, Neurology Operations or Procedures [address] [address] Ph: [phone] DIAGNOSTIC IMAGING Diagnostic Imaging Report : [id number] Signed PATIENT: SHAGGY LEWIS ACCT: [id number] UNIT: [id number] : 1970 LOC: OVERFLOW ROOM / BED: 102ER / A AGE / SEX: 54 / M ADM STATUS: ADM IN SERVICE 1116 ORDERING PHYSICIAN: MOUNIKA BETANCUR MD PROCEDURE(s): CAPIV - CT CHEST/AB/PL W CON- IV ONLY REASON: cardiac arrest, please do PE study and angio of abdomen ORDER NUMBER(s): [id number], ACCESSION NUMBER(s): [id number] CTA CHEST and CT ABDOMEN AND PELVIS CLINICAL HISTORY: cardiac arrest, please do PE study and angio of abdomen TECHNIQUE: Multiple contiguous axial images of the chest, abdomen and pelvis with intravenous contrast. The images were reformatted degenerate coronal and sagittal reconstructions. 100 cc of Omnipaque 300 contrast was injected intravenously. All CT scans at this medical facility are performed using dose modulation techniques as appropriate to a performed exam including the following:Automated exposure control was utilized; adjustment of the MA and/or KV according to patient size; and use of iterative reconstruction technique. Radiation Dose Information: CT Dose: CTDI volume is 15 mGy. Dose-length product is 05/06/2073 mGy*cm FINDINGS: There is no evidence of a pulmonary arterial filling defect to suggest pulmonary embolism. The main pulmonary artery appears normal in size. The thoracic aorta demonstrates normal caliber. The heart size is within normal limits. There is no pericardial effusion. There are moderate upper lobe predominant emphysematous changes in the lungs. There is curvilinear scarring versus atelectasis in the bilateral posterior lung bases. There is no focal lung consolidation. There is no pleural effusion or pneumothorax. There is no evidence of mediastinal mass or lymphadenopathy. There is no axillary lymphadenopathy. An endotracheal tube terminates above the joy. There is an NG tube in the esophagus terminating in the stomach. The liver, gallbladder, pancreas, kidneys, adrenal glands, and spleen appear within normal limits. There is no evidence of abdominal lymphadenopathy. There is no free fluid or free air. The stomach grossly appears unremarkable.The small and large bowel loops demonstrate normal caliber and appear within normal limits. Air intermixed with stool is seen throughout the colon. There are calcified atherosclerotic changes in the abdominal aorta. The IVC appears within normal limits. There is a Smith catheter in the bladder which is poorly filled. There is small amount of air in the bladder. Pelvic organ appears within normal limits. There is no evidence of a pelvic mass or lymphadenopathy. There is no free fluid collection. There is a central venous catheter in the right common femoral vein. There is no acute osseous abnormality. IMPRESSION: 1. There is no evidence of a pulmonary arterial filling defect to suggest pulmonary embolism. 2. Moderate upper lobe predominant emphysematous changes in the lungs. There is scarring versus atelectasis in the bilateral lung bases. 3. There is no acute process in the abdomen and pelvis. HS:Y ATED BY: ROBEL WALLER MD DICTATED DATE/TIME: 10/21/24 1323 SIGNED BY: ROBEL WALLER MD SIGNED DATE/TIME: 10/21/24 1323 CC: [place] [address] Ph: [phone] DIAGNOSTIC IMAGING Diagnostic Imaging Report : [id number] Signed PATIENT: SHAGGY LEWIS ACCT: [id number] UNIT: [id number] : 1970 [facility] AGE / SEX: 54 / M ADM STATUS: ADM IN SERVICE 102 ORDERING PHYSICIAN: MOUNIKA BETANCUR MD PROCEDURE(s): CXR1 - CHEST XRAY 1 VIEW REASON: OG and ET tube placement ORDER NUMBER(s): [id number], ACCESSION NUMBER(s): [id number] EXAM: XY CHEST XRAY 1 VIEW HISTORY: OG and ET tube placement COMPARISON: None TECHNIQUE: Portable AP views of the chest were performed. FINDINGS: Endotracheal tube is identified with its tip 7.5 cm above the joy. OG tube is identified with its tip at least 11 cm distal to the GE junction. Probable emphysematous changes of the upper lobes. There is mild interstitial prominence centrally and in the lung bases. Probable left lung base scarring. No pneumothorax. The heart is borderline enlarged. There are postoperative changes of ACDF. IMPRESSION: 1. Endotracheal and OG tubes as above. The endotracheal tube could be advanced 3 cm followed by repeat chest x-ray. 2. Interstitial prominence centrally and in the lung bases which may be due to reactive airways disease or mild CHF. ATED BY: DAT NIÑO MD DICTATED DATE/TIME: 10/21/24 1145 SIGNED BY: DAT NIÑO MD SIGNED DATE/TIME: 10/21/24 1145 CC: [address] [address] Ph: [phone] DIAGNOSTIC IMAGING Diagnostic Imaging Report : [id number] Signed PATIENT: SHAGGY LEWIS ACCT: [id number] UNIT: [id number] : 1970 LOC: OVERFLOW ROOM / BED: 1023-ER / A AGE / SEX: 54 / M ADM STATUS: ADM IN SERVICE 1116 ORDERING PHYSICIAN: MOUNIKA BETANCUR MD PROCEDURE(s): HWOCT - HEAD WITHOUT CONTRAST REASON: cardiac arrest ORDER NUMBER(s): [id number], ACCESSION NUMBER(s): [id number] EXAM: CT HEAD WITHOUT CONTRAST HISTORY: cardiac arrest COMPARISON: None TECHNIQUE: Axial images of the head were obtained and reformatted in coronal and sagittal planes. All CT scans at this medical facility are performed using dose modulation techniques as appropriate to a performed exam including the following: Automated exposure control was utilized; adjustment of the MA and/or KV according to patient size; and use of iterative reconstruction technique. CT Dose: CTDI volume is 66 mGy. Dose-length product is 1180 mGy*cm FINDINGS: There is no evidence of acute intracranial hemorrhage, mass, mass effect midline shift. There is no hydrocephalus or extra-axial fluid collection. Li-white matter differentiation is maintained. There is intravascular contrast noted. There is patchy mucosal thickening in the ethmoid and sphenoid sinuses. The mastoid air cells are clear. The calvarium is intact. IMPRESSION: 1. No acute intracranial process. HS:Y ATED BY: ROBEL WALLER MD DICTATED DATE/TIME: 10/21/24 1221 SIGNED BY: ROBEL WALLER MD SIGNED DATE/TIME: 10/21/24 1221 CC: [address] [address] Ph: [phone] DIAGNOSTIC IMAGING Diagnostic Imaging Report : [id number] Signed with Addenda PATIENT: SHAGGY LEWIS ACCT: [id number] UNIT: [id number] : 1970 LOC: ICU WEST ROOM / BED: 0107-CC / A AGE / SEX: 54 / M ADM STATUS: ADM IN SERVICE 36 ORDERING PHYSICIAN: LAZARO ALTMAN MD PROCEDURE(s): MBHL - BRAIN HEAD WO CONTRAST REASON: r/o cerebral edema ORDER NUMBER(s): [id number], ACCESSION NUMBER(s): [id number] ADDENDUM ADDENDUM # 1 No acute intracranial hemorrhage. The questioned subarachnoid hemorrhage on CT is consistent with pseudo-subarachnoid hemorrhage in the setting of diffuse anoxic injury. ORIGINAL REPORT PROCEDURE: MRI BRAIN HEAD WO CONTRAST INDICATION: r/o cerebral edema EXAM DATE: 10/26/2024 01:53 PM COMPARISON: CT head 10/25/2024 TECHNIQUE: MRI of the brain without intravenous contrast. FINDINGS: Diffuse cortical diffusion restriction in the bilateral cerebral hemispheres. There is relative sparing in the basal ganglia and thalami on DWI/ ADC; however, there is increased FLAIR hyperintensity in these structures as well as the quadrigeminal plate. There is at least mild effacement of the sulci, cisterns, and ventricles compared to what is expected for age. The cerebellar tonsils protrude 3 mm caudal to the foramen magnum without significant crowding. Punctate susceptibility artifact at the globus pallidus bilaterally which could represent minimal mineralization or old microhemorrhage. No evidence of acute intracranial hemorrhage. The major vascular flow voids are present. There is mucosal thickening and fluid seen throughout the paranasal sinuses. There is mild fluid signal in the bilateral mastoids. The surrounding soft tissues and osseous structures are unremarkable. IMPRESSION: 1. Findings are compatible with diffuse anoxic injury. 2. Mild diffuse effacement of the CSF spaces. The cerebellar tonsils are minimally low-lying although there is no significant crowding at the foramen magnum at this time. ATED BY: KI ECHEVERRIA DO DICTATED DATE/TIME: 10/26/242101 SIGNED BY: KI ECHEVERRIA DO SIGNED DATE/TIME: 10/26/242101 CC: PROCEDURE: MRI BRAIN HEAD WO CONTRAST INDICATION: r/o cerebral edema EXAM DATE: 10/26/2024 01:53 PM COMPARISON: CT head 10/25/2024 TECHNIQUE: MRI of the brain without intravenous contrast. FINDINGS: Diffuse cortical diffusion restriction in the bilateral cerebral hemispheres. There is relative sparing in the basal ganglia and thalami on DWI/ ADC; however, there is increased FLAIR hyperintensity in these structures as well as the quadrigeminal plate. There is at least mild effacement of the sulci, cisterns, and ventricles compared to what is expected for age. The cerebellar tonsils protrude 3 mm caudal to the foramen magnum without significant crowding. Punctate susceptibility artifact at the globus pallidus bilaterally which could represent minimal mineralization or old microhemorrhage. No evidence of acute intracranial hemorrhage. The major vascular flow voids are present. There is mucosal thickening and fluid seen throughout the paranasal sinuses. There is mild fluid signal in the bilateral mastoids. The surrounding soft tissues and osseous structures are unremarkable. IMPRESSION: 1. Findings are compatible with diffuse anoxic injury. 2. Mild diffuse effacement of the CSF spaces. The cerebellar tonsils are minimally low-lying although there is no significant crowding at the foramen magnum at this time. ATED BY: KI ECHEVERRIA DO DICTATED DATE/TIME: 10/26/241527 SIGNED BY: KI ECHEVERRIA DO SIGNED DATE/TIME: 10/26/241527 CC: [place] [address] Ph: [phone] DIAGNOSTIC IMAGING Diagnostic Imaging Report : [id number] Signed PATIENT: SHAGGY LEWIS ACCT: [id number] UNIT: [id number] : 1970 LOC: ICU [place] ROOM / BED: [address] [place] [address] / AGE / SEX: 54 / M ADM STATUS: ADM IN SERVICE 0700 ORDERING PHYSICIAN: NICK LOBO PROCEDURE(s): CXRP - CHEST PORTABLE REASON: Intubated ORDER NUMBER(s): [id number], ACCESSION NUMBER(s): [id number] EXAM: XR Chest, 1 View CLINICAL INDICATION: Intubated TECHNIQUE: Frontal view of the chest. COMPARISON: XY CHEST PORTABLE on DOS: 10/26/24, XY CHEST XRAY 1 VIEW on DOS: 10/26/24, XY CHEST PORTABLE on DOS: 10/25/24, XY CHEST PORTABLE on DOS: 10/24/24, XY CHEST PORTABLE on DOS: 10/23/24 FINDINGS: LUNGS AND PLEURAL SPACES: Bibasilar atelectasis or pneumonia. No pneumothorax. HEART: Unremarkable. No cardiomegaly. MEDIASTINUM: Unremarkable. Normal mediastinal contour. BONES/JOINTS: Unremarkable. No acute fracture. TUBES, LINES AND DEVICES: Stable tubes and lines. OTHER FINDINGS: . None. . .. IMPRESSION: Bibasilar atelectasis or pneumonia. ATED BY: JEFRY OCAMPO MD DICTATED DATE/TIME: 10/27/24645 SIGNED BY: JEFRY OCAMPO MD SIGNED DATE/TIME: 10/27/24645 CC: Patient: SHAGGY LEWIS Acct: [id number] : 1970 Loc: [facility] Age/Sex: 54/M Unit: [id number] Service Date:10/21/24 Neurology EEG Procedural Note Procedural Note EXAM DATE: 10/26/2024 REFERRING DOCTOR: Dr. Dumont TECHNIQUE: Eighteen channels of EEG, 2 channels of EOG, and 1 channel of EKG were recorded using the International 10/20 system. CLINICAL DATA: The patient was referred for an EEG evaluation for the evidence of seizure disorder. MEDICATIONS: See the chart BACKGROUND ACTIVITY: There was environmental artifacts in the recording. Likely this EEG showed diffuse low amplitude mixed delta and theta activity over both hemispheres ACTIVATION: Hyperventilation: Not done Photic Stimulation: Not done Sleep: Nonresponsiveness IMPRESSION: This is on remarkably abnormal EEG, this EEG seen in severe cerebral dysfunction due to metabolic/hypoxic encephalopathy or medication effects, please correlate clinically The EKG channel showed a regular heart rate of 60 per minute[place] [address]. AYANA DUMONT MD Oct 26, 2024 22:27 TRANSCRIBED BY:AYANA DUMONT MD TRANSCRIBED DATE/TIME:10/26/242226 ELECTRONICALLY SIGNED BY:AYANA DUMONT MD 10/26/242226 [address] [address] Ph: [phone] DIAGNOSTIC IMAGING Diagnostic Imaging Report : [id number] Signed PATIENT: SHAGGY LEWIS ACCT: [id number] UNIT: [id number] : 1970 LOC: CATH ICU ROOM / BED: Cath ICU / AGE / SEX: 54 / M ADM STATUS: ADM IN SERVICE 1229 ORDERING PHYSICIAN: ANGELO JUÁREZ PROCEDURE(s): ECIDC - ECHO 2D MODE CARDIAC DOP REASON: Post cardiac arrest s/p ROSC ORDER NUMBER(s): [id number], ACCESSION NUMBER(s): [id number] APPROVED REPORT EXAM: Two-dimensional and M-mode echocardiogram with Doppler and color Doppler. Blood Pressure: 90/63 mmHg INDICATION Post cardiac arrest s/p ROSC RISK FACTORS Height: 6'0", Weight: 176 DIMENSIONS LVDd 5.7 (3.8-5.7cm) LA (2D) (1.9-4.0cm) Aortic Root 3.6 (2.0- 3.7cm) LVDs 5.3 (2.5-4.0cm) LA (MM) (1.9-4.0cm) Aortic Cusp Exc 1.9 (1.5- 2.0cm) EF (%) 20.0 (55-70%) Rt. Atrium (1.9-4.0cm) Asc. Aorta cm IVSd 1.1 (0.7-1.1cm) RV (D) (1.8-2.4cm) PWd 0.9 (0.7-1.1cm) Mitral Valve Mitral Mitral Stenosis E wave 0.83m/s MV Mean GR. mmHg E/A ratio 0.0 2D MVA cm2 Aortic Valve Aortic Valve Aortic Stenosis V1 0.69m/s AO Mean GR. 2mmHg V2 1.07m/s AO Peak GR. 5mmHg LVOT Diameter 2.2 (1.8-2.4cm) Doppler CELINE 2.45cm2 Pulmonic Valve V2 0.76m/s Tricuspid Valve TR Velocity 2.55m/s RVSP 29mmHg Other Information Technically limited study due to body habitus, patient lying flat and on vent. Conclusion Technically good study. Sinus rhythm. Left ventricular enlargement. Left atrial enlargement. Valves appear to be structurally normal. Left ventricular function is markedly diminished. EF is around 20-25% at best with severe global hypokinesis especially of the inferior and lateral nicholson. Dopplers unremarkable. No pericardial effusion masses or vegetations discernible. SIGNED BY: INDIO BAIN Sr., MD SIGNED DATE/TIME: 10/21/24 1838 CC: Patient: SHAGGY LEWIS Acct: [id number] : 1970 Loc: CATH ICU Age/Sex: 54/M Room: Cath ICU / Bed: 5 Attending Phy: SLIM CASTANON DNP Operative Report - 2 Report Details Date: 10/21/24 Preop Diagnosis: Sudden syndrome Postop Diagnosis: . CAD. Severe cardiomyopathy Surgeon: Indio Bain MD Anesthesiologist: Patient on ventilator. Conscious sedation and propofol infusion Anesthesia: General Consent: The patient was informed of the risks and benefits of the procedure. These include but are not limited to complications of anesthesia, postoperative infection, incomplete relief of symptoms, recurrence of symptoms, damage to blood vessels, nerves and tendons, deep venous thrombosis, pulmonary embolism and possible need for repeat surgery in the future. Complications: No complications Estimated Blood Loss: 10 cc Findings: CAD. Cardiomyopathy. Indications for Surgery: Acute cardiac arrest Name of Procedure Performed Bilateral cine coronary angiography. Left ventriculography. PTCA and stenting of the circumflex coronary artery. Procedure Details Procedure Details: Prior local anesthesia with 2% lidocaine to the right wrist and full informed consent obtained patient was prepped and draped in usual fashion followed by placement of a six Montserratian sheath into the radial artery through which a 3.5 EBU guiding catheter was used for ventriculography and cannulation of both right and left coronary ostium as well as angioplasty of the Circumflex coronary artery. Hemodynamics: Aortic blood pressure was 90/50 MmHg. with an end-diastolic of 7 mmHg. There was no gradient across the aortic valve on pullback. Coronary anatomy: RCA is a Medium vessel it is normal in its proximal mid and distal segments PDA and posterolateral branches are normal. Left main is large and normal. Left anterior descending coronary artery is a large vessel it is normal in its proximal mid and distal segments. It has sluggish flow throughout. Noted endothelial dysfunction. Septals are free of significant disease. The 2nd diagonal has a 60-70% ostial lesion. It does not appear to be flow limiting. The circumflex is a large vessel it is normal in its proximal and mid section. The 1st obtuse marginal branch distally has a long tubular 80-90% stenosis. Prior to that there is a stent without in stent restenosis. Ventriculography performed in the DOE projection shows severe global hypokinesis with an EF of 25-30% at best. Angioplasty was performed for which a Specter wire was placed across the area of stenosis in the circumflex and a two 5 x 20 mm balloon was used to pre dilate followed by a 3-0 by 26 mm sabine Medtronic drug-eluting stent was used. This was inflated distally at approximately nine atmospheres. Proximally we post dilated with 14 atmospheres. There was excellent antegrade flow without thrombus formation and/ or dissection. Impression: Normal left ventricular end-diastolic pressure at rest with markedly decreased left ventricular ejection fraction and a dilated left ventricle. Significant CAD involving the circumflex with a de Ene lesion in the circumflex marginal distal to the previously stented segment. Recommendations: Dual antiplatelet therapy. Risk factor modification to continue. Guarded prognosis. Condition Critical Disposition Still a Patient Date of Service: Oct 21, 2024 Billing Provider: INDIO BAIN Sr., MD Cardiology Common Codes: 81017-[id number] INP/OBS CARE (High) Cardiology Procedure Codes: 38661-BQGVIF VESSEL W/I VASC FAM, 25590 -PTCA W/STENT PLACEMENT, 01372-MVBJ FOR STEMI W/STENT INDIO BAIN Sr., MD Oct 21, 2024 17:34 DICTATED BY:INDIO BAIN Sr., MD DICTATED DATE/TIME:10/21/241733 ELECTRONICALLY SIGNED BY:INDIO BAIN Sr., MD 10/21/241733 ELECTRONICALLY CO-SIGNED BY: Condition at Discharge: Unstable Final Diagnosis/Problems List CAD. Severe cardiomyopathy Cardiac arrest Anoxic brain injury Discharge Disposition: shortly after terminal extubation. Discharge Statement: "Patient was advised to return to the ER or call 911 if any headaches, dizziness, shortness of breath, chest pain, abdominal pain, bleeding, fevers, or worsening of medical condition. Patient was counseled about treatment plan, medications, possible side effects, patientverbalized understanding. All questions were answered to the best of my ability. This discharge took greater then 30 minutes in planning, reviewing documentation, counseling the patient, and discussing with other team members." ASSESSMENT ASSESSMENT Assessment . CAD. Severe cardiomyopathy JASON HANSEN RESIDENT Oct 29, 2024 22:53
== END 2024-10-29 23:56 | DRG 853 ==
LOC: ER 10:04 → EDSEX 10:04 → EDBD 10:04 → CATH ICU 15:41 → UNDOADMIN 15:41 → EDUNIT# 15:41 → OVERFLOW 15:41 → ICU WEST 20:49
PROVIDERS: ADMIT Internal Medicine; ATTEND Emergency Medicine
PROC: 027034Z Dilation of Coronary Artery, One Artery with Drug-eluting Intraluminal Device, Percutaneous Approach (ICD-10-PCS; principal; 2024-10-21)
PROC: B2111ZZ Fluoroscopy of Multiple Coronary Arteries using Low Osmolar Contrast (ICD-10-PCS; 2024-10-21)
PROC: 0BH17EZ Insertion of Endotracheal Airway into Trachea, Via Natural or Artificial Opening (ICD-10-PCS; 2024-10-21)
PROC: 5A1955Z Respiratory Ventilation, Greater than 96 Consecutive Hours (ICD-10-PCS; 2024-10-21)
PROC: B2151ZZ Fluoroscopy of Left Heart using Low Osmolar Contrast (ICD-10-PCS; 2024-10-21)
PROC: 4A023N7 Measurement of Cardiac Sampling and Pressure, Left Heart, Percutaneous Approach (ICD-10-PCS; 2024-10-21)
PROC: 5A12012 Performance of Cardiac Output, Single, Manual (ICD-10-PCS; 2024-10-21)
PROC: 06HY33Z Insertion of Infusion Device into Lower Vein, Percutaneous Approach (ICD-10-PCS; 2024-10-21)
PROC: 02HV33Z Insertion of Infusion Device into Superior Vena Cava, Percutaneous Approach (ICD-10-PCS; 2024-10-24)
PROC: B548ZZA Ultrasonography of Superior Vena Cava, Guidance (ICD-10-PCS; 2024-10-24)
DX: A41.51 Sepsis due to Escherichia coli [E. coli] (principal); G92.8 Other toxic encephalopathy; I21.4 Non-ST elevation (NSTEMI) myocardial infarction; R65.21 Severe sepsis with septic shock; J96.01 Acute respiratory failure with hypoxia; J69.0 Pneumonitis due to inhalation of food and vomit; G93.6 Cerebral edema; I50.23 Acute on chronic systolic (congestive) heart failure; J15.5 Pneumonia due to Escherichia coli; N17.0 Acute kidney failure with tubular necrosis; N39.0 Urinary tract infection, site not specified; E87.20 Acidosis, unspecified; I47.20 Ventricular tachycardia, unspecified; K92.2 Gastrointestinal hemorrhage, unspecified; G93.1 Anoxic brain damage, not elsewhere classified; J44.1 Chronic obstructive pulmonary disease with (acute) exacerbation; J44.0 Chronic obstructive pulmonary disease with (acute) lower respiratory infection; M62.82 Rhabdomyolysis; D68.9 Coagulation defect, unspecified; I25.10 Atherosclerotic heart disease of native coronary artery without angina pectoris; I46.2 Cardiac arrest due to underlying cardiac condition; I49.01 Ventricular fibrillation; I25.5 Ischemic cardiomyopathy; D69.6 Thrombocytopenia, unspecified; D45 Polycythemia vera; E11.65 Type 2 diabetes mellitus with hyperglycemia; E78.5 Hyperlipidemia, unspecified; Z20.822 Contact with and (suspected) exposure to COVID-19; E87.6 Hypokalemia; Y90.9 Presence of alcohol in blood, level not specified; E11.42 Type 2 diabetes mellitus with diabetic polyneuropathy; F10.10 Alcohol abuse, uncomplicated; R74.01 Elevation of levels of liver transaminase levels; G89.29 Other chronic pain; I11.0 Hypertensive heart disease with heart failure; F32.A Depression, unspecified; F41.9 Anxiety disorder, unspecified; M54.9 Dorsalgia, unspecified; J43.9 Emphysema, unspecified; Z98.1 Arthrodesis status; I25.2 Old myocardial infarction; Z87.891 Personal history of nicotine dependence; Z98.61 Coronary angioplasty status; Z87.11 Personal history of peptic ulcer disease; Z79.02 Long term (current) use of antithrombotics/antiplatelets; Z79.82 Long term (current) use of aspirin; Z79.899 Other long term (current) drug therapy
CPT/HCPCS: 31500; 36415; 36556; 36569; 36600; 70450; 70551; 71045; 71260; 74177; 76705; 76937; 80048; 80053; 80061; 80076; 80202; 80307; 81001; 82270; 82550; 82565; 82746; 82805; 82962; 83540; 83550; 83605; 83690; 83735; 83880; 84132; 84270; 84402; 84403; 84443; 84484; 85014; 85018; 85025; 85384; 85610; 85730; 86706; 86803; 86850; 86900; 86901; 87040; 87070; 87077; 87081; 87086; 87186; 87205; 87340; 87426; 87804; 92941; 92950; 93005; 93306; 93458; 94003; 95819; 99152; G0378; J0171; J1815; J2405; J2470; J2543; J2704; J3480; Q9967